=== PATIENT | female | born 1990 | race Hispanic/Latino ===

== ENCOUNTER 2018-01-01 16:11 | Emergency (ER) | payer OTHER, SELFPAY ==
[2018-01-01] MEDS ORDERED: NA CHLORIDE 0.9% 1,000 ML ONE (16:39)
[2018-01-01 16:53] LABS: Absolute Lymphocytes (CBC) 0.7 K/uL (0.7-4.9); Absolute Monocytes 0.5 K/uL (0.1-1.3); Absolute Neutrophil 2.3 K/uL (1.8-8.0); Basophils % 0.2 % (0-1.3); Eosinophils % 0.1 % (0-4.4); Lymphocytes % 20.9 % (15.3-44.8); MCH 28.7 pg (27.0-35.0); MCV 85.3 fL (80-100); MPV 10.1 fL (7.6-11.3); Monocytes % 13.7 % (3.3-12.3); RBC Red Blood Cell Count 5.27 M/uL (3.86-4.86)
--- NOTE | 2018-01-01 17:16 | EDPHYS ---
Physician Documentation [facility] Name: Meron Delvalle Age: 27 yrs Sex: Female : 1990 Arrival Date: 01/01/2018 Time: 16:12 Bed 16 Private MD: None, None ED Physician Myron Trna HPI: 01/01 17:08 This 27 yrs old Female presents to ER via Ambulatory with complaints of Flu gay Symptoms. 17:08 The patient or guardian reports cough. Onset: The symptoms/episode began/occurred 2 gay day(s) ago. Modifying factors: The symptoms are alleviated by nothing. the symptoms are aggravated by cold environment. The patient or guardian reports cough, that is intermittent, hoarse voice. Severity of symptoms: At their worst the symptoms were mild, in the emergency department the symptoms are unchanged. Associated signs and symptoms: Pertinent positives: fever, rhinorrhea, sore throat. Severity of symptoms: At their worst the symptoms were mild moderate in the emergency department the symptoms are unchanged. 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 - Social history:: Smoking status: Patient/guardian denies using tobacco. - Ebola Screening: : No symptoms or risks identified at this time. ROS: 17:08 Constitutional: Negative for fever, chills, and weight loss, Eyes: Negative for injury, gay pain, redness, and discharge, Neck: Negative for injury, pain, and swelling, Respiratory: Negative for shortness of breath, cough, wheezing, and pleuritic chest pain, Abdomen/GI: Negative for abdominal pain, nausea, vomiting, diarrhea, and constipation, Back: Negative for injury and pain, : Negative for injury, bleeding, discharge, and swelling, MS/Extremity: Negative for injury and deformity, Skin: Negative for injury, rash, and discoloration, Neuro: Negative for headache, weakness, numbness, tingling, and seizure, Psych: Negative for depression, anxiety, suicide ideation, homicidal ideation, and hallucinations, Allergy/Immunology: Negative for hives, rash, and allergies, Endocrine: Negative for neck swelling, polydipsia, polyuria, polyphagia, and marked weight changes, Hematologic/Lymphatic: Negative for swollen nodes, abnormal bleeding, and unusual bruising. 17:08 ENT: Positive for difficulty swallowing. Exam: 17:08 Constitutional: This is a well developed, well nourished patient who is awake, alert, gay and in no acute distress. Head/Face: Normocephalic, atraumatic. Eyes: Pupils equal round and reactive to light, extra-ocular motions intact. Lids and lashes normal. Conjunctiva and sclera are non-icteric and not injected. Cornea within normal limits. Periorbital areas with no swelling, redness, or edema. Neck: Trachea midline, no thyromegaly or masses palpated, and no cervical lymphadenopathy. Supple, full range of motion without nuchal rigidity, or vertebral point tenderness. No Meningismus. Chest/axilla: Normal chest wall appearance and motion. Nontender with no deformity. No lesions are appreciated. Cardiovascular: Regular rate and rhythm with a normal S1 and S2. No gallops, murmurs, or rubs. Normal PMI, no JVD. No pulse deficits. Respiratory: Lungs have equal breath sounds bilaterally, clear to auscultation and percussion. No rales, rhonchi or wheezes noted. No increased work of breathing, no retractions or nasal flaring. Abdomen/GI: Soft, non-tender, with normal bowel sounds. No distension or tympany. No guarding or rebound. No evidence of tenderness throughout. Back: No spinal tenderness. No costovertebral tenderness. Full range of motion. Skin: Warm, dry with normal turgor. Normal color with no rashes, no lesions, and no evidence of cellulitis. MS/ Extremity: Pulses equal, no cyanosis. Neurovascular intact. Full, normal range of motion. Neuro: Awake and alert, GCS 15, oriented to person, place, time, and situation. Cranial nerves II-XII grossly intact. Motor strength 5/5 in all extremities. Sensory grossly intact. Cerebellar exam normal. Normal gait. Psych: Awake, alert, with orientation to person, place and time. Behavior, mood, and affect are within normal limits. 17:08 ENT: Posterior pharynx: Tonsils: with erythema, Uvula: normal, midline, swelling, that is mild, erythema, that is mild. 17:08 Neck: ROM/movement: is normal, no acute changes, Meningeal signs: are not present, Kernig's sign is negative, Brudzinski's sign is negative. Vital Signs: 16:18 BP 136 / 101; Pulse 107; Resp 20; Temp 100.8; Pulse Ox 97% ; Weight 81.65 kg; Height 5 sv ft. 3 in. (160.02 cm); Pain 8/10; 17:31 BP 117 / 78; Pulse 95; Resp 18; Temp 99.6(O); Pulse Ox 100% on R/A; mg2 16:18 Body Mass Index 31.89 (81.65 kg, 160.02 cm) sv MDM: 16:21 Patient medically screened. [facility] 17:13 Data reviewed: vital signs, nurses notes, lab test result(s). [facility] 01/01 16:29 Order name: Flu [facility] 01/01 16:29 Order name: CBC with Diff [facility] 01/01 16:29 Order name: Comprehensive Metabolic Panel [facility] 01/01 16:29 Order name: Urine Culture [facility] 01/01 16:30 Order name: Strep [facility] 01/01 16:58 Order name: CBC with Automated Diff [facility] 01/01 16:58 Order name: Group A Streptococcus Rapid Sc; Complete Time: 17:13 [facility] 01/01 17:07 Order name: Influenza Screen (A ; Complete Time: 17:13 [facility] 01/01 17:22 Order name: CBC Smear Scan [facility] 01/01 17:22 Order name: Comprehensive Metabolic Panel [facility] 01/01 17:23 Order name: Urine Dipstick--Ancillary (enter results) 01/01 17:23 Order name: Urine --Ancillary (enter results) 01/01 16:29 Order name: Urine Dipstick-Ancillary (obtain specimen); Complete Time: 17:23 [facility] 01/01 16:29 Order name: Urine Test (obtain specimen); Complete Time: 17:23 [facility] Administered Medications: 16:29 Drug: NS 0.9% 1000 ml Route: IV; Rate: 1 bolus; Site: right antecubital; mg2 17:24 Follow up: IV Status: Completed infusion 17:15 Drug: Rocephin - (cefTRIAXone) 1 grams Route: IVPB; Infused Over: 30 mins; Site: right mg2 antecubital; 17:24 Follow up: IV Status: Completed infusion hj 17:23 Drug: Tamiflu 75 mg Route: PO; mg2 17:24 Follow up: Response: No adverse reaction hj 17:28 Drug: TORadol 30 mg Route: IVP; Site: right forearm; mg2 17:44 Follow up: Response: No adverse reaction Disposition: 01/01/18 17:15 Discharged to Home. Impression: Fever of other and unknown origin, Influenza due to identified novel influenza A virus, Urinary tract infection, site not specified. - Condition is Stable. - Discharge Instructions: Fever, Adult, Influenza, Adult, Urinary Tract Infection, Adult, Urinary Tract Infection, Adult, [id number], Influenza, Adult, Eqll-ne-[id number], Fever, Adult, [id number]. - Prescriptions for Zofran 4 mg Oral Tablet - take 1 tablet by ORAL route every 12 hours As needed; 20 tablet. Bactrim DS 800- 160 mg Oral Tablet - take 1 tablet by ORAL route every 12 hours for 5 days; 10 tablet. Tamiflu 75 mg Oral Capsule - take 1 tablet by ORAL route every 12 hours for 5 days; 10 tablet. - Medication Reconciliation Form, Thank You Letter, Antibiotic Education, Prescription Opioid Use, Work release form form. - Follow up: Private Physician; When: 2 - 3 days; Reason: Recheck today's complaints, Continuance of care, Re-evaluation by your physician. - Problem is new. - Symptoms have improved. Signatures: Dispatcher [employer] Kristy Torres RN RN sv Anderson, Corey, MD MD cha Joaquin, Henry, RN RN Sean eRyes RN RN mg2 Corrections: (The following items were deleted from the chart) 18:00 17:15 01/01/2018 17:15 Discharged to Home. Impression: Fever of other and unknown hj origin; Influenza due to identified novel influenza A virus; Urinary tract infection, site not specified. Condition is Stable. Forms are Medication Reconciliation Form, Thank You Letter, Antibiotic Education, Prescription Opioid Use. Follow up: Private Physician; When: 2 - 3 days; Reason: Recheck today's complaints, Continuance of care, Re-evaluation by your physician. Problem is new. Symptoms have improved. gay
--- NOTE | 2018-01-01 17:16 | ER ---
Nurse's Notes [facility] Name: Meron Delvalle Age: 27 yrs Sex: Female : 1990 Arrival Date: 01/01/2018 Time: 16:12 Bed 16 Private MD: None, None Diagnosis: Fever of other and unknown origin;Influenza due to identified novel influenza A virus;Urinary tract infection, site not specified Presentation: 01/01 16:16 Presenting complaint: Patient states: migraine with photophobia, bodyaches, chills, sv sore throat since Monday. Transition of care: patient was not received from another setting of care. Onset of symptoms was December 30, 2017. Care prior to arrival: None. 16:16 Method Of Arrival: Ambulatory sv 16:16 Acuity: MACI 3 sv 16:21 Risk Assessment: Do you want to hurt yourself or someone else? Patient reports no hj desire to harm self or others. Initial Sepsis Screen: Does the patient meet any 2 criteria? No. Patient's initial sepsis screen is negative. Does the patient have a suspected source of infection? No. Patient's initial sepsis screen is negative. Triage Assessment: 16:19 General: Appears in no apparent distress. uncomfortable, Behavior is calm, cooperative, sv appropriate for age. Pain: Complains of pain in face and scalp Pain currently is 8 out of 10 on a pain scale. Neuro: Level of Consciousness is awake, alert, obeys commands, Oriented to person, place, time, situation, Moves all extremities. Full function Gait is steady, Reports headache photophobia. Respiratory: Respiratory effort is even, unlabored, Respiratory pattern is regular, symmetrical. 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 - Social history:: Smoking status: Patient/guardian denies using tobacco. - Ebola Screening: : No symptoms or risks identified at this time. Screenin:20 Abuse screen: Denies threats or abuse. Denies injuries from another. Nutritional hj screening: No deficits noted. Tuberculosis screening: No symptoms or risk factors identified. Fall Risk None identified. Assessment: 16:40 General: Appears in no apparent distress. uncomfortable, Behavior is calm, cooperative, mg2 appropriate for age. Pain: Denies pain. Pain: Complains of pain in head, throat. Neuro: Level of Consciousness is awake, alert, obeys commands, Oriented to person, place, time, situation, Appropriate for age. Cardiovascular: Capillary refill < 3 seconds Patient's skin is warm and dry. Respiratory: Airway is patent Respiratory effort is even, unlabored, Respiratory pattern is regular, symmetrical. GI: : No signs and/or symptoms were reported regarding the genitourinary system. EENT: No signs and/or symptoms were reported regarding the EENT system. Derm: No signs and/or symptoms reported regarding the dermatologic system. Musculoskeletal: No signs and/or symptoms reported regarding the musculoskeletal system. 17:43 Reassessment: Patient and/or family updated on plan of care and expected duration. Pain hj level reassessed. Patient is alert, oriented x 3, equal unlabored respirations, skin warm/dry/pink. for D/C;. Vital Signs: 16:18 BP 136 / 101; Pulse 107; Resp 20; Temp 100.8; Pulse Ox 97% ; Weight 81.65 kg; Height 5 sv ft. 3 in. (160.02 cm); Pain 8/10; 17:31 BP 117 / 78; Pulse 95; Resp 18; Temp 99.6(O); Pulse Ox 100% on R/A; mg2 16:18 Body Mass Index 31.89 (81.65 kg, 160.02 cm) sv ED Course: 16:12 Patient arrived in ED. mr 16:13 None, None is Private Physician. mr 16:17 Triage completed. sv 16:18 Arm band placed on. sv 16:20 [place] Jaramillo, JOSÉ ANTONIO is Primary Nurse. hj 16:21 Myron Tran MD is Attending Physician. gay 16:21 Patient has correct armband on for positive identification. Bed in low position. Call hj light in reach. Side rails up X 1. Adult w/ patient. 16:40 Initial lab(s) drawn, by me, sent to lab. Inserted saline lock: 22 gauge in right mg2 antecubital area, using aseptic technique. Blood collected. 17:53 No provider procedures requiring assistance completed. IV discontinued, intact, hj bleeding controlled, No redness/swelling at site. Pressure dressing applied. Administered Medications: 16:29 Drug: NS 0.9% 1000 ml Route: IV; Rate: 1 bolus; Site: right antecubital; mg2 17:24 Follow up: IV Status: Completed infusion hj 17:15 Drug: Rocephin - (cefTRIAXone) 1 grams Route: IVPB; Infused Over: 30 mins; Site: right mg2 antecubital; 17:24 Follow up: IV Status: Completed infusion hj 17:23 Drug: Tamiflu 75 mg Route: PO; mg2 17:24 Follow up: Response: No adverse reaction hj 17:28 Drug: TORadol 30 mg Route: IVP; Site: right forearm; mg2 17:44 Follow up: Response: No adverse reaction Outcome: 17:15 Discharge ordered by . [facility] 17:53 Discharged to home ambulatory, with family. 17:53 Condition: stable 17:53 Discharge instructions given to patient, family, Instructed on discharge instructions, follow up and referral plans. medication usage, Demonstrated understanding of instructions, follow-up care, medications, Prescriptions given X 3. 18:00 Patient left the ED. Signatures: Kristy Steward, RN RN Myron Payton MD MD cha Rivera, Mary mr Cuba Jaramillo RN RN Sean Reyes RN RN mg2 Corrections: (The following items were deleted from the chart) 16:19 16:16 Presenting complaint: Patient states: migraine, bodyaches, chills, sore throat sv since Monday. sv 16:19 16:18 Pulse 107bpm; Resp 20bpm; Pulse Ox 97%; Temp 100.8F; sv sv 16:19 16:18 Pulse 107bpm; Resp 20bpm; Pulse Ox 97%; Temp 100.8F; 81.65 kg; Height 5 ft. 3 sv in.; BMI: 31.8; Pain 8/10; sv
[2018-01-01 17:21] LABS: Platelet Estimate ADEQ; Urine White Blood Cell Casts OK
[2018-01-01 17:22] LABS: Albumin 4.1 g/dL (3.4-5.0); Bilirubin Total 0.4 mg/dL (0.2-1.0); Blood Morphology Comment NOT SEEN (NOT SEEN); Potassium 3.5 mmol/L (3.5-5.1); Protein, Total 8.2 g/dL (6.4-8.2)
[2018-01-01] MEDS ORDERED: OSELTAMIVIR 75 MG CAP ONE (17:27)
[2018-01-01] MEDS ORDERED: CEFTRIAXONE/SWI 1gm 1 GM/10 ML SYR ONE (17:28)
[2018-01-01] MEDS ORDERED: KETOROLAC 30 MG/ML INJ ONE (17:35)
[2018-01-01 18:35] LABS: Urine Blood 2+ (NEG); Urine Glucose NEGATIVE (NEG); Urine Protein TRACE (NEG); Urine Specific Gravity >1.030 (1.005-1.030)
[2018-01-01 19:52] VITALS: BP 117/78; TEMP 99.6; O2SAT 100
== END 2018-01-01 18:00 | disposition home or self-care (01) ==
LOC: ER 16:11
DX: J10.1 Influenza due to other identified influenza virus with other respiratory manifestations (principal); N39.0 Urinary tract infection, site not specified
CPT/HCPCS: 36415; 80053; 81003; 81025; 85025; 87070; 87081; 87086; 87088; 87804; 99284; J0696; J7030

== ENCOUNTER 2018-11-28 07:42 | Emergency (ER) | payer SELFPAY ==
--- NOTE | 2018-11-28 08:16 | EDPHYS ---
Physician Documentation [facility] Name: Meron Delvalle Age: 28 yrs Sex: Female : 1990 Arrival Date: 11/28/2018 Time: 07:45 Bed 7 Private MD: None, None ED Physician Aaron Zazueta HPI: 11/28 07:49 This 28 yrs old Female presents to ER via Unassigned with complaints of Hand kdr Swelling, Feet Swelling. 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 - Social history:: Smoking status: Patient/guardian denies using tobacco. - Ebola Screening: : Patient negative for fever greater than or equal to 101.5 degrees Fahrenheit, and additional compatible Ebola Virus Disease symptoms Patient denies exposure to infectious person Patient denies travel to an Ebola-affected area in the 21 days before illness onset No symptoms or risks identified at this time. Vital Signs: 08:08 BP 132 / 98; Pulse 86; Resp 16; Temp 97.8; Pulse Ox 100% on R/A; Weight 97.52 kg; iw Height 5 ft. 3 in. (160.02 cm); 08:08 Body Mass Index 38.09 (97.52 kg, 160.02 cm) iw MDM: 08:15 Patient medically screened. kdr Administered Medications: 08:35 Drug: predniSONE 40 mg Route: PO; sv 08:35 Follow up: Response: Medication administered at discharge. sv Disposition: 11/28/18 08:15 Discharged to Home. Impression: Rash and other nonspecific skin eruption, Pruritus. - Condition is Stable. - Prescriptions for Hydroxyzine HCl 25 mg Oral Tablet - take 1 tablet by ORAL route every 6 hours As needed; 20 tablet. Medrol (Emery) 4 mg Oral Tablets, Dose Pack - take 1 tablet by ORAL route as directed - follow package instructions; 1 packet. Pepcid 20 mg Oral Tablet - take 1 tablet by ORAL route once daily; 20 tablet. - Medication Reconciliation Form, Thank You Letter form. - Follow up: Private Physician; When: 2 - 3 days; Reason: If symptoms return, Further diagnostic work-up, Recheck today's complaints, Continuance of care, Re-evaluation by your physician. - Problem is new. - Symptoms have improved. Signatures: Kristy Steward, RN RN Aaron Zazueta MD MD [facility] Sharmin Lee RN RN iw Corrections: (The following items were deleted from the chart) 08:36 08:15 11/28/2018 08:15 Discharged to Home. Impression: Rash and other nonspecific skin sv eruption; Pruritus. Condition is Stable. Forms are Medication Reconciliation Form, Thank You Letter, Antibiotic Education, Prescription Opioid Use. Follow up: Private Physician; When: 2 - 3 days; Reason: If symptoms return, Further diagnostic work-up, Recheck today's complaints, Continuance of care, Re-evaluation by your physician. Problem is new. Symptoms have improved. kdr
--- NOTE | 2018-11-28 08:16 | ER ---
Nurse's Notes [facility] Name: Meron Delvalle Age: 28 yrs Sex: Female : 1990 Arrival Date: 11/28/2018 Time: 07:45 Bed 7 Private MD: None, None Diagnosis: Rash and other nonspecific skin eruption;Pruritus Presentation: 11/28 08:02 Presenting complaint: Patient states: woke up this morning with feet and hand swelling, iw feels itchy and tingly and also has some bumps on the back of her head that have been bothering her. Transition of care: patient was not received from another setting of care. Onset of symptoms was November 28, 2018. Risk Assessment: Do you want to hurt yourself or someone else? Patient reports no desire to harm self or others. Initial Sepsis Screen: Does the patient meet any 2 criteria? No. Patient's initial sepsis screen is negative. Does the patient have a suspected source of infection? No. Patient's initial sepsis screen is negative. Care prior to arrival: None. 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 - Social history:: Smoking status: Patient/guardian denies using tobacco. - Ebola Screening: : Patient negative for fever greater than or equal to 101.5 degrees Fahrenheit, and additional compatible Ebola Virus Disease symptoms Patient denies exposure to infectious person Patient denies travel to an Ebola-affected area in the 21 days before illness onset No symptoms or risks identified at this time. Screenin:07 Abuse screen: Denies threats or abuse. Denies injuries from another. Nutritional sv screening: No deficits noted. Tuberculosis screening: No symptoms or risk factors identified. Fall Risk None identified. Assessment: 08:20 General: Appears in no apparent distress. uncomfortable, well developed, Behavior is sv calm, cooperative, appropriate for age. General: Reports itching to feet and hands. Pain: Denies pain. Neuro: Level of Consciousness is awake, alert, obeys commands, Oriented to person, place, time, situation, Moves all extremities. Full function Gait is steady. Respiratory: Airway is patent Respiratory effort is even, unlabored, Respiratory pattern is regular, symmetrical. Derm: Skin is pink, warm \\T\\ dry. Wound noted scalp Wound is "bumps". Musculoskeletal: Range of motion: intact in all extremities. Vital Signs: 08:08 BP 132 / 98; Pulse 86; Resp 16; Temp 97.8; Pulse Ox 100% on R/A; Weight 97.52 kg; iw Height 5 ft. 3 in. (160.02 cm); 08:08 Body Mass Index 38.09 (97.52 kg, 160.02 cm) iw ED Course: 07:45 Patient arrived in ED. mr 07:45 None, None is Private Physician. mr 07:48 Aaron Zazueta MD is Attending Physician. kdr 07:59 Kristy Steward RN is Primary Nurse. sv 07:59 Arm band placed on. sv 07:59 Patient has correct armband on for positive identification. Bed in low position. Call sv light in reach. Pulse ox on. NIBP on. 08:05 Triage completed. iw 08:35 No provider procedures requiring assistance completed. Patient did not have IV access sv during this emergency room visit. Administered Medications: 08:35 Drug: predniSONE 40 mg Route: PO; sv 08:35 Follow up: Response: Medication administered at discharge. sv Outcome: 08:15 Discharge ordered by . kdr 08:35 Discharged to home ambulatory. sv 08:35 Condition: stable 08:35 Discharge instructions given to patient, Instructed on discharge instructions, follow up and referral plans. medication usage, Demonstrated understanding of instructions, follow-up care, medications, Prescriptions given X 3. 08:36 Patient left the ED. sv Signatures: Kristy Steward, JOSÉ ANTONIO CHOU Aaron Zazueta MD MD [facility] aaron Irene, RN RN iw
[2018-11-28] MEDS ORDERED: predniSONE 20 MG TAB ONE (08:21)
[2018-11-28 08:41] VITALS: BP 132/98; TEMP 97.8; O2SAT 100
== END 2018-11-28 08:36 | disposition home or self-care (01) ==
LOC: ER 07:42
DX: L29.9 Pruritus, unspecified (principal)
CPT/HCPCS: 99283; J7512

== ENCOUNTER 2018-11-30 02:24 | Emergency (ER) | payer SELFPAY ==
[2018-11-30] MEDS ORDERED: IBUPROFEN 200 MG TAB PO ONE (03:51)
[2018-11-30 03:55] LABS: Absolute Lymphocytes (CBC) 1.5 K/uL (0.7-4.9); Basophils % 0.9 % (0-1.3); Hematocrit 36.6 % (36.0-45.0); Lymphocytes % 28.1 % (15.3-44.8); MPV 8.9 fL (7.6-11.3); RBC Red Blood Cell Count 4.41 M/uL (3.86-4.86)
[2018-11-30 04:07] LABS: BUN Blood Urea Nitrogen 8 mg/dL (7-18); Bicarbonate 26 mmol/L (21-32); Glucose Level 95 mg/dL (74-106); Potassium 3.2 mmol/L (3.5-5.1); Sodium Level 143 mmol/L (136-145)
[2018-11-30 04:10] LABS: C-Reactive Protein < 2.90 mg/L (<3.00)
[2018-11-30] MEDS ORDERED: KETOROLAC 30 MG/ML INJ ONE (05:06)
--- NOTE | 2018-11-30 05:25 | EDPHYS ---
Physician Documentation [facility] Name: Meron Delvalle Age: 28 yrs Sex: Female : 1990 Arrival Date: 11/30/2018 Time: 02:30 Bed 20 Private MD: ED Physician Aaron Zazueta HPI: 11/30 03:27 This 28 yrs old Female presents to ER via Ambulatory with complaints of kdr Nausea, Hand Pain, Pressure iin back of head, lIghit headed. 03:27 The patient states that she awoke this evening with her hands and feet feeling tight kdr and painful and the also was having altman along the occipital scalp line ongoing for four days. Onset: The symptoms/episode began/occurred The hands and feet were just upon awakening and the occiptal hairline discomfort has been for a few days. Severity of symptoms: At their worst the symptoms were mild in the emergency department the symptoms have improved mildly. The patient has not experienced similar symptoms in the past. The patient has not recently seen a physician. 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 - Social history:: Smoking status: Patient/guardian denies using tobacco, Patient/guardian denies using alcohol, street drugs. - Ebola Screening: : No symptoms or risks identified at this time. ROS: 03:27 Constitutional: Negative for fever, chills, and weight loss, Eyes: Negative for injury, kdr pain, redness, and discharge, Neck: Negative for injury, pain, and swelling, Cardiovascular: Negative for chest pain, palpitations, and edema, Respiratory: Negative for shortness of breath, cough, wheezing, and pleuritic chest pain, Abdomen/GI: Negative for abdominal pain, nausea, vomiting, diarrhea, and constipation, Back: Negative for injury and pain, : Negative for injury, bleeding, discharge, and swelling, Skin: Negative for injury, rash, and discoloration, Neuro: Negative for headache, weakness, numbness, tingling, and seizure activity. Psych: Negative for depression, anxiety, suicide ideation, homicidal ideation, and hallucinations, Allergy/Immunology: Negative for hives, rash, and allergies, Endocrine: Negative for neck swelling, polydipsia, polyuria, polyphagia, and marked weight changes, Hematologic/Lymphatic: Negative for swollen nodes, abnormal bleeding, and unusual bruising. 03:27 Neck: Positive for pain at rest, of the right posterior aspect of neck and left posterior aspect of neck. 03:27 MS/extremity: Positive for Tightness in her hands and feet. Exam: 03:27 Constitutional: This is a well developed, well nourished patient who is awake, alert, kdr and in no acute distress. Eyes: Pupils equal round and reactive to light, extra-ocular motions intact. Lids and lashes normal. Conjunctiva and sclera are non-icteric and not injected. Cornea within normal limits. Periorbital areas with no swelling, redness, or edema. Neck: Trachea midline, no thyromegaly or masses palpated, and no cervical lymphadenopathy. Supple, full range of motion without nuchal rigidity, or vertebral point tenderness. No Meningismus. Chest/axilla: Normal chest wall appearance and motion. Nontender with no deformity. No lesions are appreciated. Cardiovascular: Regular rate and rhythm with a normal S1 and S2. No gallops, murmurs, or rubs. Normal PMI, no JVD. No pulse deficits. Respiratory: Lungs have equal breath sounds bilaterally, clear to auscultation and percussion. No rales, rhonchi or wheezes noted. No increased work of breathing, no retractions or nasal flaring. Abdomen/GI: Soft, non-tender, with normal bowel sounds. No distension or tympany. No guarding or rebound. No evidence of tenderness throughout. Back: No spinal tenderness. No costovertebral tenderness. Full range of motion. Skin: Warm, dry with normal turgor. Normal color with no rashes, no lesions, and no evidence of cellulitis. MS/ Extremity: Pulses equal, no cyanosis. Neurovascular intact. Full, normal range of motion. Neuro: Awake and alert, GCS 15, oriented to person, place, time, and situation. Cranial nerves II-XII grossly intact. Motor strength 5/5 in all extremities. Sensory grossly intact. Cerebellar exam normal. Normal gait. Psych: Awake, alert, with orientation to person, place and time. Behavior, mood, and affect are within normal limits. 03:27 Head/face: Noted is tenderness, that is mild, of the left base of the skull and right base of the skull. Vital Signs: 02:52 BP 147 / 109; Pulse 80; Resp 16 S; Temp 97.7(O); Pulse Ox 100% on R/A; Weight 90.72 kg bb (R); Height 5 ft. 3 in. (160.02 cm) (R); Pain 8/10; 03:49 BP 139 / 92; Pulse 84; Resp 14; Pulse Ox 99% on R/A; Pain 7/10; ch 04:53 BP 120 / 80; Pulse 86; Resp 16; Temp 98.2(O); Pulse Ox 97% on R/A; Pain 8/10; bb 05:35 BP 132 / 81; Pulse 82; Resp 16; Temp 98.9; Pulse Ox 98% on R/A; Pain 7/10; ch 02:52 Body Mass Index 35.43 (90.72 kg, 160.02 cm) bb MDM: 03:27 Data reviewed: vital signs, nurses notes, lab test result(s). Counseling: I had a kdr detailed discussion with the patient and/or guardian regarding: the historical points, exam findings, and any diagnostic results supporting the discharge/admit diagnosis, lab results, the need for outpatient follow up. 05:24 Patient medically screened. kdr 05:32 ED course: The patient had only slight relief of her discomfort in the back of her kdr head. She was otherwise stable and without c/o in the ED. 11/30 03:26 Order name: CBC with Diff kdr 11/30 03:26 Order name: Chem 7 kdr 11/30 03:26 Order name: CRP kdr 11/30 03:26 Order name: ESR kdr 11/30 03:27 Order name: CBC with Automated Diff; Complete Time: 05:20 EDMS 11/30 03:27 Order name: Basic Metabolic Panel; Complete Time: 05:20 EDMS 11/30 03:27 Order name: C-Reactive Protein; Complete Time: 05:20 EDMS 11/30 03:27 Order name: Sedimentation Rate, Westergren; Complete Time: 05:20 EDMS 11/30 05:14 Order name: Urine Dipstick--Ancillary (enter results) 1 11/30 05:14 Order name: Urine --Ancillary (enter results) em1 11/30 05:00 Order name: Urine Dipstick-Ancillary (obtain specimen); Complete Time: 05:00 11/30 05:00 Order name: Urine Test (obtain specimen); Complete Time: 05:00 ch Administered Medications: 03:47 Drug: Motrin 600 mg Route: PO; 04:53 Follow up: Response: No adverse reaction; No change in condition 05:00 Drug: TORadol - Ketorolac 15 mg Route: IM; Site: right deltoid; 05:37 Follow up: Response: No adverse reaction 05:37 Drug: predniSONE 40 mg Route: PO; 05:37 Follow up: Response: No adverse reaction; Medication administered at discharge. Disposition: 11/30/18 05:24 Discharged to Home. Impression: Pain in hand and fingers, Pain in limb, hand, foot, fingers and toes, Acute lymphadenitis, unspecified. - Condition is Stable. - Discharge Instructions: Musculoskeletal Pain, Antibiotic Medicine, Isaj-ky-Arow, Joint Pain, Jizr-kn-Dxyi, Lymphadenopathy. - Prescriptions for Ibuprofen 600 mg Oral Tablet - take 1 tablet by ORAL route every 6 hours As needed take with food; 30 tablet. Keflex 500 mg Oral Capsule - take 1 capsule by ORAL route every 8 hours for 7 days; 21 capsule. Medrol (Emery) 4 mg Oral Tablets, Dose Pack - take 1 tablet by ORAL route as directed - follow package instructions; 1 packet. - Work release form, Medication Reconciliation Form, Thank You Letter form. - Follow up: Private Physician; When: 2 - 3 days; Reason: If symptoms return, Further diagnostic work-up, Recheck today's complaints, Continuance of care, Re-evaluation by your physician. - Problem is new. - Symptoms have improved. Signatures: Dispatcher [employer] EDJulia Saldana, RN RN Aaron Zazueta MD MD [facility] Glenys Griffin RN RN bb Corrections: (The following items were deleted from the chart) 05:40 05:24 11/30/2018 05:24 Discharged to Home. Impression: Pain in hand and fingers; Pain ch in limb, hand, foot, fingers and toes; Acute lymphadenitis, unspecified. Condition is Stable. Forms are Medication Reconciliation Form, Thank You Letter, Antibiotic Education, Prescription Opioid Use. Follow up: Private Physician; When: 2 - 3 days; Reason: If symptoms return, Further diagnostic work-up, Recheck today's complaints, Continuance of care, Re-evaluation by your physician. Problem is new. Symptoms have improved. kdr
--- NOTE | 2018-11-30 05:25 | ER ---
Nurse's Notes [facility] Name: Meron Delvalle Age: 28 yrs Sex: Female : 1990 Arrival Date: 11/30/2018 Time: 02:30 Bed 20 Private MD: Diagnosis: Pain in hand and fingers;Pain in limb, hand, foot, fingers and toes;Acute lymphadenitis, unspecified Presentation: 11/30 02:50 Presenting complaint: Patient states: she woke up approx 30 mins ago and states her bb feet and hands feel really tight, she has bumps on the back of her head, she has pressure in the back of her head and she feels nauseous and light headed. Transition of care: patient was not received from another setting of care. Onset of symptoms was November 30, 2018. Risk Assessment: Do you want to hurt yourself or someone else? Patient reports no desire to harm self or others. Initial Sepsis Screen: Does the patient meet any 2 criteria? No. Patient's initial sepsis screen is negative. Does the patient have a suspected source of infection? No. Patient's initial sepsis screen is negative. Care prior to arrival: None. 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 - Social history:: Smoking status: Patient/guardian denies using tobacco, Patient/guardian denies using alcohol, street drugs. - Ebola Screening: : No symptoms or risks identified at this time. Screenin:49 Abuse screen: Denies threats or abuse. Denies injuries from another. Nutritional ch screening: No deficits noted. Tuberculosis screening: No symptoms or risk factors identified. Fall Risk None identified. Assessment: 03:10 General: Appears in no apparent distress. comfortable, Behavior is calm, cooperative, ch appropriate for age. Pain: Complains of pain in head and right base of the skull and left base of the skull Pain currently is 7 out of 10 on a pain scale. Pain began suddenly. Neuro: No deficits noted. Respiratory: Airway is patent Respiratory effort is even, unlabored, Breath sounds are clear bilaterally. GI: Abdomen is round non-distended, obese. Derm: Skin is pink, warm \T\ dry. 04:53 Reassessment: Patient appears in no apparent distress at this time. No changes from bb previously documented assessment. Patient and/or family updated on plan of care and expected duration. Pain level reassessed. Patient is alert, oriented x 3, equal unlabored respirations, skin warm/dry/pink. pt states the back of her head still hurts, pain is a 8. 05:35 Reassessment: Patient appears in no apparent distress at this time. Patient and/or ch family updated on plan of care and expected duration. Pain level reassessed. Patient is alert, oriented x 3, equal unlabored respirations, skin warm/dry/pink. Patient states feeling better. Patient states symptoms have improved. Vital Signs: 02:52 BP 147 / 109; Pulse 80; Resp 16 S; Temp 97.7(O); Pulse Ox 100% on R/A; Weight 90.72 kg bb (R); Height 5 ft. 3 in. (160.02 cm) (R); Pain 8/10; 03:49 BP 139 / 92; Pulse 84; Resp 14; Pulse Ox 99% on R/A; Pain 7/10; ch 04:53 BP 120 / 80; Pulse 86; Resp 16; Temp 98.2(O); Pulse Ox 97% on R/A; Pain 8/10; bb 05:35 BP 132 / 81; Pulse 82; Resp 16; Temp 98.9; Pulse Ox 98% on R/A; Pain 7/10; ch 02:52 Body Mass Index 35.43 (90.72 kg, 160.02 cm) ED Course: 02:30 Patient arrived in ED. es 02:44 Aaron Zazueta MD is Attending Physician. kdr 02:50 Door closed. Noise minimized. Lights dimmed. Warm blanket given. Pillow given. PO ch fluids given. 02:52 Triage completed. bb 02:52 Arm band placed on Patient placed in an exam room, on a stretcher, on pulse oximetry. bb 03:47 Julia Willis, JOSÉ ANTONIO is Primary Nurse. ch 03:47 ESR Sent. ch 03:47 CRP Sent. ch 03:47 Chem 7 Sent. ch 03:47 CBC with Diff Sent. ch 03:48 Sedimentation Rate, Westergren Sent. ch 03:48 C-Reactive Protein Sent. ch 03:48 Basic Metabolic Panel Sent. ch 03:48 CBC with Automated Diff Sent. ch 03:49 No apparent distress. Resting quietly. ch 03:49 Patient has correct armband on for positive identification. Bed in low position. Call light in reach. Side rails up X 1. Adult w/ patient. Pulse ox on. NIBP on. 03:49 No provider procedures requiring assistance completed. ch 05:36 No apparent distress. Resting quietly. ch 05:36 Patient did not have IV access during this emergency room visit. ch Administered Medications: 03:47 Drug: Motrin 600 mg Route: PO; 04:53 Follow up: Response: No adverse reaction; No change in condition bb 05:00 Drug: TORadol - Ketorolac 15 mg Route: IM; Site: right deltoid; ch 05:37 Follow up: Response: No adverse reaction ch 05:37 Drug: predniSONE 40 mg Route: PO; ch 05:37 Follow up: Response: No adverse reaction; Medication administered at discharge. Outcome: 05:24 Discharge ordered by . kdr 05:36 Discharged to home ambulatory. 05:36 Condition: stable 05:36 Discharge instructions given to patient, Instructed on discharge instructions, follow up and referral plans. medication usage, Demonstrated understanding of instructions, follow-up care, medications, Prescriptions given X 3. 05:40 Patient left the ED. Signatures: Julia Willis, RN RN Aaron Zazueta MD MD kdr Salyer, Edna es Ballard, Brenda RN RN bb
[2018-11-30] MEDS ORDERED: POTASSIUM CL SA 10 MEQ TAB PO ONE (05:31)
[2018-11-30] MEDS ORDERED: predniSONE 20 MG TAB ONE (05:31)
[2018-11-30 05:50] VITALS: BP 132/81; TEMP 98.9; O2SAT 98
[2018-11-30 07:21] LABS: Urine Blood NEGATIVE (NEG); Urine Glucose NEGATIVE (NEG); Urine Protein NEGATIVE (NEG); Urine Specific Gravity 1.025 (1.005-1.030); Urine pH 5.5 (5.0-7.0)
== END 2018-11-30 05:40 | disposition home or self-care (01) ==
LOC: ER 02:24
DX: L04.9 Acute lymphadenitis, unspecified (principal); M79.642 Pain in left hand; M79.641 Pain in right hand; M79.671 Pain in right foot; M79.662 Pain in left lower leg; M79.661 Pain in right lower leg; M79.672 Pain in left foot
CPT/HCPCS: 36415; 80048; 81003; 81025; 85025; 85652; 86140; 96372; 99284; J7512

== ENCOUNTER 2019-07-25 12:48 | Emergency (ER) | payer SELFPAY ==
--- OUTSIDE RECORDS SUMMARY | 2019-07-25 12:50 | XMS REPORT | Continuity of Care Document ---
:1990 Author Organization [facility] t Address [address] [place] [address] Dr. Pompa [address] [place] [id number] Care Team Providers Name Role Phone Unavailable Unavailable Unavailable Problems This patient has no known problems. Allergies, Adverse Reactions, Alerts This patient has no known allergies or adverse reactions. Medications This patient has no known medications. Procedures This patient has no known procedures. Results This patient has no known results.
--- NOTE | 2019-07-25 14:22 | ER ---
Nurse's Notes [facility] Name: Meron Delvalle Age: 28 yrs Sex: Female : 1990 Arrival Date: 07/25/2019 Time: 12:52 Bed 12 Private MD: Diagnosis: Allergic contact dermatitis Presentation: 07/24 13:00 Chief complaint: Hives on trunk and extremities x 2 days, reports recent detergent ll1 change. Denies SOB. Coronavirus screen: Proceed with normal triage. Ebola Screen: No symptoms or risks identified at this time. Onset: The symptoms/episode began/occurred yesterday. Anaphylaxis evaluation, the patient reports or I have noted the following symptoms which indicate a significant risk of anaphylaxis: no signs or symptoms of anaphylaxis were noted. Initial Sepsis Screen: Does the patient meet any 2 criteria? No. Patient's initial sepsis screen is negative. Does the patient have a suspected source of infection? No. Patient's initial sepsis screen is negative. Risk Assessment: Do you want to hurt yourself or someone else? Patient reports no desire to harm self or others. Onset of symptoms was July 24, 2019. 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 - Social history:: Smoking status: Patient denies any tobacco usage or history of. Vital Signs: 13:00 BP 134 / 82; Pulse 87; Resp 16; Temp 97.9; Pulse Ox 100% on R/A; Weight 90.72 kg; ll1 Height 5 ft. 3 in. (160.02 cm); Pain 3/10; 13:00 Body Mass Index 35.43 (90.72 kg, 160.02 cm) ll1 ED Course: 12:52 Patient arrived in ED. am2 13:02 Triage completed. ll1 13:02 Arm band placed on. ll1 13:07 Dee Hayes FNP-C is PHCP. kb 13:07 Aaron Zazueta MD is Attending Physician. kb 14:24 Stacie Oneill, RN is Primary Nurse. hb Administered Medications: 14:30 Drug: Pepcid 20 mg Route: PO; hb 14:33 Follow up: Response: Medication administered at discharge. hb 14:33 Drug: predniSONE 40 mg Route: PO; hb 14:33 Follow up: Response: Medication administered at discharge. hb Outcome: 14:20 Discharge ordered by . kb 14:34 Patient left the ED. hb Signatures: Dee Hayes, PMP PROJECT MANAGER-C PMP PROJECT MANAGER-Ckb Stacie Oneill, RN RN hb Soumya Griffiths am2 Madison Kumar RN RN ll1
--- NOTE | 2019-07-25 14:23 | EDPHYS ---
Physician Documentation [facility] Name: Meron Delvalle Age: 28 yrs Sex: Female : 1990 Arrival Date: 07/25/2019 Time: 12:52 Bed 12 Private MD: ED Physician Aaron Zazueta HPI: 07/24 14:18 This 28 yrs old Female presents to ER via Ambulatory with complaints of kb Allergic Reaction. 14:18 The patient presents with itching, rash. Onset: The symptoms/episode began/occurred 2 kb day(s) ago, and became worse. Associated signs and symptoms: Pertinent positives: rash, Pertinent negatives: abdominal pain, Altered mental status chest pain, dysphagia, fever, headache, hives, Light headed nausea, shortness of breath, swelling, Syncope vomiting. Possible causes: Gain scent beads . At home the patient or guardian has treated the symptoms with nothing. Severity of symptoms: At their worst the symptoms were moderate in the emergency department the symptoms are unchanged. The patient has not experienced similar symptoms in the past. The patient has not recently seen a physician. Pt reports she recently started using Gain Scent beads in her laundry and has been breaking out in an itchy rash since then. . 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 - Social history:: Smoking status: Patient denies any tobacco usage or history of. ROS: 14:18 Constitutional: Negative for fever, chills, and weight loss, Cardiovascular: Negative kb for chest pain, palpitations, and edema, Respiratory: Negative for shortness of breath, cough, wheezing, and pleuritic chest pain, Abdomen/GI: Negative for abdominal pain, nausea, vomiting, diarrhea, and constipation, Back: Negative for injury and pain, MS/Extremity: Negative for injury and deformity, Neuro: Negative for headache, weakness, numbness, tingling, and seizure. 14:18 Skin: Positive for rash, diffusely. Exam: 14:18 Constitutional: This is a well developed, well nourished patient who is awake, alert, kb and in no acute distress. Head/Face: Normocephalic, atraumatic. Chest/axilla: Normal chest wall appearance and motion. Nontender with no deformity. No lesions are appreciated. Cardiovascular: Regular rate and rhythm with a normal S1 and S2. No gallops, murmurs, or rubs. Normal PMI, no JVD. No pulse deficits. Respiratory: Lungs have equal breath sounds bilaterally, clear to auscultation and percussion. No rales, rhonchi or wheezes noted. No increased work of breathing, no retractions or nasal flaring. Abdomen/GI: Soft, non-tender, with normal bowel sounds. No distension or tympany. No guarding or rebound. No evidence of tenderness throughout. MS/ Extremity: Pulses equal, no cyanosis. Neurovascular intact. Full, normal range of motion. Neuro: Awake and alert, GCS 15, oriented to person, place, time, and situation. Cranial nerves II-XII grossly intact. Motor strength 5/5 in all extremities. Sensory grossly intact. Cerebellar exam normal. Normal gait. 14:18 Skin: consistent with contact dermatitis, and is diffusely located. Vital Signs: 13:00 BP 134 / 82; Pulse 87; Resp 16; Temp 97.9; Pulse Ox 100% on R/A; Weight 90.72 kg; ll1 Height 5 ft. 3 in. (160.02 cm); Pain 3/10; 13:00 Body Mass Index 35.43 (90.72 kg, 160.02 cm) ll1 MDM: 14:10 Patient medically screened. kb 14:17 Data reviewed: vital signs, nurses notes. Data interpreted: Pulse oximetry: on room air kb is 100 %. Interpretation: normal. Counseling: I had a detailed discussion with the patient and/or guardian regarding: the historical points, exam findings, and any diagnostic results supporting the discharge/admit diagnosis, the need for outpatient follow up, a family practitioner, to return to the emergency department if symptoms worsen or persist or if there are any questions or concerns that arise at home. Administered Medications: 14:30 Drug: Pepcid 20 mg Route: PO; hb 14:33 Follow up: Response: Medication administered at discharge. hb 14:33 Drug: predniSONE 40 mg Route: PO; hb 14:33 Follow up: Response: Medication administered at discharge. hb Disposition: 18:46 Co-signature as Attending Physician, Aaron Zazueta MD I agree with the assessment and kdr plan of care. Disposition: 07/25/19 14:20 Discharged to Home. Impression: Allergic contact dermatitis. - Condition is Stable. - Discharge Instructions: Contact Dermatitis, [id number]. - Prescriptions for Pepcid 20 mg Oral Tablet - take 1 tablet by ORAL route every 12 hours for 5 days; 10 tablet. Prednisone 20 mg Oral Tablet - take 1 tablet by ORAL route once daily for 5 days; 5 tablet. - Work release form, Medication Reconciliation Form, Thank You Letter, Antibiotic Education, Prescription Opioid Use form. - Follow up: Emergency Department; When: As needed; Reason: Worsening of condition. Follow up: Private Physician; When: 2 - 3 days; Reason: Recheck today's complaints, Continuance of care, Re-evaluation by your physician. Signatures: Dee Hayes, SECURITIES DEALER-C SECURITIES DEALER-CkAaron Varela MD MD [facility] Stacie Oneill RN RN Madison Kumar RN RN ll1 Corrections: (The following items were deleted from the chart) 14:34 14:20 07/25/2019 14:20 Discharged to Home. Impression: Allergic contact dermatitis. hb Condition is Stable. Forms are Medication Reconciliation Form, Thank You Letter, Antibiotic Education, Prescription Opioid Use. Follow up: Emergency Department; When: As needed; Reason: Worsening of condition. Follow up: Private Physician; When: 2 - 3 days; Reason: Recheck today's complaints, Continuance of care, Re-evaluation by your physician. kb
[2019-07-25] MEDS ORDERED: FAMOTIDINE 20 MG TAB ONE (14:38)
[2019-07-25] MEDS ORDERED: predniSONE 20 MG TAB ONE (14:38)
[2019-07-25 14:44] VITALS: BP 134/82; TEMP 97.9; O2SAT 100
== END 2019-07-25 14:34 | disposition home or self-care (01) ==
LOC: ER 12:48
DX: L23.9 Allergic contact dermatitis, unspecified cause (principal)
CPT/HCPCS: 99282; J7512

== ENCOUNTER 2022-11-29 22:41 | Emergency (ER) | payer SELFPAY ==
--- OUTSIDE RECORDS SUMMARY | 2022-11-29 22:51 | XMS REPORT | Continuity of Care Document ---
:1990 Author Organization [facility] t Address [address] [place] [address] Care Team Providers Name Role Phone Pcp, Patient Does Not Have A Primary Care Physician [phone] 00-0000 EDDA KERR Attending Clinician Unavailable Edda Alejandro Attending Clinician Katja West RN Attending Clinician Unavailable Lab, Ang - Db Attending Clinician Unavailable JANNETH CONTRERAS Attending Clinician Unavailable AGUSTINA SAWYER Attending Clinician Unavailable SOUMYA JOHNSON Attending Clinician Unavailable Only, Ang Db Test Attending Clinician Unavailable Unknown, Attending Attending Clinician Unavailable ZULEYMA GALLARDO Attending Clinician Unavailable Zuleyma Gallardo DO Attending Clinician Carla Pollard Attending Clinician CARLA LEE Attending Clinician Unavailable Delfin Dumont RN Attending Clinician Unavailable MACK RAMOS Attending Clinician Unavailable Mack Ramos PA-C Attending Clinician Janneth Contreras MD Attending Clinician Mack Carney RN Attending Clinician Unavailable Tu Rock RPH Attending Clinician Unavailable BRENTON GRAHAM Attending Clinician Unavailable Brenton Graham DO Attending Clinician JACI POLLARD Attending Clinician Unavailable Jaci Vivar Attending Clinician Doctor Unassigned, [place] Attending Clinician Unavailable STACIE LOUIS Attending Clinician Unavailable Laura ANPStacie Attending Clinician [phone] Vaccine, Ang Db Cbc Fam Attending Clinician Unavailable Roma WHCNP David C Attending Clinician [phone] DAVID BRANDON Attending Clinician Unavailable JESSE HUGHES Attending Clinician Unavailable Gavi Barker MD Attending Clinician Bhupinder Gonzáles DO Attending Clinician Paulina SHORT, Mirta Velasco Attending Clinician MIRTA GALLARDO Attending Clinician Unavailable Saul SHORT, Jesse Márquez Attending Clinician JANNETH CONTRERAS Admitting Clinician Unavailable Janneth Contreras MD Admitting Clinician BRENTON GRAHAM Admitting Clinician Unavailable AGUSTINA SAWYER Admitting Clinician Unavailable Payers Payer Name Policy Type Policy Number Effective Date Expiration Date S ource BC OF [employer] [id number] 2022 EMPLOYEE PLAN 00:00:00 Problems Condition Condition Condition Status Onset Resolution Last Treating Co mments Source Name Details Category Date Date Treatment Clinician Date Anxiety Anxiety Disease Active 2022-02 Univers 0-17 ity of 00:00: [place] [address] Medical Branch Vitamin D Vitamin D Disease Active 2022-02 Uni vers deficiency deficiency 0-17 it y of 00:00: [place] [address] Medical Branch Eczema, Eczema, Disease Active 2022-02 Univers unspecifie unspecifie 0-17 it y of d type d type 00:00: [place] [facility] Attention Attention Disease Active Uni vers deficit deficit 9-19 ity of hyperactiv hyperactiv [place] it[place] 00 Medical disorder disorder Branch (ADHD), (ADHD), unspecifie unspecifie d ADHD d ADHD type type Gallstones Gallstones Disease Active Overview : Univers 7-05 Formattin ity of 00:00: g of this [place] note Medical might be Branch different from the original. Added automatic ally from request for surgery [id number] Biliary Biliary Disease Active Overview: Univ ers colic colic 08-17 Formattin ity of 00:00: g of this [place] note Medical might be Branch different from the original. Added automatic ally from request for surgery [id number] Fatigue Fatigue Disease Active Univers 1-25 ity of 00:00: [place] [facility] Skin tag Skin tag Disease Active Unive rs 10-16 ity of 00:00: [place] [facility] Encounter Encounter Disease Active Uni vers for for 10-16 it[place] of assessment assessment [place] of STD of STD 00 Medical exposure exposure Branch Contracept Contracept Disease Active U nivers yonathan yonathan 8 ity of management management [place]: [place] 00 [place] Class 2 Class 2 Disease Active Univers obesity obesity 09-24 it[place] of with body with body [place] mass index mass index 00 Me dical (BMI) of (BMI) of Branch 35.0 to 35.0 to 35.9 in 35.9 in adult, adult, unspecifie unspecifie d obesity d obesity type, type, unspecifie unspecifie d whether d whether serious serious comorbidit comorbidit y present y present Encounter Encounter Disease Active Uni vers for for 812 ity of surveillan surveillan [place] ce of ce of 00 Medical contracept contracept Br anch yonathan pills yonathan pills Elevated Elevated Disease Active Unive rs blood-pres blood-pres 08-31 it y of sure sure 00:00: [place] reading reading 00 Medical without without Branch diagnosis diagnosis of of hypertensi hypertensi on on Candidiasi Candidiasi Disease Active U nivers s of skin s of skin 08-31 ity of 00:00: [place] [address] Medical Branch Well woman Well woman Disease Active U nivers exam (no exam (no 4-17 ity of gynecologi gynecologi 00:[place]: [place] leena exam[place] leena exam) 00 [facility] Branch Intramural Intramural Disease Active Overview : Univers leiomyoma leiomyoma 08-20 Formattin i ty of of uterus of uterus 00:00: [place] of this [place] 00 note Medical might be Branch different from the original. To see M for evaluatio n. BMI BMI Disease Active Overview: [facility] s 35.0-35.9, 35.0-35.9, -17 Formattin ity of adult adult 00:00: g of this [place] 00 note Medical might be Branch different from the original. ICD10 Diagnosis Term Ham Doctor Utility Allergies, Adverse Reactions, Alerts Allergy Allergy Status Severity Reaction(s) Onset Inactive Treating Comm ents Source Name Type Date Date Clinician NO KNOWN Drug Active Univers ALLERGIE Class ity of S [facility] Social History Social Habit Start Date Stop Date Quantity Comments Source Gender identity Universit y of [facility] intake 2022-11-29 2022-11-29 Ex-drinker [facility] 00:00:00 00:00:00 (finding) [facility] History of Social 2022-09-09 2022-09-09 Univers ity of function 00:00:00 00:00:00 [facility] Exposure to 2022-08-03 2022-08-13 Not sure [facility] SARS-CoV-2 (event) 00:00:00 19:15:00 [facility] Tobacco use and 2022-06-06 2022-06-06 Smokeless Universit y of exposure 00:00:00 00:00:00 tobacco non-user [facility] Alcohol Comment 2017-05-30 2017-05-30 social Universit y of 00:00:00 00:00:00 [facility] Sex Ass[birth year] Universit y of 00:00:00 00:00:00 [facility] Smoking Status Start Date Stop Date Source Never smoked tobacco [facility] Medications Ordered Filled Start Stop Current Ordering Indication Dosage Frequency Signature Comments Components Source Medication Medication Date Date Medication? Clinician (SIG) Name Name buPROPion 2022-02 Yes [id number] 150mg Take 1 Univers SR 0-17 tablet by ity of (WELLBUTRIN 00:00: mouth in [place] SR) 150 mg 00 the Medical SR tablet morning Branch and 1 tablet in the evening. ergocalcife 2022-02 Yes [id number] Take 1 Univers rol, 0-17 capsule by ity of vitamin d2, 00:00: mouth [place] 1,250 mcg 00 weekly. Medical (50,000 Branch unit) capsule triamcinolo 2022-02 Yes [id number] Apply to Univers ne 0-17 area(s) 2 ity of acetonide 00:00: (two) [place] 0.1 % 00 times Medical ointment daily. Branch buPROPion 2022-02 Yes [id number] 150mg Take 1 Univers SR 0-17 tablet by ity of (WELLBUTRIN 00:00: mouth in [place] SR) 150 mg 00 the Medical SR tablet morning Branch and 1 tablet in the evening. ergocalcife 2022-02 Yes [id number] Take 1 Univers rol, 0-17 capsule by ity of vitamin d2, 00:00: mouth [place] 1,250 mcg 00 weekly. Medical (50,000 Branch unit) capsule triamcinolo 2022-02 Yes [id number] Apply to Univers ne 0-17 area(s) 2 ity of acetonide 00:00: (two) [place] 0.1 % 00 times Medical ointment daily. Branch buPROPion 2022-02 Yes [id number] 150mg Take 1 Univers SR 0-17 tablet by ity of (WELLBUTRIN 00:00: mouth in [place] SR) 150 mg 00 the Medical SR tablet morning Branch and 1 tablet in the evening. ergocalcife 2022-02 Yes [id number] Take 1 Univers rol, 0-17 capsule by ity of vitamin d2, 00:00: mouth [place] 1,250 mcg 00 weekly. Medical (50,000 Branch unit) capsule triamcinolo 2022-02 Yes [id number] Apply to Univers ne 0-17 area(s) 2 ity of acetonide 00:00: (two) [place] 0.1 % 00 times Medical ointment daily. Branch buPROPion Yes [id number] 150mg Take 1 U nivers SR 9-19 tablet by ity of (WELLBUTRIN 00:00: mouth in [place] SR) 150 mg 00 the Medical SR tablet morning Branch and 1 tablet in the evening. Start 1 tab daily for 3 days, then BID buPROPion 0 Yes [id number] 150mg Take 1 U nivers SR 9-19 tablet by ity of (WELLBUTRIN 00:00: mouth in [place] SR) 150 mg 00 the Medical SR tablet morning Branch and 1 tablet in the evening. Start 1 tab daily for 3 days, then BID buPROPion 3-0 Yes [id number] 150mg Take 1 U nivers SR 9-19 tablet by ity of (WELLBUTRIN 00:00: mouth in [place] SR) 150 mg 00 the Medical SR tablet morning Branch and 1 tablet in the evening. Start 1 tab daily for 3 days, then BID buPROPion 3-0 Yes [id number] 150mg Take 1 U nivers SR 9-19 tablet by ity of (WELLBUTRIN 00:00: mouth in [place] SR) 150 mg 00 the Medical SR tablet morning Branch and 1 tablet in the evening. Start 1 tab daily for 3 days, then BID buPROPion 2022-0 3- No [id number] 150mg Take 1 Univers SR 9-19 10-17 tablet by ity of (WELLBUTRIN 00:00: 00:00 [place] SR) 150 mg 00 :00 the Medical SR tablet morning Branch and 1 tablet in the evening. Start 1 tab daily for 3 days, then BID buPROPion 2022-0 2022- No [id number] 150mg Take 1 Univers SR 9-19 10-17 tablet by ity of (WELLBUTRIN 00:00: 00:00 [place] SR) 150 mg 00 :00 the Medical SR tablet morning Branch and 1 tablet in the evening. Start 1 tab daily for 3 days, then BID nirmatrelvi 2022-0 Yes [id number] 3{tbl} Take 3 Univers r-ritonavir 9-02 tablets by it y of (PAXLOVID) 00:00: mouth in [place] as 300 mg (150 00 the Medical mg x 2)-100 morning Branc h mg tablet and 3 tablets in the evening. nirmatrelvi 2022-0 Yes [id number] 3{tbl} Take 3 Univers r-ritonavir 9-02 tablets by it y of (PAXLOVID) 00:00: mouth in [place] 300 mg (150 00 the Medical mg x 2)-100 morning Branc h mg tablet and 3 tablets in the evening. nirmatrelvi 2022-0 Yes [id number] 3{tbl} Take 3 Univers r-ritonavir 9-02 tablets by it y of (PAXLOVID) 00:00: mouth in [facility] as 300 mg (150 00 the Medical mg x 2)-100 morning Branc h mg tablet and 3 tablets in the evening. nirmatrelvi 2022- No [id number] 3{tbl} Take 3 Univers r-ritonavir 10-15 tablets by i ty of (PAXLOVID) 00:00: 00:00 mouth in [place] 300 mg (150 00 :00 the Medical mg x 2)-100 morning Branc h mg tablet and 3 tablets in the evening. nirmatrelvi 2022- No [id number] 3{tbl} Take 3 Univers r-ritonavir -11-01 tablets by i ty of (PAXLOVID) 00:00: 00:00 mouth in [place] 300 mg (150 00 :00 the Medical mg x 2)-100 morning Branc h mg tablet and 3 tablets in the evening. nirmatrelvi 2022- No [id number] 3{tbl} Take 3 Univers r-ritonavir 10-15 tablets by i ty of (PAXLOVID) 00:00: 00:00 mouth in [place] 300 mg (150 00 :00 the Medical mg x 2)-100 morning Branc h mg tablet and 3 tablets in the evening. cetirizine 2022-0 Yes [id number] 10mg Take 1 U nivers 10 mg 8-31 tablet by ity of tablet 00:00: mouth in [place] the Medical morning. Branch fluticasone 2022-0 Yes [id number] 2{spray Use 2 Univers propionate 8-31 } Sprays in ity of 50 00:00: each [place] mcg/actuati 00 nostril in Ma dicin on nasal the Branch spray morning. azelastine 2022-0 Yes [id number] 1{spray Use 1 Univers 137 mcg 8-31 } [place] in ity of (0.1 %) 00:00: each [place] nasal spray 00 nostril in Ma dical the Branch morning and 1 [place] in the evening. Use in each nostril as directed cetirizine 2022-0 Yes [id number] 10mg Take 1 U nivers 10 mg 8-31 tablet by ity of tablet 00:00: mouth in [place] 00 the Medical morning. Branch fluticasone 3-0 Yes [id number] 2{spray Use 2 Univers propionate 8-31 } Sprays in ity of 50 00:00: each [place] mcg/actuati 00 nostril in Me dical on nasal the Branch spray morning. azelastine 2022-0 Yes [id number] 1{spray Use 1 Univers 137 mcg 8-31 } [place] in ity of (0.1 %) 00:00: each [place] nasal spray 00 nostril in Ma dical the Branch morning and 1 [place] in the evening. Use in each nostril as directed cetirizine 3-0 Yes [id number] 10mg Take 1 U nivers 10 mg 8-31 tablet by ity of tablet 00:00: mouth in [place] the Medical morning. Branch fluticasone 2022-0 Yes [id number] 2{spray Use 2 Univers propionate 8-31 } Sprays in ity of 50 00:00: each [place] mcg/actuati 00 nostril in Ma dical on nasal the Branch spray morning. azelastine 2022-0 Yes [id number] 1{spray Use 1 Univers 137 mcg 8-31 } [place] in ity of (0.1 %) 00:00: each [place] nasal spray 00 nostril in Ma dical the Branch morning and 1 [place] in the evening. Use in each nostril as directed cetirizine 3-0 Yes [id number] 10mg Take 1 U nivers 10 mg 8-31 tablet by ity of tablet 00:00: mouth in [place] the Medical morning. Branch fluticasone 3-0 Yes [id number] 2{spray Use 2 Univers propionate 8-31 } Sprays in ity of 50 00:00: each [place] mcg/actuati 00 nostril in Ma dical on nasal the Branch spray morning. azelastine 2023-0 Yes [id number] 1{spray Use 1 Univers 137 mcg 8-31 } [place] in ity of (0.1 %) 00:00: each [place] nasal spray 00 nostril in Me dical the Branch morning and 1 [place] in the evening. Use in each nostril as directed cetirizine 2023-0 Yes [id number] 10mg Take 1 U nivers 10 mg 8-31 tablet by ity of tablet 00:00: mouth in [place] the Medical morning. Branch fluticasone 2023-0 Yes [id number] 2{spray Use 2 Univers propionate 8-31 } Sprays in ity of 50 00:00: each [place] mcg/actuati 00 nostril in Me dical on nasal the Branch spray morning. azelastine 3-0 Yes [id number] 1{spray Use 1 Univers 137 mcg 8-31 } [place] in ity of (0.1 %) 00:00: each [place] nasal spray 00 nostril in Ma dical the Branch morning and 1 [place] in the evening. Use in each nostril as directed cetirizine 3-0 Yes [id number] 10mg Take 1 U nivers 10 mg 8-31 tablet by ity of tablet 00:00: mouth in [place] the Medical morning. Branch fluticasone 2022-0 Yes [id number] 2{spray Use 2 Univers propionate 8-31 } Sprays in ity of 50 00:00: each [place] mcg/actuati 00 nostril in Ma dical on nasal the Branch spray morning. azelastine 2022-0 Yes [id number] 1{spray Use 1 Univers 137 mcg 8-31 } [place] in ity of (0.1 %) 00:00: each [place] nasal spray 00 nostril in Ma dical the Branch morning and 1 [place] in the evening. Use in each nostril as directed cetirizine 3-0 Yes [id number] 10mg Take 1 U nivers 10 mg 8-31 tablet by ity of tablet 00:00: mouth in [place] the Medical morning. Branch fluticasone 3-0 Yes [id number] 2{spray Use 2 Univers propionate 8-31 } Sprays in ity of 50 00:00: each [place] mcg/actuati 00 nostril in Ma dical on nasal the Branch spray morning. azelastine 2023-0 Yes [id number] 1{spray Use 1 Univers 137 mcg 8-31 } [place] in ity of (0.1 %) 00:00: each [place] nasal spray 00 nostril in Me dical the Branch morning and 1 [place] in the evening. Use in each nostril as directed cetirizine 2023-0 Yes [id number] 10mg Take 1 U nivers 10 mg 8-31 tablet by ity of tablet 00:00: mouth in [place] the Medical morning. Branch fluticasone 3-0 Yes [id number] 2{spray Use 2 Univers propionate 8-31 } Sprays in ity of 50 00:00: each [place] mcg/actuati 00 nostril in Me dical on nasal the Branch spray morning. azelastine 2022-0 Yes [id number] 1{spray Use 1 Univers 137 mcg 8-31 } [place] in ity of (0.1 %) 00:00: each [place] nasal spray 00 nostril in Ma dical the Branch morning and 1 [place] in the evening. Use in each nostril as directed cetirizine 3-0 Yes [id number] 10mg Take 1 U nivers 10 mg 8-31 tablet by ity of tablet 00:00: mouth in [place] the Medical morning. Branch fluticasone 2022-0 Yes [id number] 2{spray Use 2 Univers propionate 8-31 } Sprays in ity of 50 00:00: each [place] mcg/actuati 00 nostril in Ma dical on nasal the Branch spray morning. azelastine 2022-0 Yes [id number] 1{spray Use 1 Univers 137 mcg 8-31 } [place] in ity of (0.1 %) 00:00: each [place] nasal spray 00 nostril in Ma dical the Branch morning and 1 [place] in the evening. Use in each nostril as directed cetirizine 2022-0 Yes [id number] 10mg Take 1 U nivers 10 mg 8-31 tablet by ity of tablet 00:00: mouth in [place] the Medical morning. Branch fluticasone 2022-0 Yes [id number] 2{spray Use 2 Univers propionate 8-31 } Sprays in ity of 50 00:00: each [place] mcg/actuati 00 nostril in Ma dical on nasal the Branch spray morning. azelastine 2023-0 Yes [id number] 1{spray Use 1 Univers 137 mcg 8-31 } [place] in ity of (0.1 %) 00:00: each [place] nasal spray 00 nostril in Me dical the Branch morning and 1 [place] in the evening. Use in each nostril as directed cetirizine 3-0 Yes [id number] 10mg Take 1 U nivers 10 mg 8-31 tablet by ity of tablet 00:00: mouth in [place] 00 the Medical morning. Branch fluticasone 3-0 Yes [id number] 2{spray Use 2 Univers propionate 8-31 } Sprays in ity of 50 00:00: each [place] mcg/actuati 00 nostril in Ma dical on nasal the Branch spray morning. azelastine 2022-0 Yes [id number] 1{spray Use 1 Univers 137 mcg 8-31 } [place] in ity of (0.1 %) 00:00: each [place] nasal spray 00 nostril in Ma dical the Branch morning and 1 [place] in the evening. Use in each nostril as directed cetirizine 2022-0 Yes [id number] 10mg Take 1 U nivers 10 mg 8-31 tablet by ity of tablet 00:00: mouth in [place] the Medical morning. Branch fluticasone 2022-0 Yes [id number] 2{spray Use 2 Univers propionate 8-31 } Sprays in ity of 50 00:00: each [place] mcg/actuati 00 nostril in Ma dical on nasal the Branch spray morning. azelastine 2022-0 Yes [id number] 1{spray Use 1 Univers 137 mcg 8-31 } [place] in ity of (0.1 %) 00:00: each [place] nasal spray 00 nostril in Ma dical the Branch morning and 1 [place] in the evening. Use in each nostril as directed cetirizine 2022-0 Yes [id number] 10mg Take 1 U nivers 10 mg 8-31 tablet by ity of tablet 00:00: mouth in [place] the Medical morning. Branch fluticasone 2022-0 Yes [id number] 2{spray Use 2 Univers propionate 8-31 } Sprays in ity of 50 00:00: each [place] mcg/actuati 00 nostril in Ma dical on nasal the Branch spray morning. azelastine 3-0 Yes [id number] 1{spray Use 1 Univers 137 mcg 8-31 } [place] in ity of (0.1 %) 00:00: each [place] nasal spray 00 nostril in Ma dical the Branch morning and 1 [place] in the evening. Use in each nostril as directed cetirizine 3-0 Yes [id number] 10mg Take 1 U nivers 10 mg 8-31 tablet by ity of tablet 00:00: mouth in [place] 00 the Medical morning. Branch fluticasone 3-0 Yes [id number] 2{spray Use 2 Univers propionate 8-31 } Sprays in ity of 50 00:00: each [place] mcg/actuati 00 nostril in Ma dical on nasal the Branch spray morning. azelastine 3-0 Yes [id number] 1{spray Use 1 Univers 137 mcg 8-31 } [place] in ity of (0.1 %) 00:00: each [place] nasal spray 00 nostril in Me dical the Branch morning and 1 [place] in the evening. Use in each nostril as directed ubrogepant 2023-0 Yes [id number] 100mg Take 1 Univers 100 mg Tab 8-14 tablet by ity of 00:00: mouth as [place] 00 needed for Medical Other Branch (Headache) for up to 64 doses. If symptoms persist or return, may repeat dose after 2 hours. Maximum: 200 mg per 24 hours ubrogepant 2023-0 Yes [id number] 100mg Take 1 Univers 100 mg Tab 8-14 tablet by ity of 00:00: mouth as [place] 00 needed for Medical Other Branch (Headache) for up to 64 doses. If symptoms persist or return, may repeat dose after 2 hours. Maximum: 200 mg per 24 hours ubrogepant 2023-0 Yes [id number] 100mg Take 1 Univers 100 mg Tab 8-14 tablet by ity of 00:00: mouth as [place] 00 needed for Medical Other Branch (Headache) for up to 64 doses. If symptoms persist or return, may repeat dose after 2 hours. Maximum: 200 mg per 24 hours ubrogepant 2023-0 Yes [id number] 100mg Take 1 Univers 100 mg Tab 8-14 tablet by ity of 00:00: mouth as [place] 00 needed for Medical Other Branch (Headache) for up to 64 doses. If symptoms persist or return, may repeat dose after 2 hours. Maximum: 200 mg per 24 hours ubrogepant 2023-0 Yes [id number] 100mg Take 1 Univers 100 mg Tab 8-14 tablet by ity of 00:00: mouth as [place] 00 needed for Medical Other Branch (Headache) for up to 64 doses. If symptoms persist or return, may repeat dose after 2 hours. Maximum: 200 mg per 24 hours ubrogepant 2023-0 Yes [id number] 100mg Take 1 Univers 100 mg Tab 8-14 tablet by ity of 00:00: mouth as [place] 00 needed for Medical Other Branch (Headache) for up to 64 doses. If symptoms persist or return, may repeat dose after 2 hours. Maximum: 200 mg per 24 hours ubrogepant 2023-0 Yes [id number] 100mg Take 1 Univers 100 mg Tab 8-14 tablet by ity of 00:00: mouth as [place] 00 needed for Medical Other Branch (Headache) for up to 64 doses. If symptoms persist or return, may repeat dose after 2 hours. Maximum: 200 mg per 24 hours ubrogepant 2023-0 Yes [id number] 100mg Take 1 Univers 100 mg Tab 8-14 tablet by ity of 00:00: mouth as [place] 00 needed for Medical Other Branch (Headache) for up to 64 doses. If symptoms persist or return, may repeat dose after 2 hours. Maximum: 200 mg per 24 hours ubrogepant 2023-0 Yes [id number] 100mg Take 1 Univers 100 mg Tab 8-14 tablet by ity of 00:00: mouth as [place] 00 needed for Medical Other Branch (Headache) for up to 64 doses. If symptoms persist or return, may repeat dose after 2 hours. Maximum: 200 mg per 24 hours ubrogepant 2023-0 Yes [id number] 100mg Take 1 Univers 100 mg Tab 8-14 tablet by ity of 00:00: mouth as [place] 00 needed for Medical Other Branch (Headache) for up to 64 doses. If symptoms persist or return, may repeat dose after 2 hours. Maximum: 200 mg per 24 hours ubrogepant 2023-0 2023- No [id number] 100mg Take 1 Univers 100 mg Tab 8-14 -19 tablet by ity of 00:00: 00:00 mouth as [place] 00 :00 needed for Medical Other Branch (Headache) for up to 64 doses. If symptoms persist or return, may repeat dose after 2 hours. Maximum: 200 mg per 24 hours ubrogepant 2023-0 2023- No [id number] 100mg Take 1 Univers 100 mg Tab 8-14 -19 tablet by ity of 00:00: 00:00 mouth as [place] 00 :00 needed for Medical Other Branch (Headache) for up to 64 doses. If symptoms persist or return, may repeat dose after 2 hours. Maximum: 200 mg per 24 hours ubrogepant 2023-0 2023- No [id number] 100mg Take 1 Univers 100 mg Tab 09-26 tablet by ity of 00:00: 00:00 mouth as [place] 00 :00 needed for Medical Other Branch (Headache) for up to 64 doses. If symptoms persist or return, may repeat dose after 2 hours. Maximum: 200 mg per 24 hours fluconazole 2022-2022- Yes 200mg Take 1 Un heath 200 mg 09-14 tablet by ity of tablet 00:00: 04:59 mouth [place] 00 :00 now for 1 Medical dose. Branch fluconazole 2022-2022- Yes [id number] 200mg Take 1 Univers (DIFLUCAN) 09-13 tablet by ity of 200 mg 00:00: 04:59 mouth [place] tablet 00 :00 now for 1 Medical dose. Branch fluconazole 2022-2022- No [id number] 200mg Take 1 Univers (DIFLUCAN) 09-13 tablet by ity of 200 mg 00:00: 04:59 mouth [place] tablet 00 :00 now for 1 Medical dose. Branch lactated Yes 1000mL at 100 Unive rs ringers IV 7-28 mL/hr, ity of infusion 18:00: 1,000 mL, [place] 1,000 mL 00 IV Medical Infusion, Branch CONTINUOUS , Starting on Mon09/09/22 at 1300, Until Discontinu ed, Routine, PACU lactated 2022- No 1000mL at 100 Univ ers ringers IV 09-09 07-28 mL/hr, ity of infusion 18:00: 21:57 1,000 mL, [place] 1,000 mL 00 :35 IV Medical Infusion, Branch CONTINUOUS , Starting on Mon09/09/22 at 1300, Until Mon09/09/22 at 1657, Routine, PACU HYDROmorphO 0 Yes .2mg 0.2 mg, Uni vers ne 09-09 Slow IV ity of (DILAUDID) 17:46: Push, [place] injection 52 Q5MIN PRN, Medi leena 0.2 mg 10 doses, Branch Starting on Mon09/09/22 at 1246, Until Discontinu ed, Routine, Pain (scale 7-10), PACU
Us e approved by (Faculty): PACU USE -ANESTHESI A SERVICE-HY DROMORPHON E INJECTIONS FENTanyl PF Yes 25ug 25 mcg, Uni vers (SUBLIMAZE 09-09 Slow IV ity of (PF)) 17:46: Push, [place] injection 52 Q5MIN PRN, Medi leena 25 mcg 4 doses, Branch Starting on Mon09/09/22 at 1246, Until Discontinu ed, Routine, Pain (scale 4-6), PACU ondansetron 2022- No 4mg 4 mg, Slow [facility] (ZOFRAN 09-09 IV Push, ity of (PF)) 17:46: 17:51 PRN, 1 [place] injection 4 52 :00 dose, Medical mg Starting Branch on Mon09/09/22 at 1246, Until Mon09/09/22 at 1251, Routine, Nausea and Vomiting (N/V), PACU HYDROmorphO 2022- No .2mg 0.2 mg, Un heath ne 09-09 Slow IV ity of (DILAUDID) 17:46: 21:57 Push, [place] injection 52 :35 Q5MIN PRN, Medi leena 0.2 mg 10 doses, Branch Starting on Mon09/09/22 at 1246, Until Mon09/09/22 at 1657, Routine, Pain (scale 7-10), PACU
Us e approved by (Faculty): PACU USE -ANESTHESI A SERVICE-HY DROMORPHON E INJECTIONS FENTanyl PF 2022- No 25ug 25 mcg, Un heath (SUBLIMAZE 09-09 Slow IV ity o f (PF)) 17:46: 21:57 Push, [place] injection 52 :35 Q5MIN PRN, Medi leena 25 mcg 4 doses, Branch Starting on Mon09/09/22 at 1246, Until Mon09/09/22 at 1657, Routine, Pain (scale 4-6), PACU ondansetron 2022- No 4mg 4 mg, Slow [facility] (ZOFRAN 09-09 IV Push, ity of (PF)) 17:46: 17:51 PRN, 1 [place] injection 4 52 :00 dose, Medical mg Starting Branch on Mon09/09/22 at 1246, Until Mon09/09/22 at 1251, Routine, Nausea and Vomiting (N/V), PACU iohexoL 2022- No PRN, Univers (OMNIPAQUE 09-09 Starting ity of 300-50 mL)) 16:33: 17:33 on Mon [place] injection 00 :19 09/09/22 at [facility] leena 1133, Branch Until Mon09/09/22 at 1233, Routine, Intra-op sodium 2022- No PRN, Univers chloride 09-09 Starting ity of 0.9 % 15:48: 17:33 on Mon [place] irrigation 00 :19 09/09/22 at [facility] ical solution 1048, Branch Until Mon09/09/22 at 1233, Intra-op bupivacaine 2022- No PRN, Unive rs (preserv 09-09 Starting ity of free) 15:47: 17:33 on Mon (SENSORCAIN 00 :19 09/09/22 at [facility]) 0.25 1047, Branch % (2.5 Intra-op mg/mL) 30 mL, lidocaine-e pinephrine (XYLOCAINE WITH EPINEPHRINE ) 1 %-1:100,000 30 mL lactated 2022- No 1000mL at 42 [facility] rs ringers IV 09-09 mL/hr, ity of infusion 14:45: 14:56 1,000 mL, [place] 1,000 mL 00 :00 IV Medical Infusion, Branch ONCE, 1 dose, On Mon09/09/22 at 0945, Routine, DSU Pre-op lactated 0 2022- No 1000mL at 42 [facility] rs ringers IV 09-0928 mL/hr, ity of infusion 14:45: 14:56 1,000 mL, [place] 1,000 mL 00 :00 IV Medical Infusion, Branch ONCE, 1 dose, On Mon09/09/22 at 0945, Routine, DSU Pre-op HYDROcodone Yes 4647 1{tbl} Take 1 Un heath -acetaminop 09-09 tablet by ity of hen (NORCO) 00:00: mouth [place] 5-325 mg 00 every 6 Medical tablet (six) Branch hours as needed for Pain (scale 7-10) for up to 15 doses. Indication s: acute pain HYDROcodone 2023-0 Yes 4647 1{tbl} Take 1 Un heath -acetaminop 7-28 tablet by ity of hen (NORCO) 00:00: mouth [place] 5-325 mg 00 every 6 Medical tablet (six) Branch hours as needed for Pain (scale 7-10) for up to 15 doses. Indication s: acute pain HYDROcodone 2023-0 Yes 4647 1{tbl} Take 1 Un heath -acetaminop 7-28 tablet by ity of hen (NORCO) 00:00: mouth [place] 5-325 mg 00 every 6 Medical tablet (six) Branch hours as needed for Pain (scale 7-10) for up to 15 doses. Indication s: acute pain HYDROcodone 2023-0 Yes 4647 1{tbl} Take 1 Un heath -acetaminop 7-28 tablet by ity of hen (NORCO) 00:00: mouth [place] 5-325 mg 00 every 6 Medical tablet (six) Branch hours as needed for Pain (scale 7-10) for up to 15 doses. Indication s: acute pain HYDROcodone 2023-0 Yes 4647 1{tbl} Take 1 Un heath -acetaminop 7-28 tablet by ity of hen (NORCO) 00:00: mouth [place] 5-325 mg 00 every 6 Medical tablet (six) Branch hours as needed for Pain (scale 7-10) for up to 15 doses. Indication s: acute pain HYDROcodone 2023-0 Yes 4647 1{tbl} Take 1 Un heath -acetaminop 7-28 tablet by ity of hen (NORCO) 00:00: mouth [place] 5-325 mg 00 every 6 Medical tablet (six) Branch hours as needed for Pain (scale 7-10) for up to 15 doses. Indication s: acute pain HYDROcodone 2023-0 Yes 4647 1{tbl} Take 1 Un heath -acetaminop 7-28 tablet by ity of hen (NORCO) 00:00: mouth [place] 5-325 mg 00 every 6 Medical tablet (six) Branch hours as needed for Pain (scale 7-10) for up to 15 doses. Indication s: acute pain HYDROcodone 2023-0 Yes 4647 1{tbl} Take 1 Un heath -acetaminop 7-28 tablet by ity of hen (NORCO) 00:00: mouth [place] 5-325 mg 00 every 6 Medical tablet (six) Branch hours as needed for Pain (scale 7-10) for up to 15 doses. Indication s: acute pain HYDROcodone 2023-0 Yes 4647 1{tbl} Take 1 Un heath -acetaminop 7-28 tablet by ity of hen (NORCO) 00:00: mouth [place] 5-325 mg 00 every 6 Medical tablet (six) Branch hours as needed for Pain (scale 7-10) for up to 15 doses. Indication s: acute pain HYDROcodone 2023-0 Yes 4647 1{tbl} Take 1 Un heath -acetaminop 7-28 tablet by ity of hen (NORCO) 00:00: mouth [place] 5-325 mg 00 every 6 Medical tablet (six) Branch hours as needed for Pain (scale 7-10) for up to 15 doses. Indication s: acute pain HYDROcodone 2023-0 Yes 4647 1{tbl} Take 1 Un heath -acetaminop 7-28 tablet by ity of hen (NORCO) 00:00: mouth [place] 5-325 mg 00 every 6 Medical tablet (six) Branch hours as needed for Pain (scale 7-10) for up to 15 doses. Indication s: acute pain HYDROcodone 2023-0 Yes 4647 1{tbl} Take 1 Un heath -acetaminop 7-28 tablet by ity of hen (NORCO) 00:00: mouth [place] 5-325 mg 00 every 6 Medical tablet (six) Branch hours as needed for Pain (scale 7-10) for up to 15 doses. Indication s: acute pain HYDROcodone 2023-0 2023- No 4647 1{tbl} Take 1 U nivers -acetaminop 7-28 08-11 tablet by it y of hen (NORCO) 00:00: 00:00 mouth [place] 5-325 mg 00 :00 every 6 Medical tablet (six) Branch hours as needed for Pain (scale 7-10) for up to 15 doses. Indication s: acute pain HYDROcodone 2023-0 2023- No 4647 1{tbl} Take 1 U nivers -acetaminop 7-28 08-11 tablet by it y of hen (NORCO) 00:00: 00:00 mouth [place] 5-325 mg 00 :00 every 6 Medical tablet (six) Branch hours as needed for Pain (scale 7-10) for up to 15 doses. Indication s: acute pain acetaminoph 2023-0 2022- Yes [id number] 500mg Take 1 [facility] en 500 mg 7-28 08-05 tablet by ity of tablet 00:00: 04:59 mouth [place] 00 :00 every 6 Medical (six) Branch hours for 7 days. acetaminoph 2022-0 2022- Yes [id number] 500mg Take 1 [facility] en 500 mg 7-28 08-05 tablet by ity of tablet 00:00: 04:59 mouth [place] 00 :00 every 6 Medical (six) Branch hours for 7 days. acetaminoph 2022-0 2022- Yes [id number] 500mg Take 1 [facility] en 500 mg 7-28 08-05 tablet by ity of tablet 00:00: 04:59 mouth [place] 00 :00 every 6 Medical (six) Branch hours for 7 days. acetaminoph 2022- Yes [id number] 500mg Take 1 [facility] en 500 mg 7-28 08-05 tablet by ity of tablet 00:00: 04:59 mouth [place] 00 :00 every 6 Medical (six) Branch hours for 7 days. acetaminoph 0 2022- Yes [id number] 500mg Take 1 [facility] en 500 mg 7-28 08-05 tablet by ity of tablet 00:00: 04:59 mouth [place] 00 :00 every 6 Medical (six) Branch hours for 7 days. acetaminoph 2022-0 2022- Yes [id number] 500mg Take 1 [facility] en 500 mg 7-28 08-05 tablet by ity of tablet 00:00: 04:59 mouth [place] 00 :00 every 6 Medical (six) Branch hours for 7 days. acetaminoph 2023-0 2022- Yes [id number] 500mg Take 1 [facility] en 500 mg 7-28 08-05 tablet by ity of tablet 00:00: 04:59 mouth [place] 00 :00 every 6 Medical (six) Branch hours for 7 days. acetaminoph 202-0 2022- Yes [id number] 500mg Take 1 [facility] en 500 mg 7-28 08-05 tablet by ity of tablet 00:00: 04:59 mouth [place] 00 :00 every 6 Medical (six) Branch hours for 7 days. acetaminoph 2022- Yes [id number] 500mg Take 1 [facility] en 500 mg 7- 08-05 tablet by ity of tablet 00:00: 04:59 mouth [place] 00 :00 every 6 Medical (six) Branch hours for 7 days. acetaminoph 2022- Yes [id number] 500mg Take 1 [facility] en 500 mg 7- 08-05 tablet by ity of tablet 00:00: 04:59 mouth [place] 00 :00 every 6 Medical (six) Branch hours for 7 days. acetaminoph 2022- Yes [id number] 500mg Take 1 [facility] en 500 mg 7- 08-05 tablet by ity of tablet 00:00: 04:59 mouth [place] 00 :00 every 6 Medical (six) Branch hours for 7 days. erenumab-ao Yes [id number] 1mL inject 1 [facility] oe (AIMOVIG 7-03 mL under ity of AUTOINJECTO 00:00: the skin [place] R) 70 mg/mL 00 once every Me dical AtIn month. Branch erenumab-ao Yes [id number] 1mL inject 1 [facility] oe (AIMOVIG 7-03 mL under ity of AUTOINJECTO 00:00: the skin [place] R) 70 mg/mL 00 once every Me dical AtIn month. Branch erenumab-ao Yes [id number] 1mL inject 1 [facility] oe (AIMOVIG 7-03 mL under ity of AUTOINJECTO 00:00: the skin [place] R) 70 mg/mL 00 once every Me dical AtIn month. Branch erenumab-ao Yes [id number] 1mL inject 1 [facility] oe (AIMOVIG 7-03 mL under ity of AUTOINJECTO 00:00: the skin [place] R) 70 mg/mL 00 once every Me dical AtIn month. Branch erenumab-ao Yes [id number] 1mL inject 1 [facility] oe (AIMOVIG 7-03 mL under ity of AUTOINJECTO 00:00: the skin [place] R) 70 mg/mL 00 once every Me dical AtIn month. Branch erenumab-ao 2023-0 Yes 1mL inject 1 [facility] oe (AIMOVIG 7-03 mL under ity of AUTOINJECTO 00:00: the skin [place] R) 70 mg/mL 00 once every Me dical AtIn month. [place] erenumab-ao Yes 1mL inject 1 [facility] oe (AIMOVIG 7-03 mL under ity of AUTOINJECTO 00:00: the skin [place] R) 70 mg/mL 00 once every Me dical AtIn month. [place] erenumab-ao Yes 1mL inject 1 [facility] oe (AIMOVIG 7-03 mL under ity of AUTOINJECTO 00:00: the skin [place] R) 70 mg/mL 00 once every Me dical AtIn month. [place] erenumab-ao Yes 1mL inject 1 [facility] oe (AIMOVIG 7-03 mL under ity of AUTOINJECTO 00:00: the skin [place] R) 70 mg/mL 00 once every Me dical AtIn month. [place] erenumab-ao Yes 1mL inject 1 [facility] oe (AIMOVIG 7-03 mL under ity of AUTOINJECTO 00:00: the skin [place] R) 70 mg/mL 00 once every Me dical AtIn month. [place] erenumab-ao Yes 1mL inject 1 [facility] oe (AIMOVIG 7-03 mL under ity of AUTOINJECTO 00:00: the skin [place] R) 70 mg/mL 00 once every Me dical AtIn month. [place] erenumab-ao Yes 1mL inject 1 [facility] oe (AIMOVIG 7-03 mL under ity of AUTOINJECTO 00:00: the skin [place] R) 70 mg/mL 00 once every Me dical AtIn month. [place] erenumab-ao Yes 1mL inject 1 [facility] oe (AIMOVIG 7-03 mL under ity of AUTOINJECTO 00:00: the skin [place] R) 70 mg/mL 00 once every Me dical AtIn month. [place] erenumab-ao Yes 1mL inject 1 [facility] oe (AIMOVIG 7-03 mL under ity of AUTOINJECTO 00:00: the skin [place] R) 70 mg/mL 00 once every Me dical AtIn month. [place] erenumab-ao 0 Yes 1mL inject 1 [facility] oe (AIMOVIG 7-03 mL under ity of AUTOINJECTO 00:00: the skin [place] R) 70 mg/mL 00 once every Me dical AtIn month. [place] erenumab-ao Yes 1mL inject 1 [facility] oe (AIMOVIG 7-03 mL under ity of AUTOINJECTO 00:00: the skin [place] R) 70 mg/mL 00 once every Me dical AtIn month. [place] erenumab-ao Yes 1mL inject 1 [facility] oe (AIMOVIG 7-03 mL under ity of AUTOINJECTO 00:00: the skin [place] R) 70 mg/mL 00 once every Me dical AtIn month. [place] erenumab-ao Yes 1mL inject 1 [facility] oe (AIMOVIG 7-03 mL under ity of AUTOINJECTO 00:00: the skin [place] R) 70 mg/mL 00 once every Me dical AtIn month. [place] erenumab-ao Yes [id number] 1mL inject 1 [facility] oe (AIMOVIG 7-03 mL under ity of AUTOINJECTO 00:00: the skin [place] R) 70 mg/mL 00 once every Me dical AtIn month. [place] erenumab-ao Yes [id number] 1mL inject 1 [facility] oe (AIMOVIG 7-03 mL under ity of AUTOINJECTO 00:00: the skin [place] R) 70 mg/mL 00 once every Me dical AtIn month. [place] erenumab-ao Yes [id number] 1mL inject 1 [facility] oe (AIMOVIG 7-03 mL under ity of AUTOINJECTO 00:00: the skin [place] R) 70 mg/mL 00 once every Me dical AtIn month. [place] erenumab-ao Yes 1mL inject 1 [facility] oe (AIMOVIG 7-03 mL under ity of AUTOINJECTO 00:00: the skin [place] R) 70 mg/mL 00 once every Me dical AtIn month. [place] erenumab-ao 2022-0 Yes [id number] 1mL inject 1 [facility] oe (AIMOVIG 7-03 mL under ity of AUTOINJECTO 00:00: the skin [place] R) 70 mg/mL 00 once every Me dical AtIn month. [place] erenumab-ao Yes 1mL inject 1 [facility] oe (AIMOVIG 7-03 mL under ity of AUTOINJECTO 00:00: the skin [place] R) 70 mg/mL 00 once every Me dical AtIn month. [place] erenumab-ao Yes [id number] 1mL inject 1 [facility] oe (AIMOVIG 7-03 mL under ity of AUTOINJECTO 00:00: the skin [place] R) 70 mg/mL 00 once every Me dical AtIn month. [place] erenumab-ao Yes [id number] 1mL inject 1 [facility] oe (AIMOVIG 7-03 mL under ity of AUTOINJECTO 00:00: the skin [place] R) 70 mg/mL 00 once every Me dical AtIn month. [place] erenumab-ao Yes [id number] 1mL inject 1 [facility] oe (AIMOVIG 7-03 mL under ity of AUTOINJECTO 00:00: the skin [place] R) 70 mg/mL 00 once every Me dical AtIn month. [place] erenumab-ao Yes [id number] 1mL inject 1 [facility] oe (AIMOVIG 7-03 mL under ity of AUTOINJECTO 00:00: the skin [place] R) 70 mg/mL 00 once every Me dical AtIn month. [place] erenumab-ao Yes [id number] 1mL inject 1 [facility] oe (AIMOVIG 7-03 mL under ity of AUTOINJECTO 00:00: the skin [place] R) 70 mg/mL 00 once every Me dical AtIn month. [place] erenumab-ao Yes [id number] 1mL inject 1 [facility] oe (AIMOVIG 7-03 mL under ity of AUTOINJECTO 00:00: the skin [place] R) 70 mg/mL 00 once every Me dical AtIn month. [place] erenumab-ao Yes 1mL inject 1 [facility] oe (AIMOVIG 7-03 mL under ity of AUTOINJECTO 00:00: the skin [place] R) 70 mg/mL 00 once every Me dical AtIn month. [place] erenumab-ao Yes 1mL inject 1 [facility] oe (AIMOVIG 7-03 mL under ity of AUTOINJECTO 00:00: the skin [place] R) 70 mg/mL 00 once every Me dical AtIn month. [place] erenumab-ao Yes 1mL inject 1 [facility] oe (AIMOVIG 7-03 mL under ity of AUTOINJECTO 00:00: the skin [place] R) 70 mg/mL 00 once every Me dical AtIn month. [place] erenumab-ao Yes 1mL inject 1 [facility] oe (AIMOVIG 7-03 mL under ity of AUTOINJECTO 00:00: the skin [place] R) 70 mg/mL 00 once every Me dical AtIn month. [place] erenumab-ao Yes 1mL inject 1 [facility] oe (AIMOVIG 7-03 mL under ity of AUTOINJECTO 00:00: the skin [place] R) 70 mg/mL 00 once every Me dical AtIn month. [place] erenumab-ao Yes 1mL inject 1 [facility] oe (AIMOVIG 7-03 mL under ity of AUTOINJECTO 00:00: the skin [place] R) 70 mg/mL 00 once every Me dical AtIn month. [place] erenumab-ao Yes 1mL inject 1 [facility] oe (AIMOVIG 7-03 mL under ity of AUTOINJECTO 00:00: the skin [place] R) 70 mg/mL 00 once every Me dical AtIn month. [place] erenumab-ao Yes 1mL inject 1 [facility] oe (AIMOVIG 7-03 mL under ity of AUTOINJECTO 00:00: the skin [place] R) 70 mg/mL 00 once every Me dical AtIn month. [place] erenumab-ao Yes 1mL inject 1 [facility] oe (AIMOVIG 6-26 mL under ity of AUTOINJECTO 00:00: the skin [place] R) 70 mg/mL 00 once every Me dical AtIn month. [place] erenumab-ao 2022-0 Yes [id number] 1mL inject 1 [facility] oe (AIMOVIG 6-26 mL under ity of AUTOINJECTO 00:00: the skin [place] R) 70 mg/mL 00 once every Me dical AtIn month. Branch erenumab-ao 2022-0 2022- No [id number] 1mL inject 1 [facility] oe (AIMOVIG 6-26 07-03 mL under ity of AUTOINJECTO 00:00: 00:00 the skin [place] R) 70 mg/mL 00 :00 once every Me dical AtIn month. Branch erenumab-ao 2022-0 2022- No [id number] 1mL inject 1 [facility] oe (AIMOVIG 6-26 07-03 mL under ity of AUTOINJECTO 00:00: 00:00 the skin [place] R) 70 mg/mL 00 :00 once every Me dical AtIn month. [place] erenumab-ao 0 2022- No [id number] 1mL inject 1 [facility] oe (AIMOVIG 6-26 07-03 mL under ity of AUTOINJECTO 00:00: 00:00 the skin [place] R) 70 mg/mL 00 :00 once every Me dical AtIn month. [place] ibuprofen 2023-0 Yes [id number] 800mg Take 1 [facility] 800 mg 6-09 tablet by ity of tablet 00:00: mouth in [address] and 1 tablet at noon and 1 tablet in the evening. Take with meals. ibuprofen 2023-0 Yes [id number] 800mg Take 1 [facility] 800 mg 6-09 tablet by ity of tablet 00:00: mouth in [address] and 1 tablet at noon and 1 tablet in the evening. Take with meals. ibuprofen 2023-0 Yes [id number] 800mg Take 1 [facility] 800 mg 6-09 tablet by ity of tablet 00:00: mouth in [address] and 1 tablet at noon and 1 tablet in the evening. Take with meals. ibuprofen 2023-0 Yes [id number] 800mg Take 1 [facility] 800 mg 6-09 tablet by ity of tablet 00:00: mouth in [address] and 1 tablet at noon and 1 tablet in the evening. Take with meals. ibuprofen 2023-0 Yes [id number] 800mg Take 1 [facility] 800 mg 6-09 tablet by ity of tablet 00:00: mouth in [address] morning [place] and 1 tablet at noon and 1 tablet in the evening. Take with meals. ibuprofen 2023-0 Yes [id number] 800mg Take 1 [facility] 800 mg 6-09 tablet by ity of tablet 00:00: mouth in [address] and 1 tablet at noon and 1 tablet in the evening. Take with meals. ibuprofen 2023-0 Yes [id number] 800mg Take 1 [facility] 800 mg 6-09 tablet by ity of tablet 00:00: mouth in [address] and 1 tablet at noon and 1 tablet in the evening. Take with meals. ibuprofen 2023-0 Yes [id number] 800mg Take 1 [facility] 800 mg 6-09 tablet by ity of tablet 00:00: mouth in [address] and 1 tablet at noon and 1 tablet in the evening. Take with meals. ibuprofen 2023-0 Yes [id number] 800mg Take 1 [facility] 800 mg 6-09 tablet by ity of tablet 00:00: mouth in [address] and 1 tablet at noon and 1 tablet in the evening. Take with meals. ibuprofen 2023-0 Yes [id number] 800mg Take 1 [facility] 800 mg 6-09 tablet by ity of tablet 00:00: mouth in [address] and 1 tablet at noon and 1 tablet in the evening. Take with meals. ibuprofen 2023-0 Yes [id number] 800mg Take 1 [facility] 800 mg 6-09 tablet by ity of tablet 00:00: mouth in [address] and 1 tablet at noon and 1 tablet in the evening. Take with meals. ibuprofen 2023-0 Yes [id number] 800mg Take 1 [facility] 800 mg 6-09 tablet by ity of tablet 00:00: mouth in [address] and 1 tablet at noon and 1 tablet in the evening. Take with meals. ibuprofen 2023-0 Yes [id number] 800mg Take 1 [facility] 800 mg 6-09 tablet by ity of tablet 00:00: mouth in [place] 00 the Medical morning Branch and 1 tablet at noon and 1 tablet in the evening. Take with meals. ibuprofen 2022-0 Yes [id number] 800mg Take 1 [facility] 800 mg 07-22 tablet by ity of tablet 00:00: mouth in [place] 00 the [facility] morning Branch and 1 tablet at noon and 1 tablet in the evening. Take with meals. ibuprofen 2022-0 2022- No [id number] 800mg Take 1 [facility] 800 mg 07-22 tablet by ity of tablet 00:00: 00:00 mouth in [place] 00 :00 the [facility] morning Branch and 1 tablet at noon and 1 tablet in the evening. Take with meals. ibuprofen 2022-0 2022- No [id number] 800mg Take 1 [facility] 800 mg 07-22 tablet by ity of tablet 00:00: 00:00 mouth in [place] 00 :00 the [facility] morning Branch and 1 tablet at noon and 1 tablet in the evening. Take with meals. ibuprofen 2022-0 2022- No [id number] 800mg Take 1 [facility] 800 mg 07-22 tablet by ity of tablet 00:00: 00:00 mouth in [place] 00 :00 the [facility] morning [place] and 1 tablet at noon and 1 tablet in the evening. Take with meals. ondansetron 2022- No 4mg 4 mg, Slow [facility] (ZOFRAN 07-20 IV Push, ity of (PF)) 21:15: 20:36 ONCE, 1 [place] injection 4 00 :00 dose, On Medi leena mg Mon07/20/22 Branch at 1615, Routine morpHINE (4 2022- No 4mg 4 mg, Slow [facility] mg/mL) 07-20 IV Push, ity of injection 4 21:00: 20:37 ONCE, 1 [place] mg 00 :00 dose, On Medical 07/20/22 Branch at 1600, Routine iopamidol 2022-3- No [id number] 65mL 65 mL, Univers (ISOVUE 07-20 Intravenou ity o f 370-500 mL) 20:49: 20:49 s, ONCE, 1 [place] injection 00 :00 dose, On Medica l 65 mL Mon07/20/22 Branch at 1600, Routine naproxen 2022-0 Yes [id number] 550mg Take 1 U nivers sodium 6-07 tablet by ity of (ANAPROX 00:00: mouth in [place] DS) 550 mg 00 the Medical tablet morning Branch and 1 tablet in the evening. Take with meals. naproxen 3-0 Yes [id number] 550mg Take 1 U nivers sodium 6-07 tablet by ity of (ANAPROX 00:00: mouth in [place] DS) 550 mg 00 the Medical tablet morning Branch and 1 tablet in the evening. Take with meals. naproxen 2022-0 Yes [id number] 550mg Take 1 U nivers sodium 6-07 tablet by ity of (ANAPROX 00:00: mouth in [place] DS) 550 mg 00 the Medical tablet morning Branch and 1 tablet in the evening. Take with meals. naproxen 3-0 Yes [id number] 550mg Take 1 U nivers sodium 6-07 tablet by ity of (ANAPROX 00:00: mouth in [place] DS) 550 mg 00 the Medical tablet morning Branch and 1 tablet in the evening. Take with meals. naproxen 2022-0 Yes [id number] 550mg Take 1 U nivers sodium 6-07 tablet by ity of (ANAPROX 00:00: mouth in [place] DS) 550 mg 00 the Medical tablet morning Branch and 1 tablet in the evening. Take with meals. naproxen 2022-0 Yes [id number] 550mg Take 1 U nivers sodium 6-07 tablet by ity of (ANAPROX 00:00: mouth in [place] DS) 550 mg 00 the Medical tablet morning Branch and 1 tablet in the evening. Take with meals. naproxen 3-0 Yes [id number] 550mg Take 1 U nivers sodium 6-07 tablet by ity of (ANAPROX 00:00: mouth in [place] DS) 550 mg 00 the Medical tablet morning Branch and 1 tablet in the evening. Take with meals. naproxen 3-0 Yes [id number] 550mg Take 1 U nivers sodium 6-07 tablet by ity of (ANAPROX 00:00: mouth in [place] DS) 550 mg 00 the Medical tablet morning Branch and 1 tablet in the evening. Take with meals. naproxen 3-0 Yes [id number] 550mg Take 1 U nivers sodium 6-07 tablet by ity of (ANAPROX 00:00: mouth in [place] DS) 550 mg 00 the Medical tablet morning Branch and 1 tablet in the evening. Take with meals. naproxen 2023-0 Yes [id number] 550mg Take 1 U nivers sodium 6-07 tablet by ity of (ANAPROX 00:00: mouth in [place] DS) 550 mg 00 the Medical tablet morning Branch and 1 tablet in the evening. Take with meals. naproxen 3-0 Yes [id number] 550mg Take 1 U nivers sodium 6-07 tablet by ity of (ANAPROX 00:00: mouth in [place] DS) 550 mg 00 the Medical tablet morning Branch and 1 tablet in the evening. Take with meals. naproxen 3-0 Yes [id number] 550mg Take 1 U nivers sodium 6-07 tablet by ity of (ANAPROX 00:00: mouth in [place] DS) 550 mg 00 the Medical tablet morning Branch and 1 tablet in the evening. Take with meals. naproxen 3-0 Yes [id number] 550mg Take 1 U nivers sodium 6-07 tablet by ity of (ANAPROX 00:00: mouth in [facility]) 550 mg 00 the Medical tablet morning Branch and 1 tablet in the evening. Take with meals. naproxen 3-0 Yes [id number] 550mg Take 1 U nivers sodium 6-07 tablet by ity of (ANAPROX 00:00: mouth in [facility]) 550 mg 00 the Medical tablet morning Branch and 1 tablet in the evening. Take with meals. naproxen 3-0 Yes [id number] 550mg Take 1 U nivers sodium 6-07 tablet by ity of (ANAPROX 00:00: mouth in [facility]) 550 mg 00 the Medical tablet morning Branch and 1 tablet in the evening. Take with meals. naproxen 3-0 Yes [id number] 550mg Take 1 U nivers sodium 6-07 tablet by ity of (ANAPROX 00:00: mouth in [facility]) 550 mg 00 the Medical tablet morning Branch and 1 tablet in the evening. Take with meals. naproxen 2023-0 Yes [id number] 550mg Take 1 U nivers sodium 6-07 tablet by ity of (ANAPROX 00:00: mouth in [facility]) 550 mg 00 the Medical tablet morning Branch and 1 tablet in the evening. Take with meals. naproxen 2023-0 Yes [id number] 550mg Take 1 U nivers sodium 6-07 tablet by ity of (ANAPROX 00:00: mouth in [place] DS) 550 mg 00 the Medical tablet morning Branch and 1 tablet in the evening. Take with meals. naproxen 3-0 Yes [id number] 550mg Take 1 U nivers sodium 6-07 tablet by ity of (ANAPROX 00:00: mouth in [place] DS) 550 mg 00 the Medical tablet morning Branch and 1 tablet in the evening. Take with meals. naproxen 2022-0 Yes [id number] 550mg Take 1 U nivers sodium 6-07 tablet by ity of (ANAPROX 00:00: mouth in [place] DS) 550 mg 00 the Medical tablet morning Branch and 1 tablet in the evening. Take with meals. naproxen 2022-0 Yes [id number] 550mg Take 1 U nivers sodium 6-07 tablet by ity of (ANAPROX 00:00: mouth in [place] DS) 550 mg 00 the Medical tablet morning Branch and 1 tablet in the evening. Take with meals. naproxen 2022-0 Yes [id number] 550mg Take 1 U nivers sodium 6-07 tablet by ity of (ANAPROX 00:00: mouth in [place] DS) 550 mg 00 the Medical tablet morning Branch and 1 tablet in the evening. Take with meals. naproxen 2022-0 Yes [id number] 550mg Take 1 U nivers sodium 6-07 tablet by ity of (ANAPROX 00:00: mouth in [place] DS) 550 mg 00 the Medical tablet morning Branch and 1 tablet in the evening. Take with meals. naproxen 3-0 Yes [id number] 550mg Take 1 U nivers sodium 6-07 tablet by ity of (ANAPROX 00:00: mouth in [place] DS) 550 mg 00 the Medical tablet morning Branch and 1 tablet in the evening. Take with meals. naproxen 3-0 Yes [id number] 550mg Take 1 U nivers sodium 6-07 tablet by ity of (ANAPROX 00:00: mouth in [place] DS) 550 mg 00 the Medical tablet morning Branch and 1 tablet in the evening. Take with meals. naproxen 3-0 Yes [id number] 550mg Take 1 U nivers sodium 6-07 tablet by ity of (ANAPROX 00:00: mouth in [place] DS) 550 mg 00 the Medical tablet morning Branch and 1 tablet in the evening. Take with meals. naproxen 2023-0 Yes [id number] 550mg Take 1 U nivers sodium 6-07 tablet by ity of (ANAPROX 00:00: mouth in [facility]) 550 mg 00 the Medical tablet morning Branch and 1 tablet in the evening. Take with meals. naproxen 2023-0 2023- No [id number] 550mg Take 1 [facility] sodium 6- 08-11 tablet by ity of (ANAPROX 00:00: 00:00 mouth in [facility]) 550 mg 00 :00 the Medical tablet morning Branch and 1 tablet in the evening. Take with meals. naproxen 2023-0 2023- No [id number] 550mg Take 1 [facility] sodium 6- 08-11 tablet by ity of (ANAPROX 00:00: 00:00 mouth in [facility]) 550 mg 00 :00 the Medical tablet morning Branch and 1 tablet in the evening. Take with meals. naproxen 2023-0 3- No [id number] 550mg Take 1 [facility] sodium 6- 08-11 tablet by ity of (ANAPROX 00:00: 00:00 mouth in [facility]) 550 mg 00 :00 the Medical tablet morning Branch and 1 tablet in the evening. Take with meals. cephALEXin 2023-0 2023- No [id number] 500mg Take 1 Univers (KEFLEX) 6- 06-15 capsule by ity of 500 mg 00:00: 04:59 mouth in [place] capsule 00 :00 the Medical morning Branch and 1 capsule at noon and 1 capsule in the evening. Do all this for 7 days. cephALEXin 2023-0 2023- No [id number] 500mg Take 1 Univers (KEFLEX) 6- 06-15 capsule by ity of 500 mg 00:00: 04:59 mouth in [place] capsule 00 :00 the Medical morning Branch and 1 capsule at noon and 1 capsule in the evening. Do all this for 7 days. cephALEXin 2023-0 2023- No [id number] 500mg Take 1 Univers (KEFLEX) 6- 06-15 capsule by ity of 500 mg 00:00: 04:59 mouth in [place] capsule 00 :00 the Medical morning Branch and 1 capsule at noon and 1 capsule in the evening. Do all this for 7 days. cephALEXin 2022-0 2022- No [id number] 500mg Take 1 Univers (KEFLEX) 07-20-15 capsule by ity of 500 mg 00:00: 04:59 mouth in [place] capsule 00 :00 the Medical morning Branch and 1 capsule at noon and 1 capsule in the evening. Do all this for 7 days. cephALEXin 2022-0 3- No [id number] 500mg Take 1 Univers (KEFLEX) 07-2015 capsule by ity of 500 mg 00:00: 04:59 mouth in [place] capsule 00 :00 the Medical morning Branch and 1 capsule at noon and 1 capsule in the evening. Do all this for 7 days. cephALEXin 2022-0 3- No [id number] 500mg Take 1 Univers (KEFLEX) 07-20 capsule by ity of 500 mg 00:00: 04:59 mouth in [place] capsule 00 :00 the Medical morning Branch and 1 capsule at noon and 1 capsule in the evening. Do all this for 7 days. cephALEXin 2022-0 3- No [id number] 500mg Take 1 Univers (KEFLEX) 07-20 capsule by ity of 500 mg 00:00: 04:59 mouth in [place] capsule 00 :00 the Medical morning Branch and 1 capsule at noon and 1 capsule in the evening. Do all this for 7 days. fluconazole 2022-2022- No [id number] 150mg Take 1 [facility] 150 mg 07-2008 tablet by ity of tablet 00:00: 04:59 mouth [place] 00 :00 now for 1 Medical dose. Branch topiramate 2022- No Take by Uni vers 25 mg Cp24 07-1805 mouth. ity of 11:47: 00:00 10 :00 [facility] Branch topiramate 2022-0 2022- No Take by Uni vers 25 mg Cp24 07-1805 mouth. ity of 11:47: 00:00 10 :00 [facility] Branch topiramate 2022-0 2022- No Take by Uni vers 25 mg Cp24 07-18-05 mouth. ity of 11:47: 00:00 [place] 10 :00 [facility] Branch sumatriptan 2022- Yes [id number] 100mg Take 1 [facility] 100 mg 6-05 tablet by ity of tablet 00:00: mouth as [place] 00 needed for Medical Migraine Branch (Max of 2 tablets/da y.). propranoloL 2023-0 Yes [id number] 20mg Take 1 [facility] 20 mg 6-05 tablet by ity of tablet 00:00: mouth in [place] 00 the Medical morning Branch and 1 tablet in the evening. sumatriptan 2023-0 Yes [id number] 100mg Take 1 [facility] 100 mg 6-05 tablet by ity of tablet 00:00: mouth as [place] 00 needed for Medical Migraine Branch (Max of 2 tablets/da y.). propranoloL 2023-0 Yes [id number] 20mg Take 1 [facility] 20 mg 6-05 tablet by ity of tablet 00:00: mouth in [place] 00 the Medical morning Branch and 1 tablet in the evening. sumatriptan 2023-0 Yes [id number] 100mg Take 1 [facility] 100 mg 6-05 tablet by ity of tablet 00:00: mouth as [place] 00 needed for Medical Migraine Branch (Max of 2 tablets/da y.). propranoloL 2023-0 Yes [id number] 20mg Take 1 [facility] 20 mg 6-05 tablet by ity of tablet 00:00: mouth in [place] 00 the Medical morning Branch and 1 tablet in the evening. sumatriptan 2023-0 Yes [id number] 100mg Take 1 [facility] 100 mg 6-05 tablet by ity of tablet 00:00: mouth as [place] 00 needed for Medical Migraine Branch (Max of 2 tablets/da y.). propranoloL 2023-0 Yes [id number] 20mg Take 1 [facility] 20 mg 6-05 tablet by ity of tablet 00:00: mouth in [place] 00 the Medical morning Branch and 1 tablet in the evening. sumatriptan 2023-0 Yes [id number] 100mg Take 1 [facility] 100 mg 6-05 tablet by ity of tablet 00:00: mouth as [place] 00 needed for Medical Migraine Branch (Max of 2 tablets/da y.). propranoloL 2023-0 Yes [id number] 20mg Take 1 [facility] 20 mg 6-05 tablet by ity of tablet 00:00: mouth in [place] 00 the Medical morning Branch and 1 tablet in the evening. sumatriptan 2023-0 Yes [id number] 100mg Take 1 [facility] 100 mg 6-05 tablet by ity of tablet 00:00: mouth as [place] 00 needed for Medical Migraine Branch (Max of 2 tablets/da y.). propranoloL 2023-0 Yes [id number] 20mg Take 1 [facility] 20 mg 6-05 tablet by ity of tablet 00:00: mouth in [place] 00 the Medical morning Branch and 1 tablet in the evening. sumatriptan 2023-0 Yes [id number] 100mg Take 1 [facility] 100 mg 6-05 tablet by ity of tablet 00:00: mouth as [place] 00 needed for Medical Migraine Branch (Max of 2 tablets/da y.). propranoloL 2023-0 Yes [id number] 20mg Take 1 [facility] 20 mg 6-05 tablet by ity of tablet 00:00: mouth in [place] 00 the Medical morning Branch and 1 tablet in the evening. sumatriptan 2023-0 Yes [id number] 100mg Take 1 [facility] 100 mg 6-05 tablet by ity of tablet 00:00: mouth as [place] 00 needed for Medical Migraine Branch (Max of 2 tablets/da y.). propranoloL 2023-0 Yes [id number] 20mg Take 1 [facility] 20 mg 6-05 tablet by ity of tablet 00:00: mouth in [place] 00 the Medical morning Branch and 1 tablet in the evening. sumatriptan 2023-0 Yes [id number] 100mg Take 1 [facility] 100 mg 6-05 tablet by ity of tablet 00:00: mouth as [place] 00 needed for Medical Migraine Branch (Max of 2 tablets/da y.). propranoloL 2023-0 Yes [id number] 20mg Take 1 [facility] 20 mg 6-05 tablet by ity of tablet 00:00: mouth in [place] 00 the Medical morning Branch and 1 tablet in the evening. sumatriptan 2023-0 Yes [id number] 100mg Take 1 [facility] 100 mg 6-05 tablet by ity of tablet 00:00: mouth as [place] 00 needed for Medical Migraine Branch (Max of 2 tablets/da y.). propranoloL 2023-0 Yes [id number] 20mg Take 1 [facility] 20 mg 6-05 tablet by ity of tablet 00:00: mouth in [place] 00 the Medical morning Branch and 1 tablet in the evening. sumatriptan 2023-0 Yes [id number] 100mg Take 1 [facility] 100 mg 6-05 tablet by ity of tablet 00:00: mouth as [place] 00 needed for Medical Migraine Branch (Max of 2 tablets/da y.). propranoloL 2023-0 Yes [id number] 20mg Take 1 [facility] 20 mg 6-05 tablet by ity of tablet 00:00: mouth in [place] 00 the Medical morning Branch and 1 tablet in the evening. sumatriptan 2023-0 Yes [id number] 100mg Take 1 [facility] 100 mg 6-05 tablet by ity of tablet 00:00: mouth as [place] 00 needed for Medical Migraine Branch (Max of 2 tablets/da y.). propranoloL 2023-0 Yes [id number] 20mg Take 1 [facility] 20 mg 6-05 tablet by ity of tablet 00:00: mouth in [place] 00 the Medical morning Branch and 1 tablet in the evening. sumatriptan 2023-0 Yes [id number] 100mg Take 1 [facility] 100 mg 6-05 tablet by ity of tablet 00:00: mouth as [place] 00 needed for Medical Migraine Branch (Max of 2 tablets/da y.). propranoloL 2023-0 Yes [id number] 20mg Take 1 [facility] 20 mg 6-05 tablet by ity of tablet 00:00: mouth in [place] 00 the Medical morning Branch and 1 tablet in the evening. sumatriptan 2023-0 Yes [id number] 100mg Take 1 [facility] 100 mg 6-05 tablet by ity of tablet 00:00: mouth as [place] 00 needed for Medical Migraine Branch (Max of 2 tablets/da y.). propranoloL 2023-0 Yes [id number] 20mg Take 1 [facility] 20 mg 6-05 tablet by ity of tablet 00:00: mouth in [place] 00 the Medical morning Branch and 1 tablet in the evening. sumatriptan 2023-0 Yes [id number] 100mg Take 1 [facility] 100 mg 6-05 tablet by ity of tablet 00:00: mouth as [place] 00 needed for Medical Migraine Branch (Max of 2 tablets/da y.). propranoloL 2023-0 Yes [id number] 20mg Take 1 [facility] 20 mg 6-05 tablet by ity of tablet 00:00: mouth in [place] 00 the Medical morning Branch and 1 tablet in the evening. sumatriptan 2023-0 Yes [id number] 100mg Take 1 [facility] 100 mg 6-05 tablet by ity of tablet 00:00: mouth as [place] 00 needed for Medical Migraine Branch (Max of 2 tablets/da y.). propranoloL 2023-0 Yes [id number] 20mg Take 1 [facility] 20 mg 6-05 tablet by ity of tablet 00:00: mouth in [place] 00 the Medical morning Branch and 1 tablet in the evening. sumatriptan 2023-0 Yes [id number] 100mg Take 1 [facility] 100 mg 6-05 tablet by ity of tablet 00:00: mouth as [place] 00 needed for Medical Migraine Branch (Max of 2 tablets/da y.). propranoloL 2023-0 Yes [id number] 20mg Take 1 [facility] 20 mg 6-05 tablet by ity of tablet 00:00: mouth in [place] 00 the Medical morning Branch and 1 tablet in the evening. sumatriptan 2023-0 Yes [id number] 100mg Take 1 [facility] 100 mg 6-05 tablet by ity of tablet 00:00: mouth as 00 needed for Medical Migraine Branch (Max of 2 tablets/da y.). propranoloL 2023-0 Yes [id number] 20mg Take 1 [facility] 20 mg 6-05 tablet by ity of tablet 00:00: mouth in [place] 00 the Medical morning Branch and 1 tablet in the evening. sumatriptan 2023-0 Yes [id number] 100mg Take 1 [facility] 100 mg 6-05 tablet by ity of tablet 00:00: mouth as 00 needed for Medical Migraine Branch (Max of 2 tablets/da y.). propranoloL 2023-0 Yes [id number] 20mg Take 1 [facility] 20 mg 6-05 tablet by ity of tablet 00:00: mouth in [place] 00 the Medical morning Branch and 1 tablet in the evening. sumatriptan 2023-0 Yes [id number] 100mg Take 1 [facility] 100 mg 6-05 tablet by ity of tablet 00:00: mouth as 00 needed for Medical Migraine Branch (Max of 2 tablets/da y.). propranoloL 2023-0 Yes [id number] 20mg Take 1 [facility] 20 mg 6-05 tablet by ity of tablet 00:00: mouth in [place] 00 the Medical morning Branch and 1 tablet in the evening. sumatriptan 2023-0 Yes [id number] 100mg Take 1 [facility] 100 mg 6-05 tablet by ity of tablet 00:00: mouth as [place] 00 needed for Medical Migraine Branch (Max of 2 tablets/da y.). propranoloL 2023-0 Yes [id number] 20mg Take 1 [facility] 20 mg 6-05 tablet by ity of tablet 00:00: mouth in [place] 00 the Medical morning Branch and 1 tablet in the evening. sumatriptan 2023-0 Yes [id number] 100mg Take 1 [facility] 100 mg 6-05 tablet by ity of tablet 00:00: mouth as [place] 00 needed for Medical Migraine Branch (Max of 2 tablets/da y.). propranoloL 2023-0 Yes [id number] 20mg Take 1 [facility] 20 mg 6-05 tablet by ity of tablet 00:00: mouth in [place] 00 the Medical morning Branch and 1 tablet in the evening. sumatriptan 2023-0 Yes [id number] 100mg Take 1 [facility] 100 mg 6-05 tablet by ity of tablet 00:00: mouth as [place] 00 needed for Medical Migraine Branch (Max of 2 tablets/da y.). propranoloL 2023-0 Yes [id number] 20mg Take 1 [facility] 20 mg 6-05 tablet by ity of tablet 00:00: mouth in [place] 00 the Medical morning Branch and 1 tablet in the evening. sumatriptan 2023-0 Yes [id number] 100mg Take 1 [facility] 100 mg 6-05 tablet by ity of tablet 00:00: mouth as 00 needed for Medical Migraine Branch (Max of 2 tablets/da y.). propranoloL 2023-0 Yes [id number] 20mg Take 1 [facility] 20 mg 6-05 tablet by ity of tablet 00:00: mouth in [place] 00 the Medical morning Branch and 1 tablet in the evening. sumatriptan 2023-0 Yes [id number] 100mg Take 1 [facility] 100 mg 6-05 tablet by ity of tablet 00:00: mouth as [place] 00 needed for Medical Migraine Branch (Max of 2 tablets/da y.). propranoloL 2023-0 Yes [id number] 20mg Take 1 [facility] 20 mg 6-05 tablet by ity of tablet 00:00: mouth in [place] 00 the Medical morning Branch and 1 tablet in the evening. sumatriptan 2023-0 Yes [id number] 100mg Take 1 [facility] 100 mg 6-05 tablet by ity of tablet 00:00: mouth as [place] 00 needed for Medical Migraine Branch (Max of 2 tablets/da y.). propranoloL 2023-0 Yes [id number] 20mg Take 1 [facility] 20 mg 6-05 tablet by ity of tablet 00:00: mouth in [place] 00 the Medical morning Branch and 1 tablet in the evening. sumatriptan 2023-0 Yes [id number] 100mg Take 1 [facility] 100 mg 6-05 tablet by ity of tablet 00:00: mouth as [place] 00 needed for Medical Migraine Branch (Max of 2 tablets/da y.). propranoloL 2023-0 Yes [id number] 20mg Take 1 [facility] 20 mg 6-05 tablet by ity of tablet 00:00: mouth in [place] 00 the Medical morning Branch and 1 tablet in the evening. sumatriptan 2023-0 Yes [id number] 100mg Take 1 [facility] 100 mg 6-05 tablet by ity of tablet 00:00: mouth as [place] 00 needed for Medical Migraine Branch (Max of 2 tablets/da y.). propranoloL 2023-0 Yes [id number] 20mg Take 1 [facility] 20 mg 6-05 tablet by ity of tablet 00:00: mouth in [place] 00 the Medical morning Branch and 1 tablet in the evening. sumatriptan 2023-0 Yes [id number] 100mg Take 1 [facility] 100 mg 6-05 tablet by ity of tablet 00:00: mouth as [place] 00 needed for Medical Migraine Branch (Max of 2 tablets/da y.). propranoloL 2023-0 Yes [id number] 20mg Take 1 [facility] 20 mg 6-05 tablet by ity of tablet 00:00: mouth in [place] 00 the Medical morning Branch and 1 tablet in the evening. sumatriptan 2023-0 Yes [id number] 100mg Take 1 [facility] 100 mg 6-05 tablet by ity of tablet 00:00: mouth as [place] 00 needed for Medical Migraine Branch (Max of 2 tablets/da y.). propranoloL 2023-0 Yes [id number] 20mg Take 1 [facility] 20 mg 6-05 tablet by ity of tablet 00:00: mouth in [place] 00 the Medical morning Branch and 1 tablet in the evening. sumatriptan 2023-0 Yes [id number] 100mg Take 1 [facility] 100 mg 6-05 tablet by ity of tablet 00:00: mouth as [place] 00 needed for Medical Migraine Branch (Max of 2 tablets/da y.). propranoloL 2023-0 Yes [id number] 20mg Take 1 [facility] 20 mg 6-05 tablet by ity of tablet 00:00: mouth in [place] 00 the Medical morning Branch and 1 tablet in the evening. sumatriptan 2023-0 Yes [id number] 100mg Take 1 [facility] 100 mg 6-05 tablet by ity of tablet 00:00: mouth as [place] 00 needed for Medical Migraine Branch (Max of 2 tablets/da y.). propranoloL 2023-0 Yes [id number] 20mg Take 1 [facility] 20 mg 6-05 tablet by ity of tablet 00:00: mouth in [place] 00 the Medical morning Branch and 1 tablet in the evening. sumatriptan 2023-0 Yes [id number] 100mg Take 1 [facility] 100 mg 6-05 tablet by ity of tablet 00:00: mouth as [place] 00 needed for Medical Migraine Branch (Max of 2 tablets/da y.). sumatriptan 2023-0 Yes [id number] 100mg Take 1 [facility] 100 mg 6-05 tablet by ity of tablet 00:00: mouth as [place] 00 needed for Medical Migraine Branch (Max of 2 tablets/da y.). sumatriptan 2022-0 2022- No [id number] 100mg Take 1 [facility] 100 mg 6-05 08-14 tablet by ity of tablet 00:00: 00:00 mouth as [place] 00 :00 needed for Medical Migraine Branch (Max of 2 tablets/da y.). propranoloL 2022-0 2022- No [id number] 20mg Take 1 [facility] 20 mg 6-05 08-11 tablet by ity of tablet 00:00: 00:00 mouth in [place] 00 :00 the Medical morning Branch and 1 tablet in the evening. propranoloL 2022-0 2022- No [id number] 20mg Take 1 [facility] 20 mg 6-05 08-11 tablet by ity of tablet 00:00: 00:00 mouth in [place] 00 :00 the Medical morning Branch and 1 tablet in the evening. propranoloL 2022-0 2022- No [id number] 20mg Take 1 [facility] 20 mg 6-05 08-11 tablet by ity of tablet 00:00: 00:00 mouth in [place] 00 :00 the Medical morning Branch and 1 tablet in the evening. ketorolac 2022-0 2022- No 30mg 30 mg, Unive rs (TORADOL) 06-26-14 Slow IV ity of injection 07:15: 06:43 [place], [place] 30 mg 00 :00 ONCE, 1 Medical dose, On Branch 06/26/22 at 0215, Routine NaCl 0.9% 2022- No 1000mL at 999 Uni vers (NS) bolus 06-26-14 mL/hr, ity of infusion 07:15: 07:23 1,000 mL, [place] 1,000 mL 00 :00 IV Medical Infusion, Branch ONCE, 1 dose, On 06/26/22 at 0215, JOSE ALEJANDRO diphenhydrA 2022- No 25mg 25 mg, Uni vers MINE 06-26 Slow IV ity of (BENADRYL) 06:30: 06:44 Push, [place] injection 00 :00 ONCE, 1 Medical 25 mg dose, On Branch 06/26/22 at 0130, STAT metoclopram 2022- No 10mg 10 mg, Uni vers rashel HCl 06-26 Slow IV ity of (REGLAN) 06:30: 06:44 Push, [place] injection 00 :00 ONCE, 1 Medical 10 mg dose, On Branch 06/26/22 at 0130, JOSE ALEJANDRO topiramate 2022- No [id number] Take 1 [facility] 25 mg 4-24 05-09 tablet by ity of tablet 00:00: 04:59 mouth 2 [place] 00 :00 (two) Medical times [place] daily for 7 days, THEN 2 tablets 2 (two) times daily for 7 days. topiramate 2022-0 2022- No [id number] Take 1 [facility] 25 mg 4-24 05-09 tablet by ity of tablet 00:00: 04:59 mouth 2 [place] 00 :00 (two) Medical times [place] daily for 7 days, THEN 2 tablets 2 (two) times daily for 7 days. methylPREDN 2020- No 40mg 40 mg, Uni vers ISolone sod 09-2412 Intramuscu i ty of succ 09:00: 08:39 lar, ONCE, [place] (SOLU-MEDRO 00 :00 1 dose, Medic al L (PF)) [place] Branch injection 09/24/20 at 40 mg 0400, STAT predniSONE 2020- Yes [id number] TAKE ONE Univers 20 mg 8-12 TABLET ity of tablet 00:00: ORALLY [place] 00 DAILY Medical Branch hydrOXYzine Yes [id number] 25mg Take 1 [facility] 25 mg 8-12 tablet by ity of tablet 00:00: mouth [place] 00 every 6 Medical (six) Branch hours as needed for Itching. predniSONE Yes [id number] TAKE ONE [facility] 20 mg 8-12 TABLET ity of tablet 00:00: ORALLY [place] 00 DAILY Medical Branch hydrOXYzine 2020-0 Yes [id number] 25mg Take 1 [facility] 25 mg 8-12 tablet by ity of tablet 00:00: mouth [place] 00 every 6 Medical (six) Branch hours as needed for Itching. predniSONE 2020-0 Yes [id number] TAKE ONE [facility] 20 mg 8-12 TABLET ity of tablet 00:00: ORALLY [place] 00 DAILY Medical Branch hydrOXYzine 2020-0 Yes [id number] 25mg Take 1 [facility] 25 mg 8-12 tablet by ity of tablet 00:00: mouth [place] 00 every 6 Medical (six) Branch hours as needed for Itching. predniSONE 2020-0 Yes [id number] TAKE ONE [facility] 20 mg 8-12 TABLET ity of tablet 00:00: ORALLY [place] 00 DAILY Medical Branch hydrOXYzine 2020-0 Yes [id number] 25mg Take 1 [facility] 25 mg 8-12 tablet by ity of tablet 00:00: mouth [place] 00 every 6 Medical (six) Branch hours as needed for Itching. predniSONE 2020-0 2022- No [id number] TAKE ONE [facility] 20 mg 8-12 04-24 TABLET ity of tablet 00:00: 00:00 ORALLY [place] 00 :00 DAILY Medical Branch hydrOXYzine 2020-0 3- No [id number] 25mg Take 1 [facility] 25 mg 8-12 04-24 tablet by ity of tablet 00:00: 00:00 mouth [place] 00 :00 every 6 Medical (six) Branch hours as needed for Itching. predniSONE 2020-0 2022- No [id number] TAKE ONE [facility] 20 mg 8-12 04-24 TABLET ity of tablet 00:00: 00:00 ORALLY [place] 00 :00 DAILY Medical Branch hydrOXYzine 2020-0 3- No [id number] 25mg Take 1 [facility] 25 mg 8-12 04-24 tablet by ity of tablet 00:00: 00:00 mouth [place] 00 :00 every 6 Medical (six) Branch hours as needed for Itching. norgestimat 2019-0 Yes [id number] 1{tbl} Take 1 Univers e-ethinyl 8-12 tablet by ity o f estradiol 00:00: mouth [place] (ORTHO 00 daily. Medical TRI-CYCLEN Branch LO, 28,) 0.18/0.215/ 0.25 mg-25 mcg tablet norgestimat 2020-0 Yes [id number] 1{tbl} Take 1 Univers e-ethinyl 8-12 tablet by ity o f estradiol 00:00: mouth [place] (ORTHO 00 daily. [facility], ,) 0.18/0.215/ 0.25 mg-25 mcg tablet norgestimat 2020-0 Yes [id number] 1{tbl} Take 1 Univers e-ethinyl 8-12 tablet by ity o f estradiol 00:00: mouth [place] (ORTHO 00 daily. [facility], ,) 0.18/0.215/ 0.25 mg-25 mcg tablet norgestimat 2020-0 Yes [id number] 1{tbl} Take 1 Univers e-ethinyl 8-12 tablet by ity o f estradiol 00:00: mouth [place] (ORTHO 00 daily. [facility], ,) 0.18/0.215/ 0.25 mg-25 mcg tablet norgestimat 2020-0 Yes [id number] 1{tbl} Take 1 Univers e-ethinyl 8-12 tablet by ity o f estradiol 00:00: mouth [place] (ORTHO 00 daily. [facility], ,) 0.18/0.215/ 0.25 mg-25 mcg tablet norgestimat 2020-0 Yes [id number] 1{tbl} Take 1 Univers e-ethinyl 8-12 tablet by ity o f estradiol 00:00: mouth [place] (ORTHO 00 daily. [facility], ,) 0.18/0.215/ 0.25 mg-25 mcg tablet norgestimat 2020-0 Yes [id number] 1{tbl} Take 1 Univers e-ethinyl 8-12 tablet by ity o f estradiol 00:00: mouth [place] (ORTHO 00 daily. [facility], ,) 0.18/0.215/ 0.25 mg-25 mcg tablet norgestimat 2020-0 Yes [id number] 1{tbl} Take 1 [facility] e-ethinyl 8-12 tablet by ity o f estradiol 00:00: mouth [place] (ORTHO 00 daily. [facility], ,) 0.18/0.215/ 0.25 mg-25 mcg tablet norgestimat 2020-0 Yes [id number] 1{tbl} Take 1 Univers e-ethinyl 8-12 tablet by ity o f estradiol 00:00: mouth [place] (ORTHO 00 daily. [facility], ,) 0.18/0.215/ 0.25 mg-25 mcg tablet norgestimat 2020-0 Yes [id number] 1{tbl} Take 1 Univers e-ethinyl 8-12 tablet by ity o f estradiol 00:00: mouth [place] (ORTHO 00 daily. [facility], ,) 0.18/0.215/ 0.25 mg-25 mcg tablet norgestimat 2020-0 Yes [id number] 1{tbl} Take 1 Univers e-ethinyl 8-12 tablet by ity o f estradiol 00:00: mouth [place] (ORTHO 00 daily. [facility], ,) 0.18/0.215/ 0.25 mg-25 mcg tablet norgestimat 2020-0 Yes [id number] 1{tbl} Take 1 Univers e-ethinyl 8-12 tablet by ity o f estradiol 00:00: mouth [place] (ORTHO 00 daily. [facility], 28,) 0.18/0.215/ 0.25 mg-25 mcg tablet norgestimat 2020-0 Yes [id number] 1{tbl} Take 1 Univers e-ethinyl 8-12 tablet by ity o f estradiol 00:00: mouth [place] (ORTHO 00 daily. [facility], ,) 0.18/0.215/ 0.25 mg-25 mcg tablet norgestimat 2020-0 2023- No [id number] 1{tbl} Take 1 Univers e-ethinyl 8-12 04-24 tablet by ity of estradiol 00:00: 00:00 mouth [place] (ORTHO 00 :00 daily. [facility], ,) 0.18/0.215/ 0.25 mg-25 mcg tablet norgestimat 2020-0 2023- No [id number] 1{tbl} Take 1 Univers e-ethinyl 8-12 04-24 tablet by ity of estradiol 00:00: 00:00 mouth [place] [facility] 00 [facility] 0.18/0.215/ 0.25 mg-25 mcg tablet norgestimat 2020-0 Yes [id number] 1{tbl} Take 1 Univers e-ethinyl 7-17 tablet by ity o f estradiol 00:00: mouth [place] [facility] 00 [facility] 0.18/0.215/ 0.25 mg-25 mcg tablet norgestimat 2020-0 Yes [id number] 1{tbl} Take 1 Univers e-ethinyl 7-17 tablet by ity o f estradiol 00:00: mouth [place] [facility] 00 [facility]. [facility] 0.18/0.215/ 0.25 mg-25 mcg tablet norgestimat 2020-0 2020- No [id number] 1{tbl} Take 1 Univers e-ethinyl 7-17 08-12 tablet by ity of estradiol 00:00: 00:00 mouth [place] (ORTHO 00 :00 daily. [facility], 28,) 0.18/0.215/ 0.25 mg-25 mcg tablet norgestimat 2020-0 Yes [id number] 1{tbl} Take 1 Univers e-ethinyl 6-25 tablet by ity o f estradiol 00:00: mouth [place] (ORTHO 00 daily. [facility], 28,) 0.18/0.215/ 0.25 mg-25 mcg tablet norgestimat 2020-0 Yes [id number] 1{tbl} Take 1 Univers e-ethinyl 6-25 tablet by ity o f estradiol 00:00: mouth [place] ([facility] 00 [facility]. [facility] 0.18/0.215/ 0.25 mg-25 mcg tablet norgestimat 2020-0 Yes [id number] 1{tbl} Take 1 Univers e-ethinyl 6-25 tablet by ity o f estradiol 00:00: mouth [place] ([facility] 00 [facility]. [facility] 0.18/0.215/ 0.25 mg-25 mcg tablet norgestimat 2020-0 2020- No [id number] 1{tbl} Take 1 Univers e-ethinyl 6-25 07-17 tablet by ity of estradiol 00:00: 00:00 mouth [place] (ORTHO 00 :00 daily. Medical TRI-CYCLEN [place], 28,) 0.18/0.215/ 0.25 mg-25 mcg tablet hydroCHLORO 2018- Yes [id number] 25mg Take 1 [facility]-24 tablet by [facility] mg tablet 00:00: mouth [place] 00 every Medical morning. [place] [facility]O 2018- Yes [id number] 25mg Take 1 [facility] thiazide 25 7-24 tablet by [facility] mg tablet 00:00: mouth [place] 00 every Medical morning. [place] hydroCHL[facility] Yes [id number] 25mg Take 1 [facility] thiazide 25 7-24 tablet by [facility] mg tablet 00:00: mouth [place] 00 every Medical morning. [place] [facility] Yes [id number] 25mg Take 1 [facility] thiazide 25 7-24 tablet by [facility] mg tablet 00:00: mouth [place] 00 every Medical morning. [place] [facility] Yes [id number] 25mg Take 1 [facility] thiazide 25 7-24 tablet by [facility] mg tablet 00:00: mouth [place] 00 every Medical morning. [place] [facility] Yes [id number] 25mg Take 1 [facility] thiazide 25 7-24 tablet by [facility] mg tablet 00:00: mouth [place] 00 every Medical morning. [place] [facility] 2020- No [id number] 25mg Take 1 [facility] thiazide 25 7-24 08-12 tablet by it y of mg tablet 00:00: 00:00 mouth [place] 00 :00 every Medical morning. [place] Immunizations Ordered Filled Date Status Comments Source Immunization Name Immunization Name SARS-COV-2 COVID-19 2022-04-14 Completed [facility] 00:00:00 [place] [facility] VACCINE (DAY TOP) [place] SARS-COV-2 COVID-19 2022-04-14 Completed [facility] 00:00:00 [place] [facility] VACCINE (DAY TOP) [place] SARS-COV-2 COVID-19 2022-04-14 Completed [facility]CR[facility] 00:00:00 [place] [facility] VACCINE (DAY TOP) [place] SARS-COV-2 COVID-19 2022-04-14 Completed [facility]CR[facility] 00:00:00 [place] [facility] VACCINE (DAY TOP) Branch SARS-COV-2 COVID-19 2022-04-14 Completed [facility]CROSE 00:00:00 [place] [facility] VACCINE (DAY TOP) Branch SARS-COV-2 COVID-19 2022-04-14 Completed [facility]CR[facility] 00:00:00 [place] [facility] VACCINE (DAY TOP) Branch SARS-COV-2 COVID-19 2022-04-14 Completed [facility]CROSE 00:00:00 [place] [facility] VACCINE (DAY TOP) Branch SARS-COV-2 COVID-19 2022-04-14 Completed [facility]CR[facility] 00:00:00 [place] [facility] VACCINE (DAY TOP) Branch SARS-COV-2 COVID-19 2022-04-14 Completed [facility]CR[facility] 00:00:00 [place] [facility] VACCINE (DAY TOP) Branch SARS-COV-2 COVID-19 2022-04-14 Completed [facility]CR[facility] 00:00:00 [place] [facility] VACCINE (DAY TOP) Branch SARS-COV-2 COVID-19 2022-04-14 Completed [facility]CR[facility] 00:00:00 [place] [facility] VACCINE (DAY TOP) Branch SARS-COV-2 COVID-19 2022-04-14 Completed [facility]CROSE 00:00:00 [place] [facility] VACCINE (DAY TOP) Branch SARS-COV-2 COVID-19 2022-04-14 Completed [facility]CR[facility] 00:00:00 [place] [facility] VACCINE (DAY TOP) Branch SARS-COV-2 COVID-19 2022-04-14 Completed [facility]SUCROSE 00:00:00 [place] [facility] VACCINE (DAY TOP) Branch SARS-COV-2 COVID-19 2022-04-14 Completed [facility]CROSE 00:00:00 [place] [facility] VACCINE (DAY TOP) Branch SARS-COV-2 COVID-19 2022-04-14 Completed [facility]CROSE 00:00:00 [place] [facility] VACCINE (DAY TOP) Branch SARS-COV-2 COVID-19 2022-04-14 Completed [facility]CR[facility] 00:00:00 [place] [facility] VACCINE (DAY TOP) Branch SARS-COV-2 COVID-19 2022-04-14 Completed [facility] P[facility]SUCROSE 00:00:00 [place] [facility] VACCINE (DAY TOP) Branch SARS-COV-2 COVID-19 2022-04-14 Completed [facility]CROSE 00:00:00 [place] [facility] VACCINE (DAY TOP) Branch SARS-COV-2 COVID-19 2022-04-14 Completed [facility]CROSE 00:00:00 [place] [facility] VACCINE (DAY TOP) Branch SARS-COV-2 COVID-19 2022-04-14 Completed [facility]CROSE 00:00:00 [place] [facility] VACCINE (DAY TOP) Branch SARS-COV-2 COVID-19 2022-04-14 Completed [facility]CROSE 00:00:00 [place] [facility] VACCINE (DAY TOP) Branch SARS-COV-2 COVID-19 2022-04-14 Completed [facility]SUCROSE 00:00:00 [place] [facility] VACCINE (DAY TOP) Branch SARS-COV-2 COVID-19 2022-04-14 Completed [facility]CR[facility] 00:00:00 [place] [facility] VACCINE (DAY TOP) Branch SARS-COV-2 COVID-19 2022-04-14 Completed [facility]CR[facility] 00:00:00 [place] [facility] VACCINE (DAY TOP) Branch SARS-COV-2 COVID-19 2022-04-14 Completed [facility]CROSE 00:00:00 [place] [facility] VACCINE (DAY TOP) Branch SARS-COV-2 COVID-19 2022-04-14 Completed [facility]CROSE 00:00:00 [place] [facility] VACCINE (DAY TOP) Branch SARS-COV-2 COVID-19 2022-04-14 Completed [facility] P[facility] D[facility]SUCROSE 00:00:00 [place] [facility] VACCINE (DAY TOP) Branch SARS-COV-2 COVID-19 2022-04-14 Completed [facility]CROSE 00:00:00 [place] [facility] VACCINE (DAY TOP) Branch SARS-COV-2 COVID-19 2022-04-14 Completed [facility] D[facility]CROSE 00:00:00 [place] [facility] VACCINE (DAY TOP) Branch SARS-COV-2 COVID-19 2022-04-14 Completed [facility]CROSE 00:00:00 [place] [facility] VACCINE (DAY TOP) Branch SARS-COV-2 COVID-19 2022-04-14 Completed [facility] P[facility] D[facility]SUCROSE 00:00:00 [place] [facility] VACCINE (DAY TOP) Branch SARS-COV-2 COVID-19 2022-04-14 Completed [facility] D[facility]CROSE 00:00:00 [place] [facility] VACCINE (DAY TOP) Branch SARS-COV-2 COVID-19 2022-04-14 Completed [facility] P[facility] D[facility]SUCROSE 00:00:00 [place] [facility] VACCINE (DAY TOP) Branch SARS-COV-2 COVID-19 2022-04-14 Completed [facility]CR[facility] 00:00:00 [place] [facility] VACCINE (DAY TOP) Branch SARS-COV-2 COVID-19 2022-04-14 Completed [facility]CR[facility] 00:00:00 [place] [facility] VACCINE (DAY TOP) Branch SARS-COV-2 COVID-19 2022-04-14 Completed [facility]CR[facility] 00:00:00 [place] [facility] VACCINE (DAY TOP) Branch SARS-COV-2 COVID-19 2022-04-14 Completed [facility] D[facility]CR[facility] 00:00:00 [place] [facility] VACCINE (DAY TOP) Branch SARS-COV-2 COVID-19 2022-04-14 Completed [facility]CR[facility] 00:00:00 [place] [facility] VACCINE (DAY TOP) Branch SARS-COV-2 COVID-19 2022-04-14 Completed [facility] 00:00:00 [place] [facility] VACCINE (DAY TOP) Branch SARS-COV-2 COVID-19 2022-04-14 Completed [facility] 00:00:00 [place] [facility] VACCINE (DAY TOP) Branch SARS-COV-2 COVID-19 2022-04-14 Completed [facility]CR[facility] 00:00:00 [place] [facility] VACCINE (DAY TOP) Branch SARS-COV-2 COVID-19 2022-04-14 Completed [facility]CR[facility] 00:00:00 [place] [facility] VACCINE (DAY TOP) Branch SARS-COV-2 COVID-19 2022-04-14 Completed [facility] 00:00:00 [place] [facility] VACCINE (DAY TOP) Branch SARS-COV-2 COVID-19 2022-04-14 Completed [facility]CR[facility] 00:00:00 [place] [facility] VACCINE (DAY TOP) Branch SARS-COV-2 COVID-19 2022-04-14 Completed [facility]CR[facility] 00:00:00 [place] [facility] VACCINE (DAY TOP) Branch SARS-COV-2 COVID-19 2022-04-14 Completed [facility] 00:00:00 [place] [facility] VACCINE (DAY TOP) Branch SARS-COV-2 COVID-19 2022-04-14 Completed [facility]CR[facility] 00:00:00 [place] [facility] VACCINE (DAY TOP) Branch SARS-COV-2 COVID-19 2022-04-14 Completed [facility]CR[facility] 00:00:00 [place] [facility] VACCINE (DAY TOP) Branch SARS-COV-2 COVID-19 2022-04-14 Completed [facility] 00:00:00 [place] [facility] VACCINE (DAY TOP) Branch SARS-COV-2 COVID-19 2022-04-14 Completed [facility] 00:00:00 [place] [facility] VACCINE (DAY TOP) Branch SARS-COV-2 COVID-19 2022-04-14 Completed [facility] 00:00:00 [place] [facility] VACCINE (DAY TOP) Branch SARS-COV-2 COVID-19 2022-04-14 Completed [facility]CROSE 00:00:00 [place] [facility] VACCINE (DAY TOP) Branch SARS-COV-2 COVID-19 2022-04-14 Completed [facility] D[facility]CROSE 00:00:00 [place] [facility] VACCINE (DAY TOP) Branch SARS-COV-2 COVID-19 2022-04-14 Completed [facility] D[facility]CROSE 00:00:00 [place] [facility] VACCINE (DAY TOP) Branch SARS-COV-2 COVID-19 2022-04-14 Completed [facility] D[facility]CROSE 00:00:00 [place] [facility] VACCINE (DAY TOP) Branch SARS-COV-2 COVID-19 2022-03-24 Completed [facility] D[facility]CROSE 00:00:00 [place] [facility] VACCINE (DAY TOP) Branch SARS-COV-2 COVID-19 2022-03-24 Completed [facility]CROSE 00:00:00 [place] [facility] VACCINE (DAY TOP) Branch SARS-COV-2 COVID-19 2022-03-24 Completed [facility] P[facility] D[facility]SUCROSE 00:00:00 [place] [facility] VACCINE (DAY TOP) Branch SARS-COV-2 COVID-19 2022-03-24 Completed [facility] P[facility] D[facility]SUCROSE 00:00:00 [place] [facility] VACCINE (DAY TOP) Branch SARS-COV-2 COVID-19 2022-03-24 Completed [facility] P[facility] D-SUCROSE 00:00:00 [place] [facility] VACCINE (DAY TOP) Branch SARS-COV-2 COVID-19 2022-03-24 Completed [facility] P[facility] D[facility]SUCROSE 00:00:00 [place] [facility] VACCINE (DAY TOP) Branch SARS-COV-2 COVID-19 2022-03-24 Completed [facility] P[facility] D[facility]SUCROSE 00:00:00 [place] [facility] VACCINE (DAY TOP) Branch SARS-COV-2 COVID-19 2022-03-24 Completed [facility] P[facility] D[facility]SUCROSE 00:00:00 [place] [facility] VACCINE (DAY TOP) Branch SARS-COV-2 COVID-19 2022-03-24 Completed [facility] P[facility]ER [facility] D-SUCROSE 00:00:00 [place] [facility] VACCINE (DAY TOP) Branch SARS-COV-2 COVID-19 2022-03-24 Completed [facility] PFI[facility]ER [facility] D-SUCROSE 00:00:00 [place] [facility] VACCINE (DAY TOP) Branch SARS-COV-2 COVID-19 2022-03-24 Completed [facility] P[facility] D-SUCROSE 00:00:00 [place] [facility] VACCINE (DAY TOP) Branch SARS-COV-2 COVID-19 2022-03-24 Completed [facility] P[facility] D-SUCROSE 00:00:00 [place] [facility] VACCINE (DAY TOP) Branch SARS-COV-2 COVID-19 2022-03-24 Completed [facility] PFI[facility]ER [facility] D-SUCROSE 00:00:00 [place] [facility] VACCINE (DAY TOP) Branch SARS-COV-2 COVID-19 2022-03-24 Completed [facility] P[facility]ER [facility] D-SUCROSE 00:00:00 [place] [facility] VACCINE (DAY TOP) Branch SARS-COV-2 COVID-19 2022-03-24 Completed [facility] P[facility] D-SUCROSE 00:00:00 [place] [facility] VACCINE (DAY TOP) Branch SARS-COV-2 COVID-19 2022-03-24 Completed [facility] P[facility] D-SUCROSE 00:00:00 [place] [facility] VACCINE (DAY TOP) Branch SARS-COV-2 COVID-19 2022-03-24 Completed [facility] P[facility] D-SUCROSE 00:00:00 [place] [facility] VACCINE (DAY TOP) Branch SARS-COV-2 COVID-19 2022-03-24 Completed [facility] P[facility] D[facility]SUCROSE 00:00:00 [place] [facility] VACCINE (DAY TOP) Branch SARS-COV-2 COVID-19 2022-03-24 Completed [facility] P[facility] D[facility]SUCROSE 00:00:00 [place] [facility] VACCINE (DAY TOP) Branch SARS-COV-2 COVID-19 2022-03-24 Completed [facility] P[facility] D-SUCROSE 00:00:00 [place] [facility] VACCINE (DAY TOP) Branch SARS-COV-2 COVID-19 2022-03-24 Completed [facility] P[facility]ER [facility] D-SUCROSE 00:00:00 [place] [facility] VACCINE (DAY TOP) Branch SARS-COV-2 COVID-19 2022-03-24 Completed [facility] P[facility] D[facility]SUCROSE 00:00:00 [place] [facility] VACCINE (DAY TOP) Branch SARS-COV-2 COVID-19 2022-03-24 Completed [facility] P[facility] D-SUCROSE 00:00:00 [place] [facility] VACCINE (DAY TOP) Branch SARS-COV-2 COVID-19 2022-03-24 Completed [facility] P[facility]ER [facility] D-SUCROSE 00:00:00 [place] [facility] VACCINE (DAY TOP) Branch SARS-COV-2 COVID-19 2022-03-24 Completed [facility] P[facility] D-SUCROSE 00:00:00 [place] [facility] VACCINE (DAY TOP) Branch SARS-COV-2 COVID-19 2022-03-24 Completed [facility] P[facility]ER [facility] D-SUCROSE 00:00:00 [place] [facility] VACCINE (DAY TOP) Branch SARS-COV-2 COVID-19 2022-03-24 Completed [facility] P[facility] D-SUCROSE 00:00:00 [place] [facility] VACCINE (DAY TOP) Branch SARS-COV-2 COVID-19 2022-03-24 Completed [facility] P[facility]ER [facility] D-SUCROSE 00:00:00 [place] [facility] VACCINE (DAY TOP) Branch SARS-COV-2 COVID-19 2022-03-24 Completed [facility] P[facility]ER [facility] D-SUCROSE 00:00:00 [place] [facility] VACCINE (DAY TOP) Branch SARS-COV-2 COVID-19 2022-03-24 Completed [facility] P[facility]ER [facility] D-SUCROSE 00:00:00 [place] [facility] VACCINE (DAY TOP) Branch SARS-COV-2 COVID-19 2022-03-24 Completed [facility] P[facility]ER [facility] D-SUCROSE 00:00:00 [place] [facility] VACCINE (DAY TOP) Branch SARS-COV-2 COVID-19 2022-03-24 Completed [facility] P[facility]ER [facility] D-SUCROSE 00:00:00 [place] [facility] VACCINE (DAY TOP) Branch SARS-COV-2 COVID-19 2022-03-24 Completed [facility] P[facility]ER [facility] D-SUCROSE 00:00:00 [place] [facility] VACCINE (DAY TOP) Branch SARS-COV-2 COVID-19 2022-03-24 Completed [facility] PFI[facility]ER [facility] D-SUCROSE 00:00:00 [place] [facility] VACCINE (DAY TOP) Branch SARS-COV-2 COVID-19 2022-03-24 Completed [facility] P[facility]ER [facility] D-SUCROSE 00:00:00 [place] [facility] VACCINE (DAY TOP) Branch SARS-COV-2 COVID-19 2022-03-24 Completed [facility] P[facility]ER [facility] D-SUCROSE 00:00:00 [place] [facility] VACCINE (DAY TOP) Branch SARS-COV-2 COVID-19 2022-03-24 Completed [facility] PFIZER [facility] D-SUCROSE 00:00:00 [place] [facility] VACCINE (DAY TOP) Branch SARS-COV-2 COVID-19 2022-03-24 Completed [facility] P[facility]ZER [facility] D-SUCROSE 00:00:00 [place] [facility] VACCINE (DAY TOP) Branch SARS-COV-2 COVID-19 2022-03-24 Completed [facility] P[facility]ER [facility] D-SUCROSE 00:00:00 [place] [facility] VACCINE (DAY TOP) Branch SARS-COV-2 COVID-19 2022-03-24 Completed [facility] P[facility]ER [facility] D-SUCROSE 00:00:00 [place] [facility] VACCINE (DAY TOP) Branch SARS-COV-2 COVID-19 2022-03-24 Completed [facility] P[facility]ER [facility] D-SUCROSE 00:00:00 [place] [facility] VACCINE (DAY TOP) Branch SARS-COV-2 COVID-19 2022-03-24 Completed [facility] P[facility]ER [facility] D-SUCROSE 00:00:00 [place] [facility] VACCINE (DAY TOP) Branch SARS-COV-2 COVID-19 2022-03-24 Completed [facility] P[facility]ZER [facility] D-SUCROSE 00:00:00 [place] [facility] VACCINE (DAY TOP) Branch SARS-COV-2 COVID-19 2022-03-24 Completed [facility] PFIZER [facility] D-SUCROSE 00:00:00 [place] [facility] VACCINE (DAY TOP) Branch SARS-COV-2 COVID-19 2022-03-24 Completed [facility] PFIZER [facility] D-SUCROSE 00:00:00 [place] [facility] VACCINE (DAY TOP) Branch SARS-COV-2 COVID-19 2022-03-24 Completed [facility] P[facility]ER [facility] D-SUCROSE 00:00:00 [place] [facility] VACCINE (DAY TOP) Branch SARS-COV-2 COVID-19 2022-03-24 Completed [facility] PFIZER [facility] D-SUCROSE 00:00:00 [place] [facility] VACCINE (DAY TOP) Branch SARS-COV-2 COVID-19 2022-03-24 Completed [facility] PFIZER MAR[facility] D-SUCROSE 00:00:00 [place] [facility] VACCINE (DAY TOP) Branch SARS-COV-2 COVID-19 2022-03-24 Completed [facility] P[facility]ZER [facility] D-SUCROSE 00:00:00 [place] [facility] VACCINE (DAY TOP) Branch SARS-COV-2 COVID-19 2022-03-24 Completed [facility] P[facility]ER [facility] D-SUCROSE 00:00:00 [place] [facility] VACCINE (DAY TOP) Branch SARS-COV-2 COVID-19 2022-03-24 Completed [facility] PFI[facility]ER [facility] D-SUCROSE 00:00:00 [place] [facility] VACCINE (DAY TOP) Branch SARS-COV-2 COVID-19 2022-03-24 Completed [facility] P[facility]ER [facility] D-SUCROSE 00:00:00 [place] [facility] VACCINE (DAY TOP) Branch SARS-COV-2 COVID-19 2022-03-24 Completed [facility] P[facility]ER [facility] D-SUCROSE 00:00:00 [place] [facility] VACCINE (DAY TOP) Branch SARS-COV-2 COVID-19 2022-03-24 Completed [facility] P[facility]ER [facility] D-SUCROSE 00:00:00 [place] [facility] VACCINE (DAY TOP) Branch SARS-COV-2 COVID-19 2022-03-24 Completed [facility] P[facility]ER [facility] D-SUCROSE 00:00:00 [place] [facility] VACCINE (DAY TOP) Branch SARS-COV-2 COVID-19 2022-03-24 Completed [facility] P[facility]ER [facility] D-SUCROSE 00:00:00 [place] [facility] VACCINE (DAY TOP) Branch SARS-COV-2 COVID-19 2022-03-24 Completed [facility] P[facility] D[facility]CR[facility] 00:00:00 [place] [facility] VACCINE (DAY TOP) Branch TDAP (ADACEL) 2016-08-13 Completed [facility] VACCINE 00:00:00 [facility] TDAP (ADACEL) 2016-08-13 Completed [facility] of VACCINE 00:00:00 [facility] TDAP (ADACEL) 2016-08-13 Completed [facility] of VACCINE 00:00:00 [facility] TDAP (ADACEL) 2016-08-13 Completed [facility] of VACCINE 00:00:00 [facility] TDAP (ADACEL) 2016-08-13 Completed [facility] of VACCINE 00:00:00 [facility] TDAP (ADACEL) 2016-08-13 Completed [facility] of VACCINE 00:00:00 [facility] TDAP (ADACEL) 2016-08-13 Completed [facility] of VACCINE 00:00:00 [facility] TDAP (ADACEL) 2016-08-13 Completed [facility] of VACCINE 00:00:00 [facility] TDAP (ADACEL) 2016-08-13 Completed [facility] of VACCINE 00:00:00 [facility] TDAP (ADACEL) 2016-08-13 Completed [facility] VACCINE 00:00:00 [facility] TDAP (ADACEL) 2016-08-13 Completed [facility] of VACCINE 00:00:00 [facility] TDAP (ADACEL) 2016-08-13 Completed [facility] of VACCINE 00:00:00 [facility] TDAP (ADACEL) 2016-08-13 Completed [facility] VACCINE 00:00:00 [facility] TDAP (ADACEL) 2016-08-13 Completed [facility] VACCINE 00:00:00 [facility] TDAP (ADACEL) 2016-08-13 Completed [facility] VACCINE 00:00:00 [place] [facility] TDAP (ADACEL) 2016-08-13 Completed [facility] VACCINE 00:00:00 [facility] TDAP (ADACEL) 2016-08-13 Completed [facility] VACCINE 00:00:00 [place] [facility] TDAP (ADACEL) 2016-08-13 Completed [facility] VACCINE 00:00:00 [facility] TDAP (ADACEL) 2016-08-13 Completed [facility] VACCINE 00:00:00 [facility] TDAP (ADACEL) 2016-08-13 Completed [facility] VACCINE 00:00:00 [facility] TDAP (ADACEL) 2016-08-13 Completed [facility] VACCINE 00:00:00 [facility] TDAP (ADACEL) 2016-08-13 Completed [facility] VACCINE 00:00:00 [facility] TDAP (ADACEL) 2016-08-13 Completed [facility] of VACCINE 00:00:00 [facility] TDAP (ADACEL) 2016-08-13 Completed [facility] VACCINE 00:00:00 [facility] TDAP (ADACEL) 2016-08-13 Completed [facility] VACCINE 00:00:00 [facility] TDAP (ADACEL) 2016-08-13 Completed [facility] VACCINE 00:00:00 [facility] TDAP (ADACEL) 2016-08-13 Completed [facility] VACCINE 00:00:00 [facility] TDAP (ADACEL) 2016-08-13 Completed [facility] VACCINE 00:00:00 [facility] TDAP (ADACEL) 2016-08-13 Completed [facility] VACCINE 00:00:00 [facility] TDAP (ADACEL) 2016-08-13 Completed [facility] of VACCINE 00:00:00 [facility] TDAP (ADACEL) 2016-08-13 Completed [facility] VACCINE 00:00:00 [facility] TDAP (ADACEL) 2016-08-13 Completed [facility] of VACCINE 00:00:00 [facility] TDAP (ADACEL) 2016-08-13 Completed [facility] of VACCINE 00:00:00 [facility] TDAP (ADACEL) 2016-08-13 Completed [facility] VACCINE 00:00:00 [facility] TDAP (ADACEL) 2016-08-13 Completed [facility] of VACCINE 00:00:00 [facility] TDAP (ADACEL) 2016-08-13 Completed [facility] of VACCINE 00:00:00 [facility] TDAP (ADACEL) 2016-08-13 Completed [facility] of VACCINE 00:00:00 [facility] TDAP (ADACEL) 2016-08-13 Completed [facility] of VACCINE 00:00:00 [facility] TDAP (ADACEL) 2016-08-13 Completed [facility] of VACCINE 00:00:00 [facility] TDAP (ADACEL) 2016-08-13 Completed [facility] of VACCINE 00:00:00 [facility] TDAP (ADACEL) 2016-08-13 Completed [facility] of VACCINE 00:00:00 [facility] TDAP (ADACEL) 2016-08-13 Completed [facility] of VACCINE 00:00:00 [facility] TDAP (ADACEL) 2016-08-13 Completed [facility] of VACCINE 00:00:00 [facility] TDAP (ADACEL) 2016-08-13 Completed [facility] of VACCINE 00:00:00 [facility] TDAP (ADACEL) 2016-08-13 Completed [facility] of VACCINE 00:00:00 [facility] TDAP (ADACEL) 2016-08-13 Completed [facility] of VACCINE 00:00:00 [facility] TDAP (ADACEL) 2016-08-13 Completed [facility] of VACCINE 00:00:00 [facility] TDAP (ADACEL) 2016-08-13 Completed [facility] of VACCINE 00:00:00 [facility] TDAP (ADACEL) 2016-08-13 Completed [facility] of VACCINE 00:00:00 [facility] TDAP (ADACEL) 2016-08-13 Completed [facility] of VACCINE 00:00:00 [facility] TDAP (ADACEL) 2016-08-13 Completed [facility] of VACCINE 00:00:00 [facility] TDAP (ADACEL) 2016-08-13 Completed [facility] of VACCINE 00:00:00 [facility] TDAP (ADACEL) 2016-08-13 Completed [facility] of VACCINE 00:00:00 [facility] TDAP (ADACEL) 2016-08-13 Completed [facility] of VACCINE 00:00:00 [facility] TDAP (ADACEL) 2016-08-13 Completed [facility] of VACCINE 00:00:00 [facility] TDAP (ADACEL) 2016-08-13 Completed [facility] of VACCINE 00:00:00 [facility] TDAP (ADACEL) 2016-08-13 Completed [facility] of VACCINE 00:00:00 [facility] TDAP (ADACEL) 2016-08-13 Completed [facility] of VACCINE 00:00:00 [facility] TDAP (ADACEL) 2016-08-13 Completed [facility] of VACCINE 00:00:00 [facility] TDAP (ADACEL) 2016-08-13 Completed [facility] VACCINE 00:00:00 [facility] TDAP (ADACEL) 2016-08-13 Completed [facility] VACCINE 00:00:00 [facility] TDAP (ADACEL) 2016-08-13 Completed [facility] VACCINE 00:00:00 [facility] TDAP (ADACEL) 2016-08-13 Completed [facility] VACCINE 00:00:00 [facility] TDAP (ADACEL) 2016-08-13 Completed [facility] VACCINE 00:00:00 [facility] TDAP (ADACEL) 2016-08-13 Completed [facility] VACCINE 00:00:00 [facility] TDAP (ADACEL) 2016-08-13 Completed [facility] VACCINE 00:00:00 [facility] TDAP (ADACEL) 2016-08-13 Completed [facility] VACCINE 00:00:00 [facility] TDAP (ADACEL) 2016-08-13 Completed [facility] of VACCINE 00:00:00 [facility] TDAP (ADACEL) 2016-08-13 Completed [facility] of VACCINE 00:00:00 [facility] TDAP (ADACEL) 2016-08-13 Completed [facility] of VACCINE 00:00:00 [facility] TDAP (ADACEL) 2016-08-13 Completed [facility] of VACCINE 00:00:00 [facility] TDAP (ADACEL) 2016-08-13 Completed [facility] of VACCINE 00:00:00 [facility] TDAP (ADACEL) 2016-08-13 Completed [facility] of VACCINE 00:00:00 [facility] Rubella 2012-01-12 Completed University of 00:00:00 [facility] Rubella 2012-01-12 Completed [facility] of 00:00:00 [facility] Rubella 2012-01-12 Completed [facility] of 00:00:00 [facility] Rubella 2012-01-12 Completed [facility] of 00:00:00 [facility] Rubella 2012-01-12 Completed [facility] of 00:00:00 [facility] Rubella 2012-01-12 Completed [facility] of 00:00:00 [facility] Rubella 2012-01-12 Completed [facility] of 00:00:00 [facility] Rubella 2012-01-12 Completed [facility] of 00:00:00 [facility] Rubella 2012-01-12 Completed [facility] of 00:00:00 [facility] Rubella 2012-01-12 Completed [facility] of 00:00:00 [facility] Rubella 2012-01-12 Completed University of 00:00:00 [facility] Rubella 2012-01-12 Completed [facility] 00:00:00 [facility] Rubella 2012-01-12 Completed [facility] 00:00:00 [facility] Rubella 2012-01-12 Completed [facility] 00:00:00 [facility] Rubella 2012-01-12 Completed [facility] 00:00:00 [facility] Rubella 2012-01-12 Completed [facility] 00:00:00 [facility] Rubella 2012-01-12 Completed [facility] 00:00:00 [facility] Rubella 2012-01-12 Completed [facility] 00:00:00 [facility] Rubella 2012-01-12 Completed [facility] 00:00:00 [facility] Rubella 2012-01-12 Completed [facility] 00:00:00 [facility] Rubella 2012-01-12 Completed [facility] 00:00:00 [facility] Rubella 2012-01-12 Completed [facility] 00:00:00 [facility] Rubella 2012-01-12 Completed [facility] 00:00:00 [facility] Rubella 2012-01-12 Completed [facility] 00:00:00 [facility] Rubella 2012-01-12 Completed [facility] 00:00:00 [facility] Rubella 2012-01-12 Completed [facility] 00:00:00 [facility] Rubella 2012-01-12 Completed [facility] 00:00:00 [facility] Rubella 2012-01-12 Completed [facility] 00:00:00 [facility] Rubella 2012-01-12 Completed [facility] 00:00:00 [facility] Rubella 2012-01-12 Completed [facility] 00:00:00 [facility] Rubella 2012-01-12 Completed [facility] 00:00:00 [facility] Rubella 2012-01-12 Completed [facility] 00:00:00 [facility] Rubella 2012-01-12 Completed [facility] 00:00:00 [facility] Rubella 2012-01-12 Completed [facility] 00:00:00 [facility] Rubella 2012-01-12 Completed [facility] 00:00:00 [facility] Rubella 2012-01-12 Completed [facility] 00:00:00 [facility] Rubella 2012-01-12 Completed [facility] 00:00:00 [facility] Rubella 2012-01-12 Completed [facility] 00:00:00 [facility] Rubella 2012-01-12 Completed [facility] 00:00:00 [facility] Rubella 2012-01-12 Completed [facility] 00:00:00 [facility] Rubella 2012-01-12 Completed [facility] 00:00:00 [facility] Rubella 2012-01-12 Completed [facility] 00:00:00 [facility] Rubella 2012-01-12 Completed [facility] 00:00:00 [facility] Rubella 2012-01-12 Completed [facility] 00:00:00 [facility] Rubella 2012-01-12 Completed [facility] 00:00:00 [facility] Rubella 2012-01-12 Completed [facility] 00:00:00 [facility] Rubella 2012-01-12 Completed [facility] 00:00:00 [facility] Rubella 2012-01-12 Completed [facility] 00:00:00 [facility] Rubella 2012-01-12 Completed [facility] 00:00:00 [facility] Rubella 2012-01-12 Completed [facility] 00:00:00 [facility] Rubella 2012-01-12 Completed [facility] 00:00:00 [facility] Rubella 2012-01-12 Completed [facility] 00:00:00 [facility] Rubella 2012-01-12 Completed [facility] 00:00:00 [facility] Rubella 2012-01-12 Completed [facility] 00:00:00 [facility] Rubella 2012-01-12 Completed [facility] 00:00:00 [facility] Rubella 2012-01-12 Completed [facility] 00:00:00 [facility] Rubella 2012-01-12 Completed [facility] 00:00:00 [facility] Rubella 2012-01-12 Completed [facility] 00:00:00 [facility] Rubella 2012-01-12 Completed [facility] 00:00:00 [facility] Rubella 2012-01-12 Completed [facility] 00:00:00 [facility] Rubella 2012-01-12 Completed [facility] 00:00:00 [facility] Rubella 2012-01-12 Completed [facility] 00:00:00 [facility] Rubella 2012-01-12 Completed [facility] 00:00:00 [facility] Rubella 2012-01-12 Completed [facility] 00:00:00 [facility] Rubella 2012-01-12 Completed [facility] 00:00:00 [facility] Rubella 2012-01-12 Completed [facility] 00:00:00 [facility] Rubella 2012-01-12 Completed [facility] 00:00:00 [facility] Rubella 2012-01-12 Completed [facility] 00:00:00 [facility] Rubella 2012-01-12 Completed [facility] 00:00:00 [facility] Rubella 2012-01-12 Completed [facility] 00:00:00 [facility] Rubella 2012-01-12 Completed [facility] 00:00:00 [facility] Rubella 2012-01-12 Completed [facility] 00:00:00 [facility] Rubella 2012-01-12 Completed [facility] 00:00:00 [facility] TD, NOS 2005-02-13 Completed [facility] 00:00:00 [facility] TD, NOS 2005-02-13 Completed [facility] 00:00:00 [facility] TD, NOS 2005-02-13 Completed [facility] 00:00:00 [facility] TD, NOS 2005-02-13 Completed [facility] 00:00:00 [facility] TD, NOS 2005-02-13 Completed [facility] 00:00:00 [facility] TD, NOS 2005-02-13 Completed [facility] 00:00:00 [facility] TD, NOS 2005-02-13 Completed [facility] 00:00:00 [facility] TD, NOS 2005-02-13 Completed [facility] 00:00:00 [facility] Td 2005-02-13 Completed [facility] 00:00:00 [facility] TD, NOS 2005-02-13 Completed [facility] 00:00:00 [facility] TD, NOS 2005-02-13 Completed [facility] 00:00:00 [facility] TD, NOS 2005-02-13 Completed [facility] 00:00:00 [facility] Td 2005-02-13 Completed [facility] 00:00:00 [facility] TD, NOS 2005-02-13 Completed [facility] 00:00:00 [facility] TD, NOS 2005-02-13 Completed [facility] 00:00:00 [facility] TD, NOS 2005-02-13 Completed [facility] 00:00:00 [facility] TD, NOS 2005-02-13 Completed [facility] 00:00:00 [facility] Td 2005-02-13 Completed [facility] 00:00:00 [facility] TD, NOS 2005-02-13 Completed [facility] 00:00:00 [facility] Td 2005-02-13 Completed [facility] 00:00:00 [facility] Td 2005-02-13 Completed [facility] 00:00:00 [facility] Td 2005-02-13 Completed [facility] 00:00:00 [facility] Td 2005-02-13 Completed [facility] 00:00:00 [facility] Td 2005-02-13 Completed [facility] 00:00:00 [facility] Td 2005-02-13 Completed [facility] 00:00:00 [facility] TD, NOS 2005-02-13 Completed [facility] 00:00:00 [facility] TD, NOS 2005-02-13 Completed [facility] 00:00:00 [facility] TD, NOS 2005-02-13 Completed [facility] 00:00:00 [facility] TD, NOS 2005-02-13 Completed [facility] 00:00:00 [facility] TD, NOS 2005-02-13 Completed [facility] 00:00:00 [facility] Td 2005-02-13 Completed [facility] 00:00:00 [facility] TD, NOS 2005-02-13 Completed [facility] 00:00:00 [facility] TD, NOS 2005-02-13 Completed [facility] 00:00:00 [facility] TD, NOS 2005-02-13 Completed [facility] 00:00:00 [facility] TD, NOS 2005-02-13 Completed [facility] 00:00:00 [facility] Td 2005-02-13 Completed [facility] 00:00:00 [facility] TD, NOS 2005-02-13 Completed [facility] 00:00:00 [facility] TD, NOS 2005-02-13 Completed [facility] 00:00:00 [facility] TD, NOS 2005-02-13 Completed [facility] 00:00:00 [facility] TD, NOS 2005-02-13 Completed [facility] 00:00:00 [facility] TD, NOS 2005-02-13 Completed [facility] 00:00:00 [facility] TD, NOS 2005-02-13 Completed [facility] 00:00:00 [facility] Td 2005-02-13 Completed [facility] 00:00:00 [facility] TD, NOS 2005-02-13 Completed [facility] 00:00:00 [facility] TD, NOS 2005-02-13 Completed [facility] 00:00:00 [facility] TD, NOS 2005-02-13 Completed [facility] 00:00:00 [facility] TD, NOS 2005-02-13 Completed [facility] 00:00:00 [facility] TD, NOS 2005-02-13 Completed [facility] 00:00:00 [facility] Td 2005-02-13 Completed [facility] 00:00:00 [facility] TD, NOS 2005-02-13 Completed [facility] 00:00:00 [facility] TD, NOS 2005-02-13 Completed [facility] 00:00:00 [facility] TD, NOS 2005-02-13 Completed [facility] 00:00:00 [facility] TD, NOS 2005-02-13 Completed [facility] 00:00:00 [facility] TD, NOS 2005-02-13 Completed [facility] 00:00:00 [facility] TD, NOS 2005-02-13 Completed [facility] 00:00:00 [facility] TD, NOS 2005-02-13 Completed [facility] 00:00:00 [facility] Td 2005-02-13 Completed [facility] 00:00:00 [facility] TD, NOS 2005-02-13 Completed [facility] 00:00:00 [facility] TD, NOS 2005-02-13 Completed [facility] 00:00:00 [facility] TD, NOS 2005-02-13 Completed [facility] 00:00:00 [facility] Td 2005-02-13 Completed [facility] 00:00:00 [facility] TD, NOS 2005-02-13 Completed [facility] 00:00:00 [facility] TD, NOS 2005-02-13 Completed [facility] 00:00:00 [facility] TD, NOS 2005-02-13 Completed [facility] 00:00:00 [facility] TD, NOS 2005-02-13 Completed [facility] 00:00:00 [facility] TD, NOS 2005-02-13 Completed [facility] 00:00:00 [facility] TD, NOS 2005-02-13 Completed [facility] 00:00:00 [facility] TD, NOS 2005-02-13 Completed [facility] 00:00:00 [facility] TD, NOS 2005-02-13 Completed [facility] 00:00:00 [facility] TD, NOS 2005-02-13 Completed [facility] 00:00:00 [facility] Td 2005-02-13 Completed [facility] 00:00:00 [facility] TD, NOS 2005-02-13 Completed [facility] 00:00:00 [facility] TD, NOS 2005-02-13 Completed [facility] 00:00:00 [facility] Rubella Unknown Completed [facility] TD, NOS Unknown Completed [facility] TDAP (ADACEL) Unknown Completed [facility] SARS-COV-2 COVID-19 Unknown Completed Unive rsity of [facility] [facility] [employer] VACCINE (DAY TOP) Branch SARS-COV-2 COVID-19 Unknown Completed Unive rsity of [facility] [facility] [employer] VACCINE (DAY TOP) Branch Rubella Unknown Completed [facility] TD, NOS Unknown Completed [facility] TDAP (ADACEL) Unknown Completed [facility] SARS-COV-2 COVID-19 Unknown Completed Unive rsity of [facility] [facility] [employer] VACCINE (DAY TOP) Branch SARS-COV-2 COVID-19 Unknown Completed Unive rsity of [facility] [facility] VACCINE (DAY TOP) Branch Rubella Unknown Completed [facility] TD, NOS Unknown Completed [facility] TDAP (ADACEL) Unknown Completed [facility] SARS-COV-2 COVID-19 Unknown Completed Unive rsity of [facility] [facility] [employer] VACCINE (DAY TOP) Branch SARS-COV-2 COVID-19 Unknown Completed Unive rsity of [facility] VACCINE (DAY TOP) Branch Rubella Unknown Completed [facility] TD, NOS Unknown Completed [facility] TDAP (ADACEL) Unknown Completed [facility] SARS-COV-2 COVID-19 Unknown Completed Unive rsity of [facility] [facility] [employer] VACCINE (DAY TOP) Branch SARS-COV-2 COVID-19 Unknown Completed [facility]ive rsity of [facility] [facility] [employer] VACCINE (DAY TOP) Branch Influenza Virus Unknown Completed [facility] [place] [facility] Preserv and ABX Branch Free 6 MO-64 YRS (FLUCELVAX) Rubella Unknown Completed [facility] TD, NOS Unknown Completed [facility] TDAP (ADACEL) Unknown Completed [facility] SARS-COV-2 COVID-19 Unknown Completed Unive rsity of P[facility] [facility] [employer] VACCINE (DAY TOP) Branch SARS-COV-2 COVID-19 Unknown Completed Unive rsity of P[facility]ZER [facility] VACCINE (DAY TOP) Branch Influenza Virus Unknown Completed [facility] [place] [facility] Preserv and ABX Branch Free 6 MO-64 YRS (FLUCELVAX) Rubella Unknown Completed [facility] TD, NOS Unknown Completed [facility] TDAP (ADACEL) Unknown Completed [facility] VACCINE [facility] SARS-COV-2 COVID-19 Unknown Completed Unive rsity of PFIZER MARIA D-SUCROSE [facility] VACCINE (DAY TOP) Branch SARS-COV-2 COVID-19 Unknown Completed Unive rsity of PFIZER [facility]IA D[facility]CR[facility] VACCINE (DAY TOP) Branch Influenza Virus Unknown Completed Universit y of Vaccine [facility] , [facility] [place] dical Preserv and ABX Branch Free 6 MO-64 YRS (FLUCELVAX) Vital Signs Vital Name Observation Time Observation Value Comments Source Systolic blood 2022-11-29 20:02:00 148 mm[Hg] Univer sity of [facility] Diastolic blood 2022-11-29 20:02:00 92 mm[Hg] Unive rsity of [facility] Heart rate 2022-11-29 19:47:00 79 /min Universi ty [facility] Respiratory rate 2022-11-29 19:47:00 18 /min Univ ersity of [facility] Body height 2022-11-29 19:47:00 160 cm Universi ty [facility] Body weight 2022-11-29 19:47:00 72.394 kg Universi ty [facility] BMI 2022-11-29 19:47:00 28.27 kg/m2 Universi ty [facility] Oxygen saturation in 2022-11-29 19:47:00 100 /min [facility] Arterial blood by [facility] Pulse oximetry Branch Systolic blood 2022-11-01 15:29:00 127 mm[Hg] Univer sity of pressure [facility] Diastolic blood 2022-11-01 15:29:00 85 mm[Hg] Unive rsity of pressure [facility] Heart rate 2022-11-01 15:29:00 68 /min Universi ty of [facility] Body height 2022-11-01 15:29:00 160 cm Universi ty [facility] Body weight 2022-11-01 15:29:00 72.576 kg Universi ty [facility] BMI 2022-11-01 15:29:00 28.34 kg/m2 [facility] ty [facility] Oxygen saturation in 2022-11-01 15:29:00 100 /min University of Arterial blood by [facility] Pulse oximetry Branch Systolic blood 2022-11-01 15:29:00 127 mm[Hg] Univer sity of pressure [facility] Diastolic blood 2022-11-01 15:29:00 85 mm[Hg] Unive rsity of pressure [facility] Heart rate 2022-11-01 15:29:00 68 /min [facility] ty [facility] Body height 2022-11-01 15:29:00 160 cm [facility] Body weight 2022-11-01 15:29:00 72.576 kg [facility] BMI 2022-11-01 15:29:00 28.34 kg/m2 [facility] Oxygen saturation in 2022-11-01 15:29:00 100 /min University of Arterial blood by [facility] Pulse oximetry Branch Systolic blood 2022-10-17 15:58:00 153 mm[Hg] Univer sity of pressure [facility] Diastolic blood 2022-10-17 15:58:00 95 mm[Hg] Unive rsity of pressure [facility] Heart rate 2022-10-17 15:58:00 76 /min [facility] Body temperature 2022-10-17 15:58:00 36.89 Cheryl [facility] Respiratory rate 2022-10-17 15:58:00 18 /min Univ [facility] Body height 2022-10-17 15:58:00 160 cm [facility] Body weight 2022-10-17 15:58:00 70.308 kg [facility] BMI 2022-10-17 15:58:00 27.46 kg/m2 [facility] Oxygen saturation in 2022-10-17 15:58:00 100 /min University of Arterial blood by [facility] Pulse oximetry Branch Systolic blood 2022-10-15 14:12:00 147 mm[Hg] Univer sity of pressure [facility] Diastolic blood 2022-10-15 14:12:00 113 mm[Hg] Unive rsity of pressure [facility] Heart rate 2022-10-15 14:12:00 91 /min [facility] Body temperature 2022-10-15 14:12:00 36.56 Cheryl [facility] Body weight 2022-10-15 14:12:00 70.308 kg [facility] BMI 2022-10-15 14:12:00 27.46 kg/m2 [facility] Oxygen saturation in 2022-10-15 14:12:00 98 /min University of Arterial blood by [facility] Pulse oximetry Branch Systolic blood 2022-10-13 14:12:00 147 mm[Hg] Univer sity of pressure [facility] Diastolic blood 2022-10-13 14:12:00 91 mm[Hg] Unive rsity of pressure [facility] Heart rate 2022-10-13 14:11:00 76 /min [facility] Body temperature 2022-10-13 14:11:00 36.72 Cheryl [facility] Respiratory rate 2022-10-13 14:11:00 18 /min [facility] Body height 2022-10-13 14:11:00 160 cm [facility] Body weight 2022-10-13 14:11:00 70.761 kg [facility] BMI 2022-10-13 14:11:00 27.63 kg/m2 [facility] Oxygen saturation in 2022-10-13 14:11:00 100 /min University of Arterial blood by [facility] Pulse oximetry Branch Systolic blood 2022-09-23 18:19:00 147 mm[Hg] Univer sity of pressure [facility] Diastolic blood 2022-09-23 18:19:00 86 mm[Hg] Unive rsity of pressure [facility] Heart rate 2022-09-23 18:19:00 67 /min [facility] Oxygen saturation in 2022-09-23 18:19:00 100 /min University of Arterial blood by [facility] Pulse oximetry Branch Body temperature 2022-09-23 18:18:00 37.11 Cheryl [facility] Respiratory rate 2022-09-23 18:18:00 18 /min Univ [facility] Body height 2022-09-23 18:18:00 160 cm [facility] Body weight 2022-09-23 18:18:00 72.848 kg [facility] BMI 2022-09-23 18:18:00 28.45 kg/m2 [facility] Respiratory rate 2022-09-09 18:40:00 17 /min [facility] Heart rate 2022-09-09 18:39:00 72 /min [facility] Oxygen saturation in 2022-09-09 18:39:00 100 /min University of Arterial blood by [facility] Pulse oximetry Branch Systolic blood 2022-09-09 18:35:00 118 mm[Hg] Univer sity of pressure [facility] Diastolic blood 2022-09-09 18:35:00 85 mm[Hg] Unive rsity of pressure [facility] Body temperature 2022-09-09 17:36:00 36.67 Cheryl [facility] Body height 2022-08-26 16:24:00 160 cm [facility] Body weight 2022-08-26 16:24:00 69.4 kg [facility] BMI 2022-08-26 16:24:00 27.11 kg/m2 [facility] Heart rate 2022-09-09 18:24:00 82 /min [facility] Respiratory rate 2022-09-09 18:24:00 12 /min Univ [facility] Oxygen saturation in 2022-09-09 18:24:00 100 /min University of Arterial blood by [facility] Pulse oximetry Branch Systolic blood 2022-09-09 18:21:00 121 mm[Hg] Univer sity of pressure [facility] Diastolic blood 2022-09-09 18:21:00 83 mm[Hg] Unive rsity of pressure [facility] Body temperature 2022-09-09 17:36:00 36.67 Cheryl [facility] Body height 2022-08-26 16:24:00 160 cm [facility] Body weight 2022-08-26 16:24:00 69.4 kg [facility] BMI 2022-08-26 16:24:00 27.11 kg/m2 [facility] Systolic blood 2022-08-15 14:28:00 137 mm[Hg] Univer sity of pressure [facility] Diastolic blood 2022-08-15 14:28:00 96 mm[Hg] Unive rsity of pressure [facility] Heart rate 2022-08-15 14:28:00 75 /min [facility]i ty of [facility] Oxygen saturation in 2022-08-15 14:28:00 100 /min University of Arterial blood by [facility] Pulse oximetry Branch Body temperature 2022-08-15 14:25:00 37.39 Cheryl [facility] Body height 2022-08-15 14:25:00 160 cm [facility] Body weight 2022-08-15 14:25:00 69.4 kg [facility] BMI 2022-08-15 14:25:00 27.10 kg/m2 [facility] Systolic blood 2022-07-22 15:21:00 131 mm[Hg] Univer sity of pressure [facility] Diastolic blood 2022-07-22 15:21:00 93 mm[Hg] Unive rsity of pressure [facility] Heart rate 2022-07-22 15:07:00 75 /min [facility] Body temperature 2022-07-22 15:07:00 36.67 Cheryl [facility] Respiratory rate 2022-07-22 15:07:00 18 /min [facility] Body height 2022-07-22 15:07:00 160 cm [facility] Body weight 2022-07-22 15:07:00 68.947 kg [facility] BMI 2022-07-22 15:07:00 26.93 kg/m2 [facility] Systolic blood 2022-07-20 19:35:00 154 mm[Hg] Univer sity of pressure [facility] Diastolic blood 2022-07-20 19:35:00 97 mm[Hg] Unive rsity of pressure [facility] Heart rate 2022-07-20 19:35:00 80 /min [facility] Body temperature 2022-07-20 19:35:00 36.72 Cheryl [facility] Respiratory rate 2022-07-20 19:35:00 20 /min [facility] Body height 2022-07-20 19:35:00 160 cm [facility] Body weight 2022-07-20 19:35:00 68.493 kg [facility] BMI 2022-07-20 19:35:00 26.75 kg/m2 [facility] Oxygen saturation in 2022-07-20 19:35:00 99 /min University of Arterial blood by [place] [employer] [facility] Pulse oximetry Branch Systolic blood 2022-07-20 18:57:00 138 mm[Hg] Univer sity of pressure [facility] Diastolic blood 2022-07-20 18:57:00 95 mm[Hg] Unive rsity of pressure [facility] Heart rate 2022-07-20 18:54:00 74 /min [facility] Body temperature 2022-07-20 18:54:00 36.61 Cheryl [facility] Respiratory rate 2022-07-20 18:54:00 17 /min [facility] Body height 2022-07-20 18:54:00 160 cm [facility] Body weight 2022-07-20 18:54:00 68.856 kg [facility] BMI 2022-07-20 18:54:00 26.89 kg/m2 [facility] Oxygen saturation in 2022-07-20 18:54:00 100 /min [facility] Arterial blood by [place] [employer] [facility] Pulse oximetry Branch Systolic blood 2022-07-18 16:30:00 126 mm[Hg] Univer sity of pressure [facility] Diastolic blood 2022-07-18 16:30:00 87 mm[Hg] Unive rsity of pressure [facility] Heart rate 2022-07-18 16:30:00 71 /min [facility] Body height 2022-07-18 16:30:00 160 cm [facility] Body weight 2022-07-18 16:30:00 68.04 kg [facility] BMI 2022-07-18 16:30:00 26.57 kg/m2 [facility] Systolic blood 2022-06-26 07:20:00 130 mm[Hg] Univer sity of pressure [facility] Diastolic blood 2022-06-26 07:20:00 96 mm[Hg] Unive rsity of pressure [facility] Heart rate 2022-06-26 07:20:00 66 /min Universi ty of [facility] Branch Respiratory rate 2022-06-26 07:20:00 15 /min Univ ersity of [facility] Oxygen saturation in 2022-06-26 07:20:00 100 /min [facility] Arterial blood by [facility] Pulse oximetry Branch Body temperature 2022-06-26 05:48:00 36.61 Cheryl Univ ersity of [facility] Body height 2022-06-26 05:48:00 160 cm [facility] Body weight 2022-06-26 05:48:00 68.04 kg Universi ty of [facility] BMI 2022-06-26 05:48:00 26.57 kg/m2 [facility] Systolic blood 2022-06-06 18:44:00 139 mm[Hg] Univer sity of [facility] Diastolic blood 2022-06-06 18:44:00 101 mm[Hg] Unive rsity of [facility] Heart rate 2022-06-06 18:43:00 74 /min [facility] Body height 2022-06-06 18:43:00 160 cm [facility] Body weight 2022-06-06 18:43:00 71.759 kg [facility] BMI 2022-06-06 18:43:00 28.02 kg/m2 [facility] Systolic blood 2020-09-24 07:07:00 131 mm[Hg] Univer sity of [facility] Diastolic blood 2020-09-24 07:07:00 92 mm[Hg] Unive rsity of [facility] Heart rate 2020-09-24 07:07:00 97 /min Universi ty of [facility] Branch Body temperature 2020-09-24 07:07:00 36.78 Cheryl Univ ersity of [facility] Branch Respiratory rate 2020-09-24 07:07:00 16 /min Univ ers[facility] Body weight 2020-09-24 07:07:00 71.668 kg [facility] BMI 2020-09-24 07:07:00 27.99 kg/m2 Universi ty of [facility] Oxygen saturation in 2020-09-24 07:07:00 100 /min University of Arterial blood by [facility] Pulse oximetry Branch Systolic blood 2020-03-09 14:27:00 132 mm[Hg] Univer sity of pressure [facility] Diastolic blood 2020-03-09 14:27:00 98 mm[Hg] Unive rsity of pressure [facility] Branch Respiratory rate 2020-03-09 14:25:00 16 /min Univ ersity of [facility] Body height 2020-03-09 14:25:00 160 cm Universi ty of [facility] Body weight 2020-03-09 14:25:00 92.625 kg Universi ty of [facility] BMI 2020-03-09 14:25:00 36.17 kg/m2 Universi ty of [facility] Heart rate 2020-03-09 14:25:00 77 /min Universi ty of [facility] Branch Body temperature 2020-03-09 14:25:00 36.28 Cheryl Univ ersity of [facility] Systolic blood 2019-10-17 13:01:00 133 mm[Hg] Univer sity of pressure [facility] Diastolic blood 2019-10-17 13:01:00 98 mm[Hg] Unive rsity of pressure [facility] Heart rate 2019-10-17 12:59:00 77 /min Universi ty of [facility] Body temperature 2019-10-17 12:59:00 36.11 Cheryl Univ [facility] Respiratory rate 2019-10-17 12:59:00 16 /min Univ ersity of [facility] Body height 2019-10-17 12:59:00 160 cm [facility] Body weight 2019-10-17 12:59:00 92.534 kg Universi ty of [facility] BMI 2019-10-17 12:59:00 36.14 kg/m2 Universi ty of [facility] Diastolic blood 2019-09-25 15:25:00 87 mm[Hg] Unive rsity of pressure [facility] Heart rate 2019-09-25 15:25:00 65 /min Universi ty of [facility] Body temperature 2019-09-25 15:25:00 36.56 Cheryl [facility] Respiratory rate 2019-09-25 15:25:00 16 /min [facility] Body height 2019-09-25 15:25:00 160 cm Universi ty [facility] Body weight 2019-09-25 15:25:00 91.899 kg Universi ty [facility] BMI 2019-09-25 15:25:00 35.89 kg/m2 Universi ty [facility] Systolic blood 2019-09-25 15:25:00 134 mm[Hg] Univer sity of pressure [facility] Systolic blood 2019-08-08 14:07:00 120 mm[Hg] Univer sity of pressure [facility] Diastolic blood 2019-08-08 14:07:00 88 mm[Hg] [facility] 2019-08-08 14:02:00 72 /min Universi ty [facility] Body temperature 2019-08-08 14:02:00 36.28 Cheryl [facility] Respiratory rate 2019-08-08 14:02:00 16 /min [facility] Body height 2019-08-08 14:02:00 160 cm [facility] Body weight 2019-08-08 14:02:00 93.951 kg [facility] BMI 2019-08-08 14:02:00 36.69 kg/m2 [facility] Procedures Procedure Date / Time Performing Clinician Source Performed FLU VACC (), 6 2022-11-29 20:17:49 Edda Kerr [facility] MO-64 YRS, .5ML, IM, QUAD Medica l Branch (FLUCELVAX) COMP. METABOLIC PANEL 2022-11-02 13:19:00 Cirilo Edda [facility] ([id number]) [facility] CBC WITH DIFF 2022-11-02 13:19:00 [facility] o f [facility] POCT SARS-COV-2 ANTIGEN 2022-10-18 16:48:00 Soumya Johnson [facility] (BINAX NOW) [facility] CONSENT/REFUSAL FOR 2022-10-17 15:53:40 Doctor Unassigned, [facility] DIAGNOSIS AND TREATMENT [facility] POCT MOLECULAR STREP 2022-10-15 14:16:00 Unknown, Attending [facility] POCT MOLECULAR STREP 2022-10-13 14:19:00 Unknown, Attending [facility] POCT SARS-COV-2 ANTIGEN 2022-10-13 14:16:00 Mack Ramos [facility] (BINAX NOW) Medical Branch FL TIME OR 2022-09-09 16:30:00 [facility] (NON-REPORTABLE) Medical Branch FL TIME OR 2022-09-09 16:30:00 [facility] (NON-REPORTABLE) [facility] [place] LAPAROSCOPIC 2022-09-09 15:07:00 [facility] CHOLECYSTECTOMY Medical Branch INTRAOPERATIVE 2022-09-09 15:07:00 [facility] CHOLANGIOGRAM [facility] POCT TEST 2022-09-09 14:49:00 Long Brown [facility] POCT TEST 2022-09-09 14:49:00 Long Brown [facility] DISCLOSURE AND CONSENT, 2022-08-17 05:01:00 Doctor Unassigned, [facility] MEDICAL AND SURGICAL [place] [facility] PROCEDURES DISCLOSURE AND CONSENT, 2022-08-17 05:01:00 Doctor Unassigned, [facility] MEDICAL AND SURGICAL [facility] PROCEDURES POCT URINALYSIS W/O 2022-07-22 00:00:00 Makc Ramos [facility] SPECIFIC GRAVITY [facility] POCT TEST 2022-07-20 20:38:00 Brenton Graham [facility] Medical [place] LIPASE 2022-07-20 20:34:00 Graham, [facility] COMP. METABOLIC PANEL 2022-07-20 20:34:00 Singer Brenton [facility] ([id number]) [facility] CBC WITH DIFF 2022-07-20 20:34:00 Graham, [facility] o f [facility] URINALYSIS 2022-07-20 20:34:00 Graham, [facility] gonzález f [facility] CONSENT/REFUSAL FOR 2022-07-20 19:21:54 Doctor Unassperry, [facility] DIAGNOSIS AND TREATMENT [facility] [place] [address] HEAD WO CONTRAST 2022-07-06 17:54:09 Agustina Sawyer [facility] PATIENT FINANCIAL 2022-07-06 12:48:07 Doctor [facility]ry, [facility] POLICY [facility] [place] POCT TEST 2022-06-26 06:42:00 Jaci Pollard [facility] NOTICE OF PRIVACY 2022-06-26 05:48:32 Doctor Unaviktoriya, [facility] [place] CONSENT/REFUSAL FOR 2022-06-26 05:47:20 Doctor Kalpesh [facility] DIAGNOSIS AND TREATMENT [facility] QUANTIFERON-TB ASSAY 2022-05-02 20:45:00 Laura [facility] QFT TB2 MINUS NIL 2022-05-02 20:45:00 Laura [facility] SARS-COV-2 COVID-19 2022-04-14 19:45:53 Doctor Kalpesh, [facility] VACCINE 12 YRS+, 0.3ML,IM [place] [facility] (PFIZER - DAY TOP) SARS-COV-2 COVID-19 2022-03-24 19:53:01 Doctor [facility]perry, [facility] VACCINE 12 YRS+, 0.3ML,IM [place] [facility] (PFIZER - DAY TOP) NOTICE OF PRIVACY 2020-09-24 06:52:43 Doctor Kalpesh, [facility] [place] [facility] [place] CONSENT/REFUSAL FOR 2020-09-24 06:52:30 Doctor Kalpesh, [facility] DIAGNOSIS AND TREATMENT [facility] CBC WITH DIFF 2020-03-09 15:00:00 David Brandon [facility] PROLACTIN 2020-03-09 14:59:00 David Brandon [facility] THYROID STIMULATING 2020-03-09 14:58:00 David Brandon Uni [facility] DISCLOSURE AND CONSENT, 2019-08-08 05:01:00 Doctor Unassigned, [facility] MEDICAL [facility] SURGICAL [place] [facility] PROCEDURES Plan of Care Planned Activity Planned Date Details Comments Source Encounters Start End Encounter Admission Attending Care Care Encounter Source Date/Time Date/Time Type Type Clinicians Facility Department ID 2020-12-14 Emergency [facility] [id number] Univers 14:57:27 ity [facility] 2022-11-29 2022-11-29 [id number] Univers 14:30:00 15:17:10 EDDA [facility] 2022-11-29 2022-11-29 [facility] 1.2.840.114 [id number] Univers 14:30:00 15:17:10 Visit Edda ONOFFMIX (?) 350.1.13.10 it y of [place] 4.2.7.2.686 Nicholas as MCKENZIE?BLEA [id number] [address] MEDICAL OFFICE BUILDING 2022-11-29 2022-11-29 Nurse CARRIE [place] 1.2.840.114 [id number] Univers 00:00:00 00:00:00 Triage Katja PAVON 350.1.13.10 it y of [facility] 4.2.7.2.686 Nicholas as [id number] [address] 2022-11-02 2022-11-02 Outpatient R CIRILO [facility] [id number] Univers 08:30:00 08:54:02 EDDA timizo [facility] 2022-11-02 2022-11-02 [employer]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 [address] MEDICAL OFFICE BUILDING 2022-11-01 2022-11-01 Outpatient [facility] [id number] Univers 10:00:00 10:57:08 EDDA [facility] 2022-11-01 2022-11-01 Office Cirilo, [facility] 1.2.840.114 [id number] Univers 10:00:00 10:57:08 Visit [facility] 350.1.13.10 it y of [place] 4.2.7.2.686 Nicholas as MCKENZIE?BLEA [id number] [facility] [address] MEDICAL OFFICE [facility] 2022-10-20 2022-10-20 Outpatient R BEN [facility] [id number] Univers 10:30:00 10:30:00 JANNETH [facility] 2022-10-18 2022-10-18 [facility] [id number] Univers 15:30:00 15:30:00 AGUSTINA [facility] 2022-10-18 2022-10-18 Outpatient R SUZETTE [facility] [id number] Univers 11:45:00 12:09:22 SOUMYA [facility] 2022-10-18 2022-10-18 Laboratory Only, Ang Db Test [facility] 1.2.8 40.114 [id number] Univers 11:45:00 12:00:00 Only Unknown, [facility] HEALTH 350.1.13.10 ity [facility] 4.2.7.2.686 Nicholas as MCKENZIE?BLEA [id number] [facility] [address] [facility] OFFICE [facility] 2022-10-17 2022-10-17 Emergency X PAULINA [facility] ERT [id number] Univers 10:59:00 11:29:00 ZULEYMA [facility] 2022-10-17 2022-10-17 Emergency [facility] 1.2.840.114 [id number] Univers 10:59:00 11:29:00 Zuleyma KRAUS 350.1.13.10 ity [facility] 4.2.7.2.686 [facility] [id number] [facility] [address] [place] [address] 2022-10-15 2022-10-15 Urgent Carla Lee [facility] 1.2.840.114 [id number] Univers 09:00:00 09:20:00 Care Unknown, Attending HEALTH 350.1.13.10 ity of [place] 4.2.7.2.686 Nicholas as MCKENZIE?BLEA [id number] [address] MEDICAL OFFICE [facility] 2022-10-15 2022-10-15 Outpatient R RICH [facility] [id number] Univers 09:00:00 09:00:00 CARLA ity of [facility] 2022-10-14 2022-10-14 Letter CARRIE Dumont 1.2.840.114 [id number] Univers 00:00:00 00:00:00 (Out) Delfin SAVANAH 350.1.13.10 ity of [facility] 4.2.7.2.686 Nicholas as [id number] [address] 2022-10-13 2022-10-13 Outpatient Yulisa RAMOS [facility] [id number] Univers 09:20:00 09:33:13 MACK mcfarland [facility] 2022-10-13 2022-10-13 Urgent Mack Ramos [facility] 1.2.840.11 [id number] Univers 09:20:00 09:33:13 Care Unknown, Attending HEALTH 350.1.13.10 ity of [place] 4.2.7.2.686 Nicholas as MCKENZIE?BLEA [id number] [address] MEDICAL OFFICE [facility] 2022-09-28 2022-09-28 Telephone [facility] 1.2.059.692 [id number] Univers 00:00:00 00:00:00 MapMyID 350.1.13.10 it y of [place] 4.2.7.2.686 Nicholas as MCKENZIE?BLEA [id number] [address] OFFICE [facility] 2022-09-28 2022-09-28 Telephone [facility] 1.2.184.052 [id number] Univers 00:00:00 00:00:00 Agustina HEALTH 350.1.13.10 it y of [place] 4.2.7.2.686 Nicholas as MCKENZIE?BLEA [id number] [address] OFFICE [facility] 2022-09-23 2022-09-23 Office [facility] 1.2.387.821 [id number] Univers 13:00:00 13:15:00 Visit Janneth KRAUS 350.1.13.10 i ty of [place] [id number] Ma dic[address] 2022-09-23 2022-09-23 Outpatient R [facility] [id number] Univers 13:00:00 13:00:00 JANNETH mcfarland [facility] 2022-09-22 2022-09-22 Patient [facility] 1.2.184.238 [id number] Univers 00:00:00 00:00:00 Secure Msg Janneth KRAUS 350.1.13.10 ity of [place] [id number] Ma dic[address] 2022-09-22 2022-09-22 Telephone [facility] 1.2.840.114 [id number] Univers 00:00:00 00:00:00 Janneth KRAUS 350.1.13.10 i ty of [place].2.[place] [id number] Ma dic[address] 2022-09-16 2022-09-16 [facility] [id number] Univers 11:30:00 11:30:00 AGUSTINA capellanzo [facility] 2022-09-13 2022-09-13 Telephone CARRIE Contreras 1.2.840.114 [id number] Univers 00:00:00 00:00:00 Janneth PAVON 350.1.13.10 it y of [facility] 4.2.7.2.686 Nicholas as [phone] [address] 2022-09-11 2022-09-11 Patient [facility] 1.2.682.859 [id number] Univers 00:00:00 00:00:00 Secure Msg Janneth KRAUS 350.1.13.10 ity of [place] [id number] [facility] [address] [facility] 2022-09-10 2022-09-10 Telephone [facility] 1.2.840.114 10 [id number] Univers 00:00:00 00:00:00 Janneth KRAUS 350.1.13.10 i ty of [place] [id number] [facility] [address] [facility] 2022-09-10 2022-09-10 Nurse Melissa BUTLER 1.2.840.114 [id number] Univers 00:00:00 00:00:00 Triage SAVANAH Asencio 350.1.13.10 ity of [facility] 4.2.7.2.686 Nicholas as [id number] [facility] [address] 2022-09-09 2022-09-09 Outpatient R [facility] OSMANI [id number] Univers 09:32:00 13:46:00 JANNETH ity of [facility] 2022-09-09 2022-09-09 [facility] 1.2.840.114 [id number] Univers 09:32:00 13:46:00 Encounter Janneth NAYANA 350.1.13.10 it[place] of [place]ICAL [id number] [facility] [address] 2022-09-09 2022-09-09 Surgery [facility] 1.2.773.359 [id number] Univers 10:15:00 13:24:00 Janneth NAYANA 350.1.13.10 i ty of [place] [id number] [facility] [address] 2022-08-29 2022-08-29 Telephone [facility] 1.2.840.114 1 [id number] Univers 00:00:00 00:00:00 [facility] 350.1.13.10 it [place].2.[place] [id number] [facility] [address] OFFICE BUILDING 2022-08-25 2022-08-25 Telephone [facility] 1.2.862.583 [id number] Univers 00:00:00 00:00:00 Agustina HEALTH 350.1.13.10 it y [facility] 4.2.7.2.686 Nicholas as MCKENZIE?BLEA [id number] Ma edda ENRIQUE 2 [facility] OFFICE [facility] 2022-08-15 2022-08-15 Outpatient R BEN [facility] [id number] Univers 09:30:00 10:54:02 JANNETH mcfarland [facility] 2022-08-15 2022-08-15 Office [facility] 1.2.785.884 [id number] Univers 09:30:00 10:54:02 Visit Janneth KRAUS 350.1.13.10 i ty [place] [id number] [facility] [address] [facility] 2022-08-08 2022-08-08 Telephone [facility] 1.2.969.115 [id number] Univers 00:00:00 00:00:00 Agustina HEALTH 350.1.13.10 it y of [place] 4.2.7.2.686 Nicholas as MCKENZIE?BLEA [phone] [address] 2022-08-05 2022-08-05 [facility] [id number] Univers 10:00:00 10:00:00 MACK timizo [facility] 2022-07-27 2022-07-27 Case [facility] 1.2.283.794 [id number] Univers 00:00:00 00:00:00 Management Mack KRAUS 350.1.13.10 ity [place] [id number] Ma dical NAL [address] [facility] 2022-07-25 2022-07-25 Hospital AVANI Ramos 1.2.840.114 1 [id number] Univers 15:10:20 23:59:00 Encounter Mack Du HEALTH 350.1.13.10 ity of [place] [id number] [facility] [address] 2022-07-25 2022-07-25 [facility] [id number] Univers 17:21:45 15:09:55 MACK mcfarland [facility] 2022-07-25 2022-07-25 [facility] RichardCAPRICE 1.2.840.114 1 [id number] Univers 15:09:55 15:09:55 Encounter Mack [facility] 350.1.13.[address] [facility] 4.2.7.2.[place] [id number] [facility] [address] 2022-07-22 2022-07-22 [facility] [id number] Univers 10:00:00 10:43:08 MACK mcfarland [facility] 2022-07-22 2022-07-22 Office [facility] 1.2.472.905 [id number] Univers 10:00:00 10:43:08 Visit Mack KRAUS 350.1.13.10 i ty of [place] [facility] [id number] [facility] [address] [facility] 2022-07-20 2022-07-20 Emergency X [facility] ERT [id number] Univers 14:37:00 17:01:00 BRENTON mcfarland [facility] 2022-07-20 2022-07-20 Emergency [facility] 1.2.509.480 [id number] Univers 14:37:00 17:01:00 Brenton KRAUS 350.1.13.10 i ty of [place] [id number] [facility] [address] 2022-07-20 2022-07-20 Urgent Ebkimberly, Jarrettia [facility] 1.2.840.114 [id number] Univers 13:40:00 14:00:00 Care Unknown, Attending HEALTH 350.1.13.10 ity of [place] 4.2.7.2.686 Nicholas as MCKEZNIE?BLEA [id number] Ma dical KNEY [address] MEDICAL OFFICE BUILDING 2022-07-20 2022-07-20 Outpatient R RICH [facility] [id number] Univers 13:40:00 13:40:00 CARAL mcfarland [facility] 2022-07-18 2022-07-18 Outpatient R DIGNA [facility] [id number] Univers 11:30:00 11:51:46 AGUSTINA mcfarland [facility] 2022-07-18 2022-07-18 Office [facility] 1.2.840.114 [id number] Univers 11:30:00 11:51:46 Visit AgustinaMark43 350.1.13.10 it y of [place] 4.2.7.2.686 Nicholas as MCKENZIE?BLEA [id number] [address] OFFICE [facility] 2022-07-18 2022-07-18 [facility] 1.2.840.114 [id number] Univers 00:00:00 00:00:00 Agustina ONOFFMIX (?) 350.1.13.10 it y of [place] 4.2.7.2.686 Nicholas as MCKENZIE?BLEA [id number] [address] OFFICE [facility] 2022-07-12 2022-07-12 Outpatient R DIGNA [facility] [id number] Univers 11:30:00 11:30:00 AGUSTINA zo [facility] 2022-07-10 2022-07-10 [facility] 1.2.840.114 [id number] Univers 00:00:00 00:00:00 Agustina ONOFFMIX (?) [facility].1.13.10 it y of [place] 4.2.7.2.686 Nicholas as MCKENZIE?BLEA [id number] [address] 2022-07-08 2022-07-08 Outpatient R DIGNA [facility] [id number] Univers 14:00:00 14:00:00 AGUSTINA mcfarland [facility] 2022-07-06 2022-07-06 Outpatient R DIGNA [facility] [id number] Univers 12:42:35 23:59:00 AGUSTINA mcfarland [facility] 2022-07-06 2022-07-06 [facility] 1.2.840.114 [id number] Univers 07:48:08 23:59:00 Encounter Agustina KRAUS 350.1.13.10 ity of [place] 4.2.7.2.686 [facility] [id number] [facility] [address] 2022-06-26 2022-06-26 Emergency X ABRAZO [facility] ERT [id number] Univers 00:58:00 02:28:00 FOLUSHO ity [facility] 2022-06-26 2022-06-26 Emergency [facility] 1.2.840.114 [id number] Univers 00:58:00 02:28:00 Folomeroo F NAYANA 350.1.13.10 ity of [place] 4.2.7.2.686 [facility] [id number] [facility] [address] 2022-06-26 2022-06-26 Orders Doctor CARRIE 1.2.840.114 [id number] Univers 00:00:00 00:00:00 Only Unassigned, SAVANAH 350.1.13.10 ity of [facility] 4.2.7.2.686 Nicholas as [id number] [facility] [address] 2022-06-17 2022-06-17 Outpatient Yulisa SAWYER [facility] [id number] Univers 00:00:00 00:00:00 AGUSTINA [facility] 2022-06-10 2022-06-10 [facility] [id number] Univers 00:00:00 00:00:00 AGUSTINA zo [facility] 2022-06-06 2022-06-06 Outpatient Yulisa SAWYER [facility] [id number] Univers 13:30:00 14:03:51 AGUSTINA y [facility] 2022-06-06 2022-06-06 Office [facility] 1.2.840.114 [id number] Univers 13:30:00 14:03:51 Visit Agustina [facility] 350.1.13.10 it y [facility] 4.2.7.2.686 Nicholas as MCKENZIE?BLEA [id number] Ma edda [address] MEDICAL OFFICE BUILDING 2022-06-06 2022-06-06 Outpatient Yulisa [facility] [id number] Univers 13:30:00 13:30:00 AGUSTINA ity of [facility] 2022-06-06 2022-06-06 Cheli [facility]NEW [facility] 1.2.840.114 [id number] Univers 00:00:00 00:00:00 Agustina HEALTH 350.1.13.10 it y [facility] 4.2.7.2.686 Nicholas as MCKENZIE?BLEA [id number] [facility] [address] [facility] OFFICE [facility] 2022-05-02 2022-05-02 Outpatient R TGH CRYSTAL RIVERA [id number] Univers 15:51:00 23:59:00 SYLVIA, ity of [facility] 2022-05-02 2022-05-02 [facility] 1.2.840.114 [id number] [facility] 15:51:00 23:59:00 Encounter sylvia, PRIMARY [id number] ity [facility] [id number] [place] [id number] [address] 2022-04-14 2022-04-14 Imm/Inj Vaccine, Ang Db [facility] 1. 2.840.114 [id number] [facility] 14:00:00 14:20:00 Visit David Brandon [facility] 350.1.13. 10 ity of [place] [id number] Nicholas as MCKENZIE?BLEA [phone] [facility] 044 [facility] OFFICE [facility] 2022-04-14 2022-04-14 Outpatient R AKINDONNAPE, [facility] [facility] [id number] Univers 14:00:00 14:00:00 DAVID ity o f [facility] 2022-04-01 2022-04-01 [facility] [id number] Univers 13:00:00 13:00:00 DAVID ity o f [facility] 2022-03-24 2022-03-24 Imm/Inj Vaccine, Ang Db Cbc [facility] 1. 2.840.114 [id number] Univers 14:00:00 14:00:00 Visit David Brandon HEALTH 350.1.13. 10 ity of [place] 4.2.7.2.686 Nicholas as MCKENZIE?BLEA [phone] Ma edda [address] MEDICAL OFFICE BUILDING 2022-03-24 2022-03-24 Outpatient R AKINSIPE, [facility] [id number] Univers 14:00:00 13:49:09 DAVID ity o [facility] 2022-03-21 2022-03-21 Outpatient R AKINSIPE, [facility] [id number] Univers 15:15:00 15:15:00 DAVID ity o [facility] 2021-09-10 2021-09-10 Outpatient R AKINSIPE, [facility] [id number] Univers 13:00:00 13:00:00 DAVID ity o [facility] 2021-09-08 2021-09-08 Outpatient R AKINSIPE, [facility] [id number] Univers 09:45:00 09:45:00 DAVID ity o [facility] 2021-08-12 2021-08-12 Outpatient R AKINSIPE, [facility] [id number] Univers 14:00:00 14:00:00 DAVID ity o [facility] 2021-08-12 2021-08-12 Outpatient R AKINSIPE, [facility] [id number] Univers 14:00:00 14:00:00 DAVID ity o [facility] 2021-08-09 2021-08-09 Outpatient R HUGHES, [facility] [id number] Univers 09:15:00 09:15:00 TARINDA ity o [facility] 2020-09-28 2020-09-28 Outpatient R HUGHES, [facility] [id number] Univers 09:45:00 09:45:00 AGUSTÍNA ity o [facility] 2020-09-24 2020-09-24 Emergency [facility] [id number] Univers 02:09:00 03:41:00 Gavi De La Garza [place] 350.1.13.10 ity of [place] 4.2.7.2.686 [place] [phone] [address] 2020-05-05 2020-05-05 Patient Eliecer [facility] 1.2.840.114 [id number] Univers 00:00:00 00:00:00 Outreach Bhupinderfabrizio SNIDER 350.1.13.10 i ty of [facility] 4.2.7.2.686 Amada JOSEPH [phone] Ma dical [address] 2020-04-02 2020-04-02 Outpatient R ROMA, [facility] [id number] Univers 09:30:00 09:30:00 DAVID ity o f [facility] 2020-03-25 2020-03-25 Outpatient R ROMA, [facility] [id number] Univers 10:30:00 10:30:00 DAVID capellany o f [facility] 2020-03-16 2020-03-16 Refill Doctor [facility] 1.2.840.114 [id number] Univers 00:00:00 00:00:00 Unassigned, [employer] IN[employer]ALLATION MANAGER 350.1.13.10 ity of [place] [facility] 4.2.7.2.686 Nicholas as MATERNAL [phone] Med ical & CHILD [address] [place] [address] 2020-03-09 2020-03-09 Office [facility] [id number] Univers 08:08:15 09:03:55 Visit David Frey [employer] ENER[employer] INSTALLATION MANAGER 350.1.13.10 ity of [facility] 4.2.7.2.686 Nicholas as MATERNAL [phone] Med ical & CHILD [address] [place] [address] 2020-03-09 2020-03-09 Outpatient R ROMA, [facility] [id number] Univers 08:15:00 08:15:00 DAVID claudio f [facility] 2019-10-17 2019-10-17 Office [facility] 1.2.000.189 [id number] Univers 07:45:48 08:28:56 Visit Mirta Velasco SOLAR ENERGY INSTALLATION MANAGER 350.1.13.10 it y of [facility] 4.2.7.2.686 Nicholas as MATERNAL [phone] Med ical & CHILD [address] [place] [address] 2019-10-17 2019-10-17 [facility] [id number] Univers 07:45:00 07:45:00 MIRTA mcfarland of [facility] 2019-10-15 2019-10-15 Telephone [facility] [id number] Univers 00:00:00 00:00:00 Agustína R SOLAR ENERGY INSTALLATION MANAGER 350.1.13.10 ity of [facility] 4.2.7.2.686 Nicholas as MATERNAL [phone] [facility] ical & CHILD [address] [place] [address] 2019-09-25 2019-09-25 [facility] 1.2.840.114 [id number] Univers 10:12:03 11:18:58 Visit Tarimj R SOL[employer] ENERGY INSTALLATION MANAGER 350.1.13.10 ity of [facility] 4.2.7.2.686 Nicholas as MATERNAL [phone] [facility] & [address] 2019-09-25 2019-09-25 [facility] [id number] Univers 10:15:00 10:15:00 TARINDA ity o f [facility] 2019-09-18 2019-09-18 Outpatient R AKINSIPE, [facility] [id number] Univers 08:15:00 08:15:00 DAVID ity o f [facility] 2019-09-11 2019-09-11 Outpatient R AKINSIPE, [facility] [id number] Univers 09:00:00 09:00:00 DAVID ity o f [facility] 2019-09-09 2019-09-09 Outpatient R AKINSIPE, [facility] [id number] Univers 14:15:00 14:15:00 DAVID ity o f [facility] 2019-09-02 2019-09-02 Telephone [facility] 1.2.840.114 [id number] Univers 00:00:00 00:00:00 Mirta Velasco SOLAR ENERGY INSTALLATION MANAGER 350.1.13.10 it y of [facility] 4.2.7.2.686 Nicholas as MATERNAL [phone] [facility] & CHILD [address] [place] [address] 2019-08-30 2019-08-30 Refjenifer [facility] [id number] Univers 00:00:00 00:00:00 Mirta N SOLAR ENERGY INSTALLATION MANAGER 350.1.13.10 it y of [facility] 4.2.7.2.686 Nicholas as MATERNAL [phone] [address] 2019-08-08 2019-08-[address] [facility] [id number] [id number] Univers 08:42:42 09:12:42 Visit David Frey SOLAR ENERGY INSTALLATION MANAGER 350.1.13.10 ity of [facility] 4.2.7.2.686 Nicholas as MATERNAL [id number] [address] 2019-08-08 2019-08-08 Outpatient R [facility] [id number] Univers 09:00:00 09:00:00 DAVID claudio f [facility] 2019-08-08 2019-08-08 Orders Doctor CARRIE 1.2.840.114 [id number] Univers 00:00:00 00:00:00 Only Unassigned, SAVANAH 350.1.13.10 ity of [place] [facility] 4.2.7.2.686 Nicholas as [phone] [address] 2019-08-06 2019-08-06 Telephone [facility] 1.2.840.114 [id number] Univers 00:00:00 00:00:00 Mirta Velasco SOLAR ENERGY INSTALLATION MANAGER 350.1.13.10 it y of [facility] 4.2.7.2.686 Nicholas as MATERNAL [phone] [address] Results Test Description Test Time Test Comments Results Result Comments Source POCT SARS-COV-2 ANTIGEN (BINAX NOW) 2022-10-18 17:03:00 Test Item Value Reference Range Interpretation Comme nts POCT SARS-COV-2 ANTIGEN (test code Not Detected Not Detected = 30935-6) On board controls acceptable with Yes C Line (test code = 3574) ELVI (test code = ELVI) accurate development and interpretation of all internal controls Lab Interpretation (test code = Normal 81609-6) [facility] [id number] 14:24:37 Test Item Value Reference Range Interpretation Comments POCT Molecular Strep (test code = Negative Negative 52059-2) Lab Interpretation (test code = Normal 66257-8) [facility] SARS-COV-2 ANTIGEN (BINAX NOW)2022-10-13 14:31:00 Test Item Value Reference Range Interpretation Comments POCT SARS-COV-2 ANTIGEN (test Not Detected Not Detected code = 58462-8) On board controls acceptable Yes with C Line (test code = 3574) Lab Interpretation (test code = Normal 85211-6) [facility] SARS-COV-2 ANTIGEN (BINAX NOW)2022-10-13 14:31:00 Test Item Value Reference Range Interpretation Comments POCT SARS-COV-2 ANTIGEN (test Not Detected Not Detected code = 45212-5) On board controls acceptable Yes with C Line (test code = 3574) Lab Interpretation (test code = Normal 94878-8) [facility] SARS-COV-2 ANTIGEN (BINAX NOW)2022-10-13 14:31:00 Test Item Value Reference Range Interpretation Comments POCT SARS-COV-2 ANTIGEN (test Not Detected Not Detected code = 73704-1) On board controls acceptable Yes with C Line (test code = 3574) Lab Interpretation (test code = Normal 75438-5) [facility] MOLECULAR [id number] 14:26:42 Test Item Value Reference Range Interpretation Comments POCT Molecular Strep (test code = Negative Negative 21569-0) Lab Interpretation (test code = Normal 74439-5) [facility] MOLECULAR [id number] 14:26:42 Test Item Value Reference Range Interpretation Comments POCT Molecular Strep (test code = Negative Negative 41595-9) Lab Interpretation (test code = Normal 90179-0) [facility] MOLECULAR [id number] 14:26:42 Test Item Value Reference Range Interpretation Comments POCT Molecular Strep (test code = Negative Negative 79896-3) Lab Interpretation (test code = Normal 57617-2) [facility] [id number] 14:49:00 Test Item Value Reference Range Interpretation Comments POCT PREG (test code = 1605) Negative On board controls acceptable with C Yes Line (test code = 3574) POCT PREG LOT # (test code = 3575) POCT PREG TEST DATE (test code = 3576) [facility] [id number] 14:49:00 Test Item Value Reference Range Interpretation Comments POCT PREG (test code = 1605) Negative On board controls acceptable with C Yes Line (test code = 3574) POCT PREG LOT # (test code = 3575) POCT PREG TEST DATE (test code = 3576) [facility] URINALYSIS W/O SPECIFIC [id number] 15:43:00 Test Item Value Reference Range Interpretation Comments POCT PH U (test code = 3254) 7 mg/dl 5-8 POCT U LEUK EST (test code = neg Negative - Negative 3263) POCT U NIT (test code = 3262) neg Negative - Negative POCT U PROT (test code = 3259) trace Negative - Negative POCT U GLU (test code = 3256) neg Negative - Negative POCT U KETONE (test code = 3258) neg Negative - Negative POCT U BLD (test code = 3257) neg Negative - Negative [facility] URINALYSIS W/O SPECIFIC [id number] 15:43:00 Test Item Value Reference Range Interpretation Comments POCT PH U (test code = 3254) 7 mg/dl 5-8 POCT U LEUK EST (test code = neg Negative - Negative 3263) POCT U NIT (test code = 3262) neg Negative - Negative POCT U PROT (test code = 3259) trace Negative - Negative POCT U GLU (test code = 3256) neg Negative - Negative POCT U KETONE (test code = 3258) neg Negative - Negative POCT U BLD (test code = 3257) neg Negative - Negative [facility] SPECIFIC [id number] 15:43:00 Test Item Value Reference Range Interpretation Comments POCT PH U (test code = 3254) 7 mg/dl 5-8 POCT U LEUK EST (test code = neg Negative - Negative 3263) POCT U NIT (test code = 3262) neg Negative - Negative POCT U PROT (test code = 3259) trace Negative - Negative POCT U GLU (test code = 3256) neg Negative - Negative POCT U KETONE (test code = 3258) neg Negative - Negative POCT U BLD (test code = 3257) neg Negative - Negative [facility] ([id number])2022-07-20 21:19:12 Test Item Value Reference Range Interpretation Comments NA (test code = 141 mmol/L 135-145 1105104786) K (test code = 3.6 mmol/L 3.5-5.0 9944933485) CL (test code = 107 mmol/L 98-108 0707539548) CO2 TOTAL (test code = 22 mmol/L 23-31 L 4063801712) AGAP (test code = 12 2-16 4330176189) BUN (test code = 8 mg/dL 7-23 1084101677) GLUCOSE (test code = 92 mg/dL 70-110 6709831031) CREATININE (test code = 0.72 mg/dL 0.50-1.04 2191574212) TOTAL BILI (test code = 1.0 mg/dL 0.1-1.3 9716878235) CALCIUM (test code = 8.8 mg/dL 8.6-10.6 3768561817) T PROTEIN (test code = 8.0 g/dL 6.3-8.2 4888040521) ALBUMIN (test code = 4.7 g/dL 3.5-5.0 0226245700) ALK PHOS (test code = 55 U/L 34-122 3678940921) ALTv (test code = 15 U/L 5-35 1742-6) AST(SGOT) (test code = 21 U/L 13-40 6236420295) eGFR (test code = 94.5 mL/min/1.73m2 0577261234) ELVI (test code = ELVI) Association of Glomerular Filtration Rate (GFR) and Staging of Kidney Disease* + --+ --+ ------+| GFR (mL/min/1.73 m2) ?| With Kidney Damage ?| ?Without Kidney Damage+ --------+ --------+ +| ?>90 ?| ?Stage one ?| ? Normal ?+ ---+ ---+ -------+| ?60-89 ?| ?Stage two ?| ? Decreased GFR ? + --+ --+ ------+| ?30-59 ?| ?Stage three ?| ? Stage three ? + --+ --+ ------+| ?15-29 ?| ?Stage four ? | ? Stage four ?+ ---+ ---+ -------+| ?<15 (or dialysis) ? ?| ?Stage five ? | ? Stage five ?+ ---+ ---+ -------+ *Each stage assumes the associated GFR level has been in effect for at least three months. ?Stages 1 to 5, with or without kidney disease, indicate chronic kidney disease. Notes: Determination of stages one and two (with eGFR >59mL/min/1.73 m2) requires estimation of kidney damage for at least three months as defined by structural or functional abnormalities of the kidney, manifested by either:Pathological abnormalities or Markers of kidney damage (including abnormalities in the composition of the blood or urine or abnormalities in imaging tests). Lab Interpretation Abnormal (test code = 76968-6) [facility] 21:18:31 Test Item Value Reference Range Interpretation Comments LIPASE (test code = 6400721420) 152 U/L 0-220 Lab Interpretation (test code = Normal 67047-5) [facility] WITH [id number] 21:07:28 Test Item Value Reference Range Interpretation Comments WBC (test code = 6.56 See_Comment [Automated 5051-2) message] The sy stem which generated this result transmitted reference range : 4.30 - 11.10 10*3/?L. The reference range was not used to interpret this result as normal/abnormal . RBC (test code = 4.91 See_Comment [Automated 486-8) message] The sy stem which generated this result transmitted reference range : 3.93 - 5.25 10*6/?L. The reference range was not used to interpret this result as normal/abnormal . HGB (test code = 14.2 g/dL 11.6-15.0 718-7) HCT (test code = 40.8 % 35.7-45.2 4544-3) MCV (test code = 83.1 fL 80.6-95.5 787-2) MCH (test code = 28.9 pg 25.9-32.8 785-6) MCHC (test code = 34.8 g/dL 31.6-35.1 786-4) RDW-SD (test code = 38.3 fL 39.0-49.9 L 34501-2) RDW-CV (test code = 12.6 % 12.0-15.5 788-0) PLT (test code = 311 See_Comment [Automated 777-3) message] The sy stem which generated this result transmitted reference range : 166 - 358 10*3/ ?L. The reference r mack was not used to interpret this result as normal/abnormal . MPV (test code = 10.9 fL 9.5-12.9 03362-9) NRBC/100 WBC (test 0.0 See_Comment [Automat ed code = 0100160019) message] The system which generated this result transmitted reference range : 0.0 - 10.0 /100 WBCs. The refer ence range was not u sed to interpret th is result as normal/abnormal . NRBC x10^3 (test code See_Comment [Auto mated = 6505777409) message] The s ystem which generated this result transmitted reference range : 10*3/?L. The reference range was not used to interpret this result as normal/abnormal . GRAN MAT (NEUT) % 55.1 % (test code = 770-8) IMM GRAN % (test code 0.20 % = 1297085623) LYMPH % (test code = 34.1 % 736-9) MONO % (test code = 8.2 % 5905-5) EOS % (test code = 1.8 % 713-8) BASO % (test code = 0.6 % 706-2) GRAN MAT x10^3(ANC) 3.61 10*3/uL 1.88-7.09 (test code = 8240591316) IMM GRAN x10^3 (test 0.00-0.06 code = 1267237825) LYMPH x10^3 (test code 2.24 10*3/uL 1.32-3.29 = 731-0) MONO x10^3 (test code 0.54 10*3/uL 0.33-0.92 = 742-7) EOS x10^3 (test code = 0.12 10*3/uL 0.03-0.39 711-2) BASO x10^3 (test code 0.04 10*3/uL 0.01-0.07 = 704-7) Lab Interpretation Abnormal (test code = 47003-5) [facility] [id number] 20:38:00 Test Item Value Reference Range Interpretation Comments POCT PREG (test code = 1605) Negative On board controls acceptable with C Yes Line (test code = 3574) POCT PREG LOT # (test code = 3575) [id number] POCT PREG TEST DATE (test 5492871 code = 3576) Lab Interpretation (test code = Normal 14028-7) [facility] [id number] 06:42:00 Test Item Value Reference Range Interpretation Comments POCT PREG (test code = 1605) Negative On board controls acceptable with Yes C Line (test code = 3574) POCT PREG LOT # (test code = 3575) [id number] POCT PREG TEST DATE (test 2023-09-21 code = 3576) Lab Interpretation (test code = Normal 74764-4) [facility] 12:59:00 Test Item Value Reference Range Interpretation Comments PROLACTIN (test code = 8260473908) 15.4 ng/mL 3.3-26.7 Lab Interpretation (test code = Normal 81707-1) [facility] 12:59:00 Test Item Value Reference Range Interpretation Comments PROLACTIN (test code = 0686229014) 15.4 ng/mL 3.3-26.7 Lab Interpretation (test code = Normal 68450-8) [facility] [id number] 06:30:00 Test Item Value Reference Range Interpretation Comments TSH (test code = See_Comment Biotin has been 9587982914) reported to cau se a negative bias, interpret resul ts relative to pat arianna's use of biotin. [Automated mess age] The system [employer] generated this result transmitted ref erence range: 0.45 - 4 .70 mIU/L. The refe rence range was not u sed to interpret this result as normal/abnor mal. Lab Interpretation (test Normal code = 34101-2) [facility] [id number] 06:30:00 Test Item Value Reference Range Interpretation Comments TSH (test code = See_Comment Biotin has been 1625288447) reported to cau se a negative bias, interpret resul ts relative to maddie keller's use of biotin. [Automated mess age] The system whic h generated this result transmitted ref erence range: 0.45 - 4 .70 mIU/L. The refe rence range was not u sed to interpret this result as normal/abnor mal. Lab Interpretation (test Normal code = 56614-7) [facility] WITH [id number] 05:44:00 Test Item Value Reference Range Interpretation Comments WBC (test code = See_Comment [Automated 0390-2) message] The sy stem which generated this result transmitted reference range : 4.30 - 11.10 10*3/?L. The reference range was not used to interpret this result as normal/abnormal . RBC (test code = See_Comment [Automated 849-8) message] The sy stem which generated this result transmitted reference range : 3.93 - 5.25 10*6/?L. The reference range was not used to interpret this result as normal/abnormal . HGB (test code = 14.0 g/dL 11.6-15 718-7) HCT (test code = 41.9 % 35.7-45.2 4544-3) MCV (test code = 84.5 fL 80.6-95.5 787-2) MCH (test code = 28.2 pg 25.9-32.8 785-6) MCHC (test code = 33.4 g/dL 31.6-35.1 786-4) RDW-SD (test code = 37.4 fL 39-49.9 L 10237-1) RDW-CV (test code = 12.4 % 12-15.5 788-0) PLT (test code = See_Comment [Automated 777-3) message] The sy stem which generated this result transmitted reference range : 166 - 358 10*3/ ?L. The reference r mack was not used to interpret this result as normal/abnormal . MPV (test code = 11.3 fL 9.5-12.9 69811-8) NRBC/100 WBC (test See_Comment [Automat ed code = 7864825236) message] The system which generated this result transmitted reference range : 0.0 - 10.0 /100 WBCs. The refer ence range was not u sed to interpret th is result as normal/abnormal . NRBC x10^3 (test code <0.01 See_Comment [Auto mated = 4166031969) message] The s ystem which generated this result transmitted reference range : 10*3/?L. The reference range was not used to interpret this result as normal/abnormal . GRAN MAT (NEUT) % 67.1 % (test code = 770-8) IMM GRAN % (test code 0.10 % = 1685564624) LYMPH % (test code = 23.5 % 736-9) MONO % (test code = 7.2 % 5905-5) EOS % (test code = 1.5 % 713-8) BASO % (test code = 0.6 % 706-2) GRAN MAT x10^3(ANC) 4.85 10*3/uL 1.88-7.09 (test code = 2343554822) IMM GRAN x10^3 (test <0.03 0-0.06 code = 0378895184) LYMPH x10^3 (test code 1.70 10*3/uL 1.32-3.29 = 731-0) MONO x10^3 (test code 0.52 10*3/uL 0.33-0.92 = 742-7) EOS x10^3 (test code = 0.11 10*3/uL 0.03-0.39 711-2) BASO x10^3 (test code 0.04 10*3/uL 0.01-0.07 = 704-7) Lab Interpretation Abnormal (test code = 82817-2) [facility] WITH [id number] 05:44:00 Test Item Value Reference Range Interpretation Comments WBC (test code = See_Comment [Automated 3390-2) message] The sy stem which generated this result transmitted reference range : 4.30 - 11.10 10*3/?L. The reference range was not used to interpret this result as normal/abnormal . RBC (test code = See_Comment [Automated 289-8) message] The sy stem which generated this result transmitted reference range : 3.93 - 5.25 10*6/?L. The reference range was not used to interpret this result as normal/abnormal . HGB (test code = 14.0 g/dL 11.6-15 718-7) HCT (test code = 41.9 % 35.7-45.2 4544-3) MCV (test code = 84.5 fL 80.6-95.5 787-2) MCH (test code = 28.2 pg 25.9-32.8 785-6) MCHC (test code = 33.4 g/dL 31.6-35.1 786-4) RDW-SD (test code = 37.4 fL 39-49.9 L 48113-0) RDW-CV (test code = 12.4 % 12-15.5 788-0) PLT (test code = See_Comment [Automated 777-3) message] The sy stem which generated this result transmitted reference range : 166 - 358 10*3/ ?L. The reference r mack was not used to interpret this result as normal/abnormal . MPV (test code = 11.3 fL 9.5-12.9 97775-7) NRBC/100 WBC (test See_Comment [Automat ed code = 5539105604) message] The system which generated this result transmitted reference range : 0.0 - 10.0 /100 WBCs. The refer ence range was not u sed to interpret th is result as normal/abnormal . NRBC x10^3 (test code <0.01 See_Comment [Auto mated = 1784314294) message] The s ystem which generated this result transmitted reference range : 10*3/?L. The reference range was not used to interpret this result as normal/abnormal . GRAN MAT (NEUT) % 67.1 % (test code = 770-8) IMM GRAN % (test code 0.10 % = 0366760054) LYMPH % (test code = 23.5 % 736-9) MONO % (test code = 7.2 % 5905-5) EOS % (test code = 1.5 % 713-8) BASO % (test code = 0.6 % 706-2) GRAN MAT x10^3(ANC) 4.85 10*3/uL 1.88-7.09 (test code = 3268032092) IMM GRAN x10^3 (test <0.03 0-0.06 code = 3706673717) LYMPH x10^3 (test code 1.70 10*3/uL 1.32-3.29 = 731-0) MONO x10^3 (test code 0.52 10*3/uL 0.33-0.92 = 742-7) EOS x10^3 (test code = 0.11 10*3/uL 0.03-0.39 711-2) BASO x10^3 (test code 0.04 10*3/uL 0.01-0.07 = 704-7) Lab Interpretation Abnormal (test code = 32271-0) [facility] History and Physical Notes Date/Time Note Provider Source 2022-09-09 10:17:05 [id number]:17:05Formatting of OSMANI-SURGERY STAFF [facility] this note might be different from the original.Attending Interval Note:I personally evaluated and examined the patient on 09/09/2022, no interval changes, consent signed and on chart, proceed with laparoscopic cholecystectomy with cholangiogram.Janneth Contreras M.D.09/09/2022 10:17 ource Note - Janneth Contreras MD - 08/15/2022 9:30 AM CDT [facility] NOTEReason for Visit / Chief Complaint: GallstonesHistory of Present Illness: Yolanda Delvalle is a 31 year old female with a PMH significant for migraines who presents for evaluation of abdominal pain and gallstones. She was seen in the ED on 07/20/2022 for RLQ pain. Work up demonstrated possible gallstones, right corpus luteal cyst, uterine fibroid, and UTI. She was discharged from the ED with Keflex for the UTI. Her symptoms of UTI (dysuria) resolved. She was then evaluated by Gynecology for further evaluation of the corpus luteum cyst and uterine fibroid. Additionally, an abdominal U/S was obtained to further evaluate for gallstones. U/S demonstrated cholelithiasis. On further questioning she does report right sided abdominal pain which radiates around her right subcostal margin or shoulder blade. The pain is not associated with food intake. The pain occurs throughout the day, can awake her from sleep, and may occur on waking.Past Medical History:Past Medical History: Diagnosis Date Anemia 2014 H/O, resolved after Anxiety self diagnosed, self coping, not on medication Asthma 2003 as a child Female infertility Trying for x 1 year Leiomyoma of uterus 2013 fibroid Migraine Past Surgical History:No past surgical history on file.Allergies:No Known AllergiesMedications:Patient's Medications START taking these medications No medications on file CONTINUE taking these medications which have NOT CHANGED ERENUMAB-AOOE (AIMOVIG AUTOINJECTOR) 70 MG/ML ATIN inject 1 mL under the skin once every month. IBUPROFEN 800 MG TABLET Take 1 tablet by mouth in the morning and 1 tablet at noon and 1 tablet in the evening. Take with meals. NAPROXEN SODIUM (ANAPROX DS) 550 MG TABLET Take 1 tablet by mouth in the morning and 1 tablet in the evening. Take with meals. PROPRANOLOL 20 MG TABLET Take 1 tablet by mouth in the morning and 1 tablet in the evening. SUMATRIPTAN 100 MG TABLET Take 1 tablet by mouth as needed for Migraine (Max of 2 tablets/day.). START taking Modified Medications as Prescribed No medications on file STOP taking these medications No medications on file Current Outpatient Medications Medication Sig Dispense Refill erenumab-aooe (AIMOVIG AUTOINJECTOR) 70 mg/mL AtIn inject 1 mL under the skin once every month. 3 mL 1 ibuprofen 800 mg tablet Take 1 tablet by mouth in the morning and 1 tablet at noon and 1 tablet in the evening. Take with meals. 30 tablet 1 naproxen sodium (ANAPROX DS) 550 mg tablet Take 1 tablet by mouth in the morning and 1 tablet in the evening. Take with meals. 30 tablet 0 propranoloL 20 mg tablet Take 1 tablet by mouth in the morning and 1 tablet in the evening. 60 tablet 1 sumatriptan 100 mg tablet Take 1 tablet by mouth as needed for Migraine (Max of 2 tablets/day.). 10 tablet 1 No current facility-administered medications for this visit. Family History:Family History Problem Relation Age of Onset Hypertension Mother Hypertension Father Asthma Brother Diabetes Maternal Grandfather Other - see comments Maternal Grandfather thyroid d/o Heart Maternal Grandfather Hypertension Maternal Grandfather Arthritis Maternal Grandmother Hypertension Maternal Grandmother defects NoFHx Genetic NoFHx Breast Cancer NoFHx Colon Cancer NoFHx Ovarian Cancer NoFHx Uterine Cancer NoFHx Cancer NoFHx Depression NoFHx High cholesterol NoFHx Mental retardation NoFHx Neurological NoFHx Osteoporosis NoFHx Psychiatry NoFHx Social History:Social History Socioeconomic History Marital status: Single Number of children: 0 Years of education: 12 Occupational History 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 Employer: [employer] Tobacco Use Smoking status: Never Smokeless tobacco: Never Vaping Use Vaping Use: Never used Substance and Sexual Activity Alcohol use: Not Currently Comment: social Drug use: No Sexual activity: Yes Partners: Male control/protection: None Other Topics Concern Blood Transfusions No Social History Narrative Denies domestic violence or abuse Pt states her mosque preference is [employer] Review of Systems: A 14 point ROS was obtained, only positive responses are in BOLDConstitutional: Fever, chills, loss of appetite, fatigue, unexplained weight loss, unexplained weight gain, weaknessHead/Ears/Nose/Mouth/Thro at:Head: Headache, head injury, neck pain, neck stiffnessEars: Ear discharge, hearing loss, ear pain, tinnitusNose: Nose bleeds, sinus congestion, runny nose, postnasal drip, sneezing, sinus pressureMouth: Dental problems, mouth sores, sore tongue, dry mouthThroat: Sore throat, trouble swallowing, voice changeEyes: Discharge, itching, pain, redness, pain, vision disturbance, blurred vision, vision loss, cataracts, glaucomaCV: Chest pain, palpitations, arrhythmias, dyspnea on exertion, othopnea, claudication, edema, coronary artery disease/history of MIRespiratory: Cough, sputum production, hemoptysis, wheezing, shortness of breath, sleep apneaGI: Per HPIGU: Frequency, urgency, pain or burning with urination, flank pain, hematuria, incontinence, change in urinary stream, discharge, bleeding, pelvic pain, irregular mensesMusculoskeletal: Muscle pain, joint pain, joint swelling, back pain, stiffness, weakness, limitation of motion, arthritis, traumaIntegumentary/Breast: Integumentary: Rash, itching, pigmented lesions, lumps, tenderness, swelling, woundBreast: Pain, lumps, nipple discharge, skin changesNeurological: Weakness, sensory changes, syncope, seizures, headache, numbness, tingling, tremor, traumaHematologic/Lymphatic: Hematologic: Bleeding tendency, easy bruising, history of blood clots, anticoagulation/antiplatelet therapyLymphatic: LymphadenopathyEndocrine: Polyuria, polydipsia, polyphagia, heat or cold intolerance, hair loss, appetite changesAllergic/Immunologic: Allergic: Allergic reactionsImmunologic: Recurrent infectionsPsychiatric: Agitation, confusion, decreased concentration, hallucinations, anxiety, self-injury, sleep disturbance, suicidal ideationPhysical Exam:BP (!) 137/96 (BP Location: Left arm, Patient Position: Sitting, BP CUFF SIZE: Adult Medium) | Pulse 75 | Temp 37.4 ?C (99.3 ?F) (Temporal Artery) | Ht 1.6 m (5' 3") | Wt 69.4 kg (153 lb) | LMP 07/06/2022 | SpO2 100% | BMI 27.10 kg/m? Constitutional: Awake, alert, oriented, in no acute distressHead: Normocephalic, atraumaticEyes: Extraocular movements grossly intact, pupils equal and reactive to light and accomodation, anicteric scleraeEars: Normal external examNose: Normal external examMouth: Moist mucous membranesNeck: Supple, no jugular venous distentionCardiovascular: Regular rate and rhythm without murmurs, gallops, or rubsRespiratory: Symmetry of chest wall motion, clear to ausculation bilaterally, no respiratory distressGI: Normoactive bowel sounds, soft, nontender, non-distended, no incisional scarsMusculoskeletal: Normal tone and strength, normal range of motionNeurologic: CN II through XII grossly intact, no focal deficitsSkin: Warm and dry, capillary refill <2 seconds, no jaundice, rashes, lesions, or erythemaPsychiatric: Appropriate mood and affect, no obvious deficits of insight or judgmentLabs: Latest Reference Range & Units 07/20/22 15:34 WBC x10^3 4.30 - 11.10 10*3/?L 6.56 RBC x10^6 3.93 - 5.25 10*6/?L 4.91 HGB 11.6 - 15.0 g/dL 14.2 HCT 35.7 - 45.2 % 40.8 MCV 80.6 - 95.5 fL 83.1 MCH 25.9 - 32.8 pg 28.9 MCHC 31.6 - 35.1 g/dL 34.8 RDW-SD 39.0 - 49.9 fL 38.3 (L) RDW-CV 12.0 - 15.5 % 12.6 PLT x10^3 166 - 358 10*3/?L 311 MPV 9.5 - 12.9 fL 10.9 NRBC /100 WBC 0.0 - 10.0 /100 WBCs 0.0 NRBC x10^3 10*3/?L <0.01 GRAN MAT (NEUT) % % 55.1 IMM GRAN % % 0.20 LYMPH% % 34.1 MONO % % 8.2 EOS % % 1.8 BASO % % 0.6 GRAN MAT x10^3(ANC) 1.88 - 7.09 10*3/uL 3.61 IMM GRAN x10^3 0.00 - 0.06 10*3/uL <0.03 LYMPH x10^3 1.32 - 3.29 10*3/uL 2.24 MONO x10^3 0.33 - 0.92 10*3/uL 0.54 EOS x10^3 0.03 - 0.39 10*3/uL 0.12 BASO x10^3 0.01 - 0.07 10*3/uL 0.04 NA 135 - 145 mmol/L 141 K 3.5 - 5.0 mmol/L 3.6 CL 98 - 108 mmol/L 107 CO2 TOTAL 23 - 31 mmol/L 22 (L) AGAP 2 - 16 12 BUN 7 - 23 mg/dL 8 GLUCOSE 70 - 110 mg/dL 92 CREATININE 0.50 - 1.04 mg/dL 0.72 eGFR mL/min/1.73m2 94.5 TOTAL BILI 0.1 - 1.1 mg/dL 1.0 CALCIUM 8.6 - 10.6 mg/dL 8.8 T PROTEIN 6.3 - 8.2 g/dL 8.0 ALBUMIN 3.5 - 5.0 g/dL 4.7 LIPASE 0 - 220 U/L 152 ALK PHOS 34 - 122 U/L 55 ALTv 5 - 35 U/L 15 AST(SGOT) 13 - 40 U/L 21 COLOR Yellow Yellow APPEARANCE Clear Hazy ! SP GRAVITY 1.003 - 1.030 1.021 PH 4.8 - 8.0 5.0 PROTEIN Negative Negative GLU U QUAL Normal Normal KETONES Negative Negative BILIRUBIN Negative Negative BLOOD Negative Negative UROBILIN Normal Normal NITRITE Negative Negative LEUK JAY Negative 25/uL ! RBC/HPF 0 - 3 HPF 3 WBC/HPF 0 - 5 HPF 6 (H) BACTERIA Negative Few ! SQ EPITH HPF 15 MUCOUS Negative LPF Marked ! AMORPHOUS Rare HPF Rare (L): Data is abnormally low!: Data is abnormal(H): Data is abnormally highRadiology:CT ABDOMEN PELVIS W CONTRASTResult Date: . Uterine fibroid measures up to 2.5 cm. Right corpus luteal cyst. 2. Possible cholelithiasis. If there is clinical suspicious for acute cholecystitis, gallbladder ultrasound is recommended. 3. No other acute intra-abdominal or pelvic findings. Preliminary Report Dictated by Resident: Ezequiel Huddleston MD., have reviewed this study and agree with the above report.US GALL BLADDERResult Date: 3Cholelithiasis. No sonographic evidence of acute cholecystitis or biliary ductal dilatation. Preliminary Report Dictated by Resident: Ezequiel Randolph MD., have reviewed this study and agree with the above report.Assessment: Yolanda Delvalle is a 31 year old female referred for abdominal pain and gallstones. She has a large gallstone located at the neck of the gallbladder without cholecystitis or bile duct dilation. She would like to proceed with cholecystectomy.Plan:Schedule laparoscopic cholecystectomy with intraoperative cholangiogramRisks (pain, bleeding, infection, scar, injury to surrounding structures, bile leak, retained stones, need for further procedures), benefits, alternatives of laparoscopic cholecystectomy with intraoperative cholangiogram were discussed with the patient; all questions answered; informed consent obtained.Janneth Contreras M.D.08/15/2022 10:01 [id number] History and physical [id number]:18:12Attendin g History and physical [id number] for patient careSUR-SURGERY STAFFSUR-SURGERY STAFF[address] [id number]. [id number]
[2022-11-29 23:18] LABS: Absolute Lymphocytes (CBC) 2.3 K/uL (0.7-4.9); Hematocrit 38.6 % (36.0-45.0); MCV 82.1 fL (80-100); Platelets 310 thou/uL (152-406)
[2022-11-29 23:39] LABS: Albumin 3.6 g/dL (3.4-5.0); Bilirubin Direct 0.2 mg/dL (0-0.2); Bilirubin Indirect, Calculated 0.8 mg/dL (0.2-0.8); Magnesium 2.2 mg/dL (1.6-2.4); Protein, Total 7.5 g/dL (6.4-8.2); Troponin High Sensitivity 4.7 pg/mL (<58.9)
[2022-11-29] MEDS ORDERED: ONDANSETRON 4 MG/2 ML VIAL ONE (23:45)
[2022-11-29] MEDS ORDERED: KETOROLAC 30 MG/ML INJ ONE (23:45)
[2022-11-29] MEDS ORDERED: NA CHLORIDE 0.9% 1,000 ML ONE (23:45)
[2022-11-30 00:16] LABS: Barbiturates NEGATIVE (NEGATIVE); Benzodiazepines NEGATIVE (NEGATIVE); Cocaine NEGATIVE (NEGATIVE); METHAMPHETAM NEGATIVE (NEGATIVE); Opiates NEGATIVE (NEGATIVE); Phencyclidine NEGATIVE (NEGATIVE); THC Cannibis NEGATIVE (NEGATIVE)
[2022-11-30 00:17] LABS: Methadone ND (NEGATIVE)
[2022-11-30 00:19] LABS: Specific Gravity 1.025 (1.005-1.030); Urine Bacteria <20 /HPF (<20); Urine Bilirubin NEGATIVE (Negative); Urine Blood Negative (Negative); Urine Clarity Extremely Turbid (Clear); Urine Color Yellow (Yellow); Urine Glucose NEGATIVE (Negative); Urine Mucus 2+ /HPF (None Seen); Urine Protein 1+ (Negative); Urine RBC <5 /HPF (None Seen); Urine Urobilinogen 1+ (Normal); Urine WBC Clump Rare /HPF (None Seen); Urine pH 6.5 (5.0-7.0)
--- NOTE | 2022-11-30 03:05 | EDPHYS ---
Physician Documentation [facility] Name: Meron Delvalle Age: 32 yrs Sex: Female : 1990 Arrival Date: 11/29/2022 Time: 22:41 Bed 2 Private MD: ED Physician Valeriano Varela HPI: 11/29 23:00 This 32 yrs old Female presents to ER via EMS with complaints of Chest Pain. cp 23:00 The patient or guardian reports chest pain that is located primarily in the anterior cp chest wall. The pain does not radiate. Associated signs and symptoms: Pertinent negatives: cough, diaphoresis, dizziness, lower extremity pain, lower extremity swelling, syncope, fever. 23:00 The chest pain is described as a pressure. Duration: The patient or guardian reports a cp single episode, that is still ongoing. Severity of pain: in the emergency department the pain is unchanged despite home interventions. Historical: - Allergies: 23:13 No Known Allergies; rv - PMHx: 23:13 Asthma; Migraines; rv - PSHx: 23:13 Cholecystectomy; rv - Immunization history:: Adult Immunizations up to date. - Social history:: Smoking status: Patient denies any tobacco usage or history of. ROS: 23:03 Cardiovascular: Positive for chest pain, Negative for edema, palpitations, cp 23:03 Respiratory: Negative for cough, shortness of breath, wheezing, cp 23:03 Eyes: Negative for injury, pain, redness, and discharge, cp 23:03 Constitutional: Negative for body aches, chills, fever, poor PO intake, 23:03 Neck: Negative for pain with movement, pain at rest, stiffness, 23:03 Abdomen/GI: Negative for abdominal pain, vomiting, diarrhea, constipation, 23:03 Back: Negative for injury or acute deformity, decreased range of motion, radiated pain, 23:03 : Negative for urinary symptoms, 23:03 Neuro: Negative for altered mental status, dizziness, headache, numbness, syncope, weakness, 23:03 All other systems are negative, Exam: 23:03 ECG was reviewed by the Attending Physician. cp 23:05 Constitutional: The patient appears in no acute distress, alert, awake, cp non-diaphoretic, non-toxic, well developed, well nourished, 23:05 Head/Face: Normocephalic, atraumatic. cp 23:05 Eyes: Periorbital structures: appear normal, Conjunctiva: normal, no exudate, no injection, Sclera: no appreciated abnormality, Lids and lashes: appear normal, bilaterally, 23:05 ENT: External ear(s): are unremarkable, Nose: is normal, Mouth: Lips: moist, Oral mucosa: pink and intact, moist, Posterior pharynx: is normal, airway is patent, no erythema, no exudate, 23:05 Neck: ROM/movement: is normal, is supple, without pain, no range of motions limitations, 23:05 Chest/axilla: Inspection: normal, 23:05 Cardiovascular: Rate: normal, Rhythm: regular, Edema: is not appreciated, JVD: is not appreciated, 23:05 Respiratory: the patient does not display signs of respiratory distress, Respirations: normal, no use of accessory muscles, no retractions, labored breathing, is not present, Breath sounds: are clear throughout, no decreased breath sounds, no stridor, no wheezing, 23:05 Abdomen/GI: Inspection: abdomen appears normal, Bowel sounds: active, all quadrants, Palpation: abdomen is soft and non-tender, in all quadrants, 23:05 Back: CVA tenderness, is absent, 23:05 Neuro: Orientation: to person, place \T\ time. Mentation: is normal, Motor: moves all fours, strength is normal, Sensation: is normal, 11/30 03:18 ECG was reviewed by the Attending Physician. cp Vital Signs: 11/29 23:10 BP 187 / 122; Pulse 78; Resp 17; Temp 98.1; Pulse Ox 100% ; Weight 56.5 kg; Height 5 rv ft. 3 in. ; Pain 7/10; 23:15 BP 154 / 109; Pulse 78; Resp 17; Pulse Ox 100% on R/A; rv 23:41 BP 163 / 105; Pulse 71; Resp 14; Pulse Ox 100% ; bp 11/30 01:56 BP 156 / 98; Pulse 79; Resp 18; Pulse Ox 100% on R/A; rv 02:47 BP 143 / 104; Pulse 89; Resp 11; Pulse Ox 99% ; bp 03:21 BP 145 / 95; Pulse 81; Resp 17; Temp 98; Pulse Ox 100% on R/A; rv 11/29 23:10 Body Mass Index 22.06 (56.50 kg, 160.02 cm) rv 11/29 23:10 Pain Scale: Adult rv Jewel Coma Score: 01:56 Eye Response: spontaneous(4). Motor Response: obeys commands(6). Verbal Response: rv oriented(5). Total: 15. 03:21 Eye Response: spontaneous(4). Motor Response: obeys commands(6). Verbal Response: rv oriented(5). Total: 15. MDM: 11/29 22:49 Patient medically screened. 23:00 Differential diagnosis: acute myocardial infarction, acute pericarditis, anxiety, chest cp wall pain, cholecystitis, Cholelithiasis costochondritis, esophagitis, pancreatitis, pleurisy, pneumonia, pneumothorax, pulmonary embolus. 11/30 03:05 Data reviewed: vital signs, nurses notes, lab test result(s), EKG, radiologic studies, cp CT scan, plain films. 03:05 I considered the following discharge prescriptions or medication management in the emergency department Medications were administered in the Emergency Department. See MAR. Independent interpretation of the following test(s) in the Emergency Department EKG: See my EKG interpretation above. Special discussion: Based on the patient's history, exam, and Dx evaluation, there is no indication for emergent intervention or inpatient Tx. It is understood by the patient/guardian that if the Sx's persist or worsen they need to return immediately for re-evaluation. 11/29 22:55 Order name: Basic Metabolic Panel; Complete Time: 23:51 cp 11/29 23:51 Interpretation: Normal except: K 3.0; CRE 1.06; GFR 72. cp 11/29 22:55 Order name: CBC with Diff; Complete Time: 23:51 cp 11/29 23:52 Interpretation: Normal except: EOSINOPHIL % 5.1. 11/29 22:55 Order name: D-Dimer; Complete Time: 23:51 cp 11/29 22:55 Order name: LFT's; Complete Time: 23:51 cp 11/29 23:53 Interpretation: Normal except: AST 9; GLOB 3.9; A/G 0.9. 11/29 22:55 Order name: Magnesium; Complete Time: 23:51 cp 11/29 22:55 Order name: Troponin HS; Complete Time: 23:51 cp 10/17 22:55 Order name: Lipase; Complete Time: 23:51 cp 11/29 22:55 Order name: UDS; Complete Time: 00:30 11/29 22:55 Order name: Urinalysis W/Microscopic; Complete Time: 00:30 11/30 00:30 Interpretation: Normal except: [facility] Extremely Turbid; UPROT 1+; UUROB 1+. 11/29 22:55 Order name: PREGU; Complete Time: 00:30 11/29 22:55 Order name: XRAY Chest (1 view) 11/29 23:53 Order name: CT Chest For PE Angio 11/29 22:55 Order name: EKG; Complete Time: 22:56 11/29 22:55 Order name: Cardiac monitoring; Complete Time: 23:10 11/29 22:55 Order name: EKG - Nurse/Tech; Complete Time: 23:10 11/29 22:55 Order name: IV Saline Lock; Complete Time: 23:10 11/29 22:55 Order name: Labs collected and sent; Complete Time: 23:10 11/29 22:55 Order name: O2 Per Protocol; Complete Time: 23:10 11/29 22:55 Order name: O2 Sat Monitoring; Complete Time: 23:10 cp EC/17 23:03 Rate is 76 beats/min. Rhythm is regular. MT interval is normal. QRS interval is normal. cp QT interval is normal. T waves are Inverted in lead aVR. Interpreted by me. Reviewed by me. 11/30 03:18 Rate is 72 beats/min. Rhythm is regular. MT interval is normal. QRS interval is normal. cp QT interval is normal. T waves are Inverted in lead aVR. Interpreted by me. Reviewed by me. Administered Medications: 11/29 23:40 Drug: Ondansetron IVP 4 mg IVP once; over 2 minutes Route: IVP; Site: right antecubital;rv 11/30 01:55 Follow up: Response: No adverse reaction rv 11/29 23:40 Drug: Ketorolac IVP 15 mg IVP once Route: IVP; Site: right antecubital; rv 11/30 01:55 Follow up: Response: No adverse reaction rv 11/29 23:40 Drug: NS 0.9% IV 1000 ml IV at 1 bolus Per protocol; 1000 mL bolus Route: IV; Rate: 1 rv bolus; Site: right antecubital; 11/30 01:56 Follow up: IV Status: Completed infusion; IV Intake: 1000ml rv 03:20 Drug: Potassium PO Effervescent Tablet 50 mEq PO once; dissolve in 4 ounces of water or rv juice Route: PO; 03:21 Follow up: Response: Medication administered at discharge. rv 03:20 Drug: Potassium PO Effervescent Tablet 25 mEq PO once; dissolve in 4 ounces of water or rv juice Route: PO; 03:21 Follow up: Response: Medication administered at discharge. rv Disposition Summary: 11/30/22 03:05 Discharge Ordered Notes: Location: Home cp Problem: new cp Symptoms: have improved cp Condition: Stable cp Diagnosis - Chest pain, unspecified cp - Hypokalemia cp - Elevated blood-pressure reading, without diagnosis of hypertension cp Followup: cp - With: Private Physician - When: 2 - 3 days - Reason: Recheck today's complaints Discharge Instructions: - Discharge Summary Sheet cp - Nonspecific Chest Pain, Adult cp - Aspirin and Your Heart cp - Hypokalemia cp - How to Take Your Blood Pressure cp Forms: - Medication Reconciliation Form cp - Thank You Letter cp - Antibiotic Education cp - Prescription Opioid Use cp - Patient Portal Instructions cp - Leadership Thank You Letter cp Prescriptions: - Diclofenac Sodium 75 mg Oral Tablet Sustained Release - take 1 tablet ORAL route 2 times per day; 30 tablet; Refills: 0, Product cp Selection Permitted Addendum: 12/01/2022 05:31 Co-signature as Attending Physician, Valeriano Varela MD. e c2 Signatures: Dispatcher [employer] Myron Paredes PA PA cp Vicente, Ronaldo, JOSÉ ANTONIO RN Valeriano Farah MD MD ec2
--- NOTE | 2022-11-30 03:05 | ER ---
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 Coronavirus screen: At this time, the client does not indicate any symptoms associated with coronavirus-19. Ebola Screen: No symptoms or risks identified at this time. Initial Sepsis Screen: Does the patient meet any 2 criteria? No. Patient's initial sepsis screen is negative. Does the patient have a suspected source of infection? No. Patient's initial sepsis screen is negative. Risk Assessment: Do you want to hurt yourself or someone else? Patient reports no desire to harm self or others. Onset of symptoms was November 29, 2022. 23:10 Method Of Arrival: EMS: [facility] rv 23:10 Acuity: [facility]I 2 rv Triage Assessment: 23:13 General: Appears uncomfortable, Behavior is calm, cooperative. Pain: Complains of pain rv in chest. Neuro: Level of Consciousness is awake, alert, obeys commands, Oriented to person, place, time, situation. Cardiovascular: Reports chest pain, Capillary refill < 3 seconds Patient's skin is warm and dry. Respiratory: Airway is patent Respiratory effort is even, unlabored. GI: No signs and/or symptoms were reported involving the gastrointestinal system. : No signs and/or symptoms were reported regarding the genitourinary system. Derm: Skin is intact. Historical: - Allergies: 23:13 No Known Allergies; rv - PMHx: 23:13 Asthma; Migraines; rv - PSHx: 23:13 Cholecystectomy; rv - Immunization history:: Adult Immunizations up to date. - Social history:: Smoking status: Patient denies any tobacco usage or history of. Screenin:15 [facility] ED Fall Risk Assessment (Adult) History of falling in the last 3 months, rv including since admission No falls in past 3 months (0 pts) Score/Fall Risk Level 0 - 2 = Low Risk Oriented to surroundings. Abuse screen: Denies threats or abuse. Denies injuries from another. Nutritional screening: No deficits noted. Tuberculosis screening: No symptoms or risk factors identified. Assessment: 23:15 General: SEE TRIAGE NOTE. bp 23:41 Reassessment: No changes from previously documented assessment. Patient is alert, bp oriented x 3, equal unlabored respirations, skin warm/dry/pink. 11/30 02:47 Reassessment: Patient appears in no apparent distress at this time. Patient is alert, bp oriented x 3, equal unlabored respirations, skin warm/dry/pink. 03:20 Reassessment: Patient is alert, oriented x 3, equal unlabored respirations, skin rv warm/dry/pink. Vital Signs: 11/29 23:10 BP 187 / 122; Pulse 78; Resp 17; Temp 98.1; Pulse Ox 100% ; Weight 56.5 kg; Height 5 rv ft. 3 in. ; Pain 7/10; 23:15 BP 154 / 109; Pulse 78; Resp 17; Pulse Ox 100% on R/A; rv 23:41 BP 163 / 105; Pulse 71; Resp 14; Pulse Ox 100% ; bp 10/18 01:56 BP 156 / 98; Pulse 79; Resp 18; Pulse Ox 100% on R/A; rv 02:47 BP 143 / 104; Pulse 89; Resp 11; Pulse Ox 99% ; bp 03:21 BP 145 / 95; Pulse 81; Resp 17; Temp 98; Pulse Ox 100% on R/A; rv 11/29 23:10 Body Mass Index 22.06 (56.50 kg, 160.02 cm) rv 11/29 23:10 Pain Scale: Adult rv Jewel Coma Score: 01:56 Eye Response: spontaneous(4). Motor Response: obeys commands(6). Verbal Response: rv oriented(5). Total: 15. 03:21 Eye Response: spontaneous(4). Motor Response: obeys commands(6). Verbal Response: rv oriented(5). Total: 15. ED Course: 11/29 22:48 Patient arrived in ED. rv 22:48 Myron Riley PA is PHCP. cp 22:48 Valeriano Varela MD is Attending Physician. cp 23:12 Triage completed. rv 23:13 Arm band placed on right wrist. rv 23:15 Patient has correct armband on for positive identification. Client placed on continuous rv cardiac and pulse oximetry monitoring. NIBP monitoring applied. campus monitor on. 23:15 Inserted saline lock: 20 gauge in right antecubital area, using aseptic technique. rv Blood collected. 23:30 Masood Izaguirre, RN is Primary Nurse. rv 11/30 00:58 CT Chest For PE Angio In Process Unspecified. EDMS 03:21 No provider procedures requiring assistance completed. IV discontinued, intact, rv bleeding controlled, No redness/swelling at site. Pressure dressing applied. 08:09 XRAY Chest (1 view) In Process Unspecified. EDMS Administered Medications: 11/29 23:40 Drug: Ondansetron IVP 4 mg IVP once; over 2 minutes Route: IVP; Site: right antecubital;rv 11/30 01:55 Follow up: Response: No adverse reaction rv 11/29 23:40 Drug: Ketorolac IVP 15 mg IVP once Route: IVP; Site: right antecubital; rv 11/30 01:55 Follow up: Response: No adverse reaction rv 11/29 23:40 Drug: NS 0.9% IV 1000 ml IV at 1 bolus Per protocol; 1000 mL bolus Route: IV; Rate: 1 rv bolus; Site: right antecubital; 11/30 01:56 Follow up: IV Status: Completed infusion; IV Intake: 1000ml rv 03:20 Drug: Potassium PO Effervescent Tablet 50 mEq PO once; dissolve in 4 ounces of water or rv juice Route: PO; 03:21 Follow up: Response: Medication administered at discharge. rv 03:20 Drug: Potassium PO Effervescent Tablet 25 mEq PO once; dissolve in 4 ounces of water or rv juice Route: PO; 03:21 Follow up: Response: Medication administered at discharge. rv Medication: 11/29 23:15 VIS not applicable for this client. rv Intake: 11/30 01:56 IV: 1000ml; Total: 1000ml. rv Outcome: 03:05 Discharge ordered by . cp 03:21 Discharged to home ambulatory, rv 03:21 Condition: good 03:21 Discharge instructions given to patient, Instructed on discharge instructions, follow up and referral plans. medication usage, Demonstrated understanding of instructions, follow-up care, medications, Prescriptions given X 1, 03:22 Patient left the ED. rv Signatures: Dispatcher [employer] EDMS Myron Riley PA PA cp Peltier, Brian, RN RN Masood Sun RN RN rv
[2022-11-30] MEDS ORDERED: POTASSIUM 25 MEQ EFFERV TAB ONE (03:22)
[2022-11-30 06:10] VITALS: BP 145/95; TEMP 98; O2SAT 100
--- NOTE | 2022-11-30 12:24 | EKG ---
Test Date: 2022-11-29 Test Time: 22:56:13 Count Team Member: RV MEASUREMENT RESULTS: Intervals: Rate: 76 NH: 120 QRSD: 82 QT: 368 QTc: 414 [place]: P: 60 NH: 120 QRS: 71 T: 77 INTERPRETIVE STATEMENTS: Normal sinus rhythm Nonspecific ST and T wave abnormality Abnormal ECG No previous ECG available for comparison Electronically Signed On 11-30-22 12:23:11 CDT by Angel Guerra
--- NOTE | 2022-11-30 12:24 | EKG ---
Test Date: 2022-11-30 Test Time: 03:13:52 Liaison Planner: RV MEASUREMENT RESULTS: Intervals: Rate: 72 OH: 130 QRSD: 88 QT: 424 QTc: 464 [place]: P: 60 OH: 130 QRS: 63 T: 60 INTERPRETIVE STATEMENTS: Normal sinus rhythm Normal ECG Compared to ECG 11/29/2022 22:56:13 ST (T wave) deviation no longer present Electronically Signed On 11-30-22 12:23:05 CDT by Angel Guerra
--- NOTE | 2022-11-30 15:11 | RAD REPORT ---
EXAM DESCRIPTION: CT Angiography Chest With Intravenous Contrast CLINICAL HISTORY: The patient is 32 years old and is Female; CHEST PAIN TECHNIQUE: Axial computed tomographic angiography images of the chest with intravenous contrast. S agittal and coronal reformatted images were created and reviewed. This CT exam was performed using one or more of the following dose reduction techniques: automated exposure control, adjustment of t he mA and/or kV according to patient size, and/or use of iterative reconstruction technique. MIP reconstructed images were created and reviewed. COMPARISON: No relevant prior studies available. FINDINGS: PULMONARY ARTERIES: There are no obvious filling defects identified within the pulmonary arteries to suggest pulmonary embolism. AORTA: No acute findings. No thoracic aortic aneurysm. LUNGS: Unremarkable. No mass. No consolidation. PLEURAL SPACE: Unremarkable. No significant effusion. No pneumothorax. HEART: Unremarkable. No cardiomegaly. No significant pericardial effusion. No evidence of R V dysfunction. BONES/JOINTS: No acute fracture. No dislocation. SOFT TISSUES: Unremarkable. LYMPH NODES: Unremarkable. No enlarged lymph nodes. GALLBLADDER AND BILE DUCTS: Surgical clips are present in the right upper quadrant, consistent wi th previous cholecystectomy. PANCREAS: Suggestion of subtle inflammation surrounding the distal body and tail the pancreas is raised. IMPRESSION: 1. No evidence of pulmonary embolism. 2. Findings concerning for mild acute pancreatitis. Correlation patient's laboratory values is jennifer mmended. Electronically signed by: Olinda Rg MD 11/30/2022 2:35 AM CDT Due to temporary technical issues with the PACS/Fluency reporting system, reports are being signed by the in house radiologists without review as a courtesy to insure prompt reporting. The interpreting radiologist is fully responsible for the content of the report.
--- NOTE | 2022-11-30 18:30 | RAD REPORT ---
EXAM DESCRIPTION: XR Chest, 1 View CLINICAL HISTORY: CHEST PAIN TECHNIQUE: Frontal view of the chest. COMPARISON: No relevant prior studies available. FINDINGS: Lungs: Unremarkable. No consolidation. Pleural space: Unremarkable. No pneumothorax. Heart: Unremarkable. No cardiomegaly. Mediastinum: Unremarkable. Bones/joints: Unremarkable. IMPRESSION: No acute disease. Electronically signed by: Navarro Girard MD 11/30/2022 3:42 AM CDT Due to temporary technical issues with the PACS/Fluency reporting system, reports are being signed by the in house radiologists without review as a courtesy to insure prompt reporting. The interpreting radiologist is fully responsible for the content of the report.
== END 2022-11-30 03:22 | disposition home or self-care (01) ==
LOC: ER 22:41
DX: R07.89 Other chest pain (principal); E87.6 Hypokalemia; R03.0 Elevated blood-pressure reading, without diagnosis of hypertension
CPT/HCPCS: 36415; 71045; 71275; 80048; 80076; 80307; 81001; 81025; 83690; 83735; 84484; 85025; 85379; 93005; J2405; J7030; Q9967